=== PATIENT | male | born 1930 | race Caucasian/White ===

== ENCOUNTER 2017-03-26 00:02 | Inpatient (IN) | payer MEDICARE ==
[~2017-03-26] VITALS: Ht 167.6 cm; Wt 80.5 kg
[2017-03-26] MEDS ORDERED: CITA10TA8 PO (01:00)
[2017-03-26] MEDS ORDERED: HYDR12.58 PO (01:00)
[2017-03-26] MEDS ORDERED: LISI-334 PO (01:00)
[2017-03-26] MEDS ORDERED: OMEG-33 PO (01:00)
[2017-03-26] MEDS ORDERED: MEMA10TA PO (01:00)
[2017-03-26] MEDS ORDERED: DONE10TA61 PO (01:00)
[2017-03-26] MEDS ORDERED: CARB1TAB5 PO (01:00)
[2017-03-26] MEDS ORDERED: OMEP20TA63 PO (01:00)
[2017-03-26] MEDS ORDERED: LEVE500T56 PO (01:00)
[2017-03-26 02:57] VITALS: BP 144/75
[2017-03-26] MEDS ORDERED: METHYL SALICYLATE/MENTHOL TOPICAL OINTMENT 29GM TUBE. TP PRN (03:00)
[2017-03-26] MEDS ORDERED: ACETAMINOPHEN 325 MG TABLET PO PRN (03:00)
[2017-03-26] MEDS ORDERED: MAGNESIUM HYDROXIDE 2,400 MG/30 ML ORAL.SUSP. PO PRN (03:00)
[2017-03-26] MEDS ORDERED: MAG HYDROX/AL HYDROX/SIMETH 30 ML ORAL.SUSP PO PRN (03:00)
[2017-03-26 06:10] VITALS: BP 158/78
[2017-03-26] MEDS ORDERED: traZODone 50 MG TABLET. PO PRN ×2 (06:45→19:30)
[2017-03-26] MEDS: PANTOPRAZOLE 40 MG TABLET. PO SCH (07:27)
[2017-03-26] MEDS ORDERED: CITALOPRAM 10 MG TABLET. PO SCH (09:00)
[2017-03-26] MEDS ORDERED: FLU VACC QS2017-18 (36MOS+)/PF 0.5 ML SYRINGE. VAX IM ONE (09:00)
[2017-03-26] MEDS: levETIRAcetam 500 MG TABLET PO SCH ×2 (10:37→19:49)
[2017-03-26] MEDS: OMEGA-3 FATTY ACIDS/FISH OIL 1,000 MG CAPSULE. PO SCH (10:37)
[2017-03-26] MEDS: CARBIDOPA/LEVODOPA CR 50/200MG TABLET.SA PO SCH ×2 (10:37→19:49)
[2017-03-26] MEDS: MEMANTINE 10 MG TABLET. PO SCH ×2 (10:37→19:50)
[2017-03-26] MEDS: LISINOPRIL 20 MG TABLET PO SCH (10:38)
[2017-03-26] MEDS: hydroCHLOROthiazide 12.5 MG CAPSULE PO SCH (10:38)
[2017-03-26 15:57] VITALS: BP 147/75
--- NOTE | 2017-03-26 16:22 | EKG ---
[address] [address] Test Date: 2017-03-26 Test Time: 16:19:34 Pat Name: FATOU HIGGINS Department: Room: [address] [place] [address] Gender: M Burrer Machine: : [id number] Requested By: KOSTAS FONTANEZ Order Number: [id number] Reading MD: Rodrigo Apodaca Measurements Intervals [place] Rate: 73 P: 49 CO: 160 QRS: 12 QRSD: 72 T: 28 QT: 394 QTc: 438 Interpretive Statements SINUS RHYTHM Electronically Signed On 03-28-2017 8:33:21 CDT by Rodrigo Apodaca
[2017-03-26] MEDS: traZODone 100 MG TABLET. PO SCH (19:49)
[2017-03-26] MEDS: DONEPEZIL HCL 10 MG TABLET PO SCH (19:50)
[2017-03-26] MEDS: MIRTAZAPINE 7.5 MG TABLET. PO SCH (19:50)
--- NOTE | 2017-03-26 20:33 | PDOC ---
Exam Je Demential Exam: Je Note: Please also refer to the separate dictated note~for this date of service dictated separately.~Patient seen individually. Discussed the patient with Nursing staff reviewed the chart.~Reviewed interim history and current functioning. Reviewed vital signs,~Labs/ Radiology~and current medications noted below. Continue current treatment with the changes noted in the dictated addendum note Assessment: Vital Signs: Vital Signs Date Time Temp Pulse Resp B/P (MAP) Pulse Ox O2 Delivery O2 Flow Rate FiO2 03/26/17 15:57 97.2 60 18 147/75 (99) 93 03/26/17 06:10 Room Air I&O Intake and Output 03/27/17 07:00 Intake Total 720 ml Balance 720 ml Intake Oral 720 ml Current Medications: Meds: Current Medications Influenza Virus Vaccine Quadrival (Fluarix Quad [id number] Syringe) 0.5 ml ONCE ONCE VAX IM ; Start 03/26/17 at 09:00; Stop 03/26/17 at 19:21; Status DC Acetaminophen (Tylenol) 650 mg PRN Q6HRS PRN PO PAIN / TEMP; Start 03/26/17 at 03:00 Multi-Ingredient Ointment (Analgesic [place]) 1 mary PRN QID PRN TP MUSCLE PAIN; Start 03/26/17 at 03:00 Al Hydroxide/Mg Hydroxide (Mylanta Plus Xs) 15 ml PRN AFTMEALHC PRN PO DYSPEPSIA; Start 03/26/17 at 03:00 Magnesium Hydroxide (Milk Of Magnesia) 2,400 mg PRN QHS PRN PO CONSTIPATION; Start 03/26/17 at 03:00 Citalopram Hydrobromide (CeleXA) 10 mg DAILY PO Last administered on 10:37; Start 03/26/17 at 09:00; Stop 03/26/17 at 19:27; Status DC Donepezil HCl (Aricept) 10 mg QHS PO Last administered on 03/26/17 19:50; Start 03/26/17 at 21:00 Memantine (Namenda) 10 mg BID PO Last administered on 03/26/17 19:50; Start 03/26/17 at 09:00 Carbidopa/Levodopa (Sinemet Cr) 1 tab.sa BID PO Last administered on 19:49; Start 03/26/17 at 09:00 Levetiracetam (Keppra) 500 mg BID PO Last administered on 03/26/17 19:49; Start 03/26/17 at 09:00 Lisinopril (Prinivil) 20 mg DAILY PO Last administered on 03/26/17 10:38; Start 03/26/17 at 09:00 Hydrochlorothiazide (Microzide) 12.5 mg DAILY PO Last administered on 10:38; Start 03/26/17 at 09:00 Fish Oil (Fish Oil) 1,000 mg DAILY PO Last administered on 03/26/17 10:37; Start 03/26/17 at 09:00 Pantoprazole Sodium (Protonix) 40 mg DAILYAC PO Last administered on 07:27; Start 03/26/17 at 07:30 Olanzapine (ZyPREXA ZYDIS) 2.5 mg PRN Q2HR PRN PO PSYCHOSIS Last administered on 03/26/17 07:27; Start 03/26/17 at 06:45 Trazodone HCl (Desyrel) 50 mg QHS PO ; Start 03/26/17 at 21:00; Stop 03/26/17 at 21:00; Status DC Trazodone HCl (Desyrel) 50 mg PRN QHS PRN PO INSOMNIA; Start 03/26/17 at 06:45 ; Stop 03/26/17 at 19:27; Status DC Influenza Virus Vaccine Quadrival (Fluarix Quad [id number] Syringe) 0.5 ml ONCE ONCE VAX IM ; Start 03/28/17 at 09:00; Stop 03/28/17 at 09:01 Trazodone HCl (Desyrel) 100 mg PRN QHS PRN PO INSOMNIA; Start 03/26/17 at 19: 30; Stop 03/26/17 at 19:32; Status DC Trazodone HCl (Desyrel) 100 mg QHS PO ; Start 03/26/17 at 21:00; Stop at 21:00; Status DC Sertraline HCl (Zoloft) 50 mg DAILY PO ; Start 03/27/17 at 09:00 Mirtazapine (Remeron) 7.5 mg QHS PO Last administered on 03/26/17 19:50; Start 03/26/17 at 21:00 Trazodone HCl (Desyrel) 100 mg QHS PO Last administered on 03/26/17 19:49; Start 03/26/17 at 21:00 Trazodone HCl (Desyrel) 100 mg PRN QHS PRN PO Insomnia; Start 03/26/17 at 19: 30 Active Scripts Active Reported Prilosec Otc (Omeprazole Magnesium) 20 Mg Tablet.dr 20 Mg PO DAILY [place] 3 1,000 Mg Softgel ([place]-3 Fatty Acids/Fish Oil) 1 Each Capsule 1,000 Mg PO DAILY Namenda (Memantine Hcl) 10 Mg Tablet 10 Mg PO BID Lisinopril 20 Mg Tablet 20 Mg PO DAILY Keppra (Levetiracetam) 500 Mg Tablet 500 Mg PO BID Hydrochlorothiazide Tablet (Hydrochlorothiazide) 12.5 Mg Tablet 12.5 Mg PO DAILY Aricept (Donepezil Hcl) 10 Mg Tablet 10 Mg PO QHS Celexa (Citalopram Hydrobromide) 10 Mg Tablet 10 Mg PO DAILY Sinemet Cr 50-200 Tablet (Carbidopa/Levodopa) 1 Each Tablet.er 1 Tab PO BID OSMANY KEYES MD Mar 26, 2017 20:33
[2017-03-26 20:59] LABS: BASO # 0.1 x10^3/uL (0.0-0.2); BASO % 1 % (0-3); EOS # 0.3 x10^3/uL (0.0-0.7); EOS % 3 % (0-3); HEMATOCRIT 45.5 % (39.0-53.0); HEMOGLOBIN 15.5 g/dL (13.0-17.5); LYMPH # 2.7 x10^3/uL (1.0-4.8); LYMPH % 29 % (24-48); MEAN CORPUSCULAR HEMOGLOBIN 32 pg (25-35); MEAN CORPUSCULAR HGB CONC 34 g/dL (31-37); MEAN CORPUSCULAR VOLUME 93 fL (79-100); MONO # 1.1 x10^3/uL (0.0-1.1); MONO % 12 % (0-9); NEUT % 55 % (31-73); PLATELET COUNT 252 x10^3/uL (140-400); RED BLOOD COUNT 4.87 x10^6/uL (4.30-5.70); RED CELL DISTRIBUTION WIDTH 13.6 % (11.5-14.5); WHITE BLOOD COUNT 9.3 x10^3/uL (4.0-11.0)
[2017-03-26] MEDS ORDERED: traZODone 50 MG TABLET. PO SCH ×2 (21:00)
[2017-03-26 21:12] LABS: ALBUMIN 3.7 g/dL (3.4-5.0); ALBUMIN/GLOBULIN RATIO 1.1 (1.0-1.7); CALCIUM 9.3 mg/dL (8.5-10.1); GFR 71.2; MAGNESIUM 1.9 mg/dL (1.8-2.4); POTASSIUM 3.7 mmol/L (3.5-5.1); TOTAL BILIRUBIN 1.3 mg/dL (0.2-1.0); TOTAL PROTEIN 7.2 g/dL (6.4-8.2)
[2017-03-27 05:44] VITALS: BP 127/57
[2017-03-27] MEDS: MEMANTINE 10 MG TABLET. PO SCH ×2 (07:39→20:00)
[2017-03-27] MEDS: CARBIDOPA/LEVODOPA CR 50/200MG TABLET.SA PO SCH ×2 (07:39→20:00)
[2017-03-27] MEDS: PANTOPRAZOLE 40 MG TABLET. PO SCH (07:41)
[2017-03-27] MEDS: levETIRAcetam 500 MG TABLET PO SCH ×2 (07:41→20:01)
[2017-03-27] MEDS: hydroCHLOROthiazide 12.5 MG CAPSULE PO SCH (07:41)
[2017-03-27] MEDS: OMEGA-3 FATTY ACIDS/FISH OIL 1,000 MG CAPSULE. PO SCH (07:41)
[2017-03-27] MEDS: LISINOPRIL 20 MG TABLET PO SCH (07:41)
[2017-03-27] MEDS: SERTRALINE 50 MG TABLET. PO SCH (07:42)
--- NOTE | 2017-03-27 14:35 | HP ---
ADMIT DATE: 03/26/2017 PSYCHIATRIC ADMISSION HISTORY/EVALUATION DATE OF ADMISSION: 03/26/2017 ADMITTING PHYSICIAN: Dre Oliva MD IDENTIFYING DATA: The patient is an 86-year-old male, referred to us from [facility] where he presented to the Emergency Room from his home on account of increased agitation, being angry, aggressive, wandering out of the house next to the highway trying to drive. He has been combative, delusional, losing weight and family have been taking him to the Emergency Room several times and attempts have been made at placement, all of which have failed. Behaviors were deemed dangerous, out of control, unmanageable consequent to his dementia, delusions, agitation. He is referred for inpatient psychiatric stabilization. CHIEF COMPLAINT: "He has a need to get to [place]." His informant, current and past records reliable. Patient's reliability poor due to his dementia, nursing information reliable. HISTORY OF PRESENT ILLNESS: The patient has a history of dementia, Alzheimer's, vascular with questionably secondary to Parkinson's and Lewy body. He has been residing at home with family, but as noted above, behaviors have been getting out of control, unmanageable, dangerous. He has been attempting to ask strangers for a ride to [place]. He is at risk for injury to self due to elopement next to a highway, trying to drive ____ seeking. He has had sleep and appetite changes with weight loss. Delusions have been worsening. No active suicidal or homicidal ideation other than dangerous behaviors noted above. No clear history of bipolar disorder. PAST PSYCHIATRIC HISTORY: As above. MEDICAL HISTORY: Parkinson's disease, hyperlipidemia, hypertension, CA prostate, GERD, history of seizure disorder. ALLERGIES: PENICILLIN. He is a full code. ACCU-CHEKS: None. Diet is regular. Takes his medications whole. Ambulates independently. UA was negative at [facility] Emergency Room. CURRENT PSYCHOTROPICS: Namenda 10 mg b.i.d., Celexa 10 mg a day, Aricept 10 mg at bedtime, Keppra 500 mg b.i.d., trazodone 50 mg at bedtime, may repeat x 1 and Zyprexa was added p.r.n. following his hospitalization here with us for psychosis, agitation. FAMILY HISTORY: Noncontributory. SOCIAL HISTORY: No alcohol, drug abuse, physical, sexual or elder abuse. He is not known to be a perpetrator. 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 He is wearing a red hat ambulating up and down the hallway, initially on the telephone with his family, oriented to himself. Insight, judgment, recent and remote memory, attention, concentration, fund of knowledge poor, consistent with his diagnosis. He is somewhat delusional, suspicious. Attention span short. Language function intact. No active suicidal or homicidal ideation. Insight poor. Judgment poor, consequent to above. While on the unit, he has been checking doors repeatedly, rattles the door, resistive to medications. Slept very poorly the previous evening, though he was admitted very early in the morning at 5:00 a.m., does a little better with certain staff members. REVIEW OF SYSTEMS: No CV, , eye, ENT or pulmonary system symptoms on review. Reliability poor. Reaction to hospitalization, the patient oblivious of this. ASSETS: The patient is reasonably healthy, supportive family. IMPRESSION: Major neurocognitive disorder, multifactorial; Alzheimer's, vascular, possibly secondary to Parkinson's with delusion; depression, behavioral disturbance; anxiety disorder, unspecified; impulse control disorder, unspecified; psychotic disorder, unspecified. Rest diagnosis as noted above. TREATMENT PLAN: Admit to the geropsychiatry unit at [facility]. I will see the patient daily individually from a psychiatric standpoint. Medical followup per Dr. Castellanos/Dr. Chamberlain. We will change the Celexa to Zoloft 50 mg a day, which should be more efficacious from his anxiety, mood symptoms and agitation. We will increase trazodone to 100 mg at bedtime, may repeat x 1 p.r.n. insomnia. Continue the rest of his psychotropics, observe baseline, then adjust as clinically indicated. May add Depakote as a mood stabilizer, consider whether Keppra could be worsening his agitation as well. We will have a Neurology consult with Dr. Friedman for seizure disorder management. MAN Diana OLIVA MD DR: MARAL/quinton JOB#: [id number] / [id number]
[2017-03-27 16:07] VITALS: BP 103/63
[2017-03-27 17:45] LABS: THYROID STIM HORMONE (TSH) 1.87 uIU/mL (0.358-3.740)
[2017-03-27 19:12] LABS: T3 TOTAL 120 ng/dL (71-180); THYROXINE 6.3 ug/dL (4.5-12.0)
[2017-03-27] MEDS: DONEPEZIL HCL 10 MG TABLET PO SCH (20:00)
[2017-03-27] MEDS: MIRTAZAPINE 7.5 MG TABLET. PO SCH (20:00)
[2017-03-27] MEDS: traZODone 100 MG TABLET. PO SCH ×2 (20:01→22:26)
--- NOTE | 2017-03-27 21:59 | PDOC ---
Exam Je Demential Exam: Je Note: Please also refer to the separate dictated note~for this date of service dictated separately.~Patient seen individually. Discussed the patient with Nursing staff reviewed the chart.~Reviewed interim history and current functioning. Reviewed vital signs,~Labs/ Radiology~and current medications noted below. Continue current treatment with the changes noted in the dictated addendum note Assessment: Vital Signs: Vital Signs Date Time Temp Pulse Resp B/P (MAP) Pulse Ox O2 Delivery O2 Flow Rate FiO2 03/27/17 16:07 98.2 78 16 103/63 (76) 95 03/26/17 06:10 Room Air I&O Intake and Output 03/28/17 07:00 Intake Total 240 ml Balance 240 ml Intake Oral 240 ml Current Medications: Meds: Current Medications Influenza Virus Vaccine Quadrival (Fluarix Quad [id number] Syringe) 0.5 ml ONCE ONCE VAX IM ; Start 03/26/17 at 09:00; Stop 03/26/17 at 19:21; Status DC Acetaminophen (Tylenol) 650 mg PRN Q6HRS PRN PO PAIN / TEMP; Start 03/26/17 at 03:00 Multi-Ingredient Ointment (Analgesic [place]) 1 mary PRN QID PRN TP MUSCLE PAIN; Start 03/26/17 at 03:00 Al Hydroxide/Mg Hydroxide (Mylanta Plus Xs) 15 ml PRN AFTMEALHC PRN PO DYSPEPSIA; Start 03/26/17 at 03:00 Magnesium Hydroxide (Milk Of Magnesia) 2,400 mg PRN QHS PRN PO CONSTIPATION; Start 03/26/17 at 03:00 Citalopram Hydrobromide (CeleXA) 10 mg DAILY PO Last administered on 10:37; Start 03/26/17 at 09:00; Stop 03/26/17 at 19:27; Status DC Donepezil HCl (Aricept) 10 mg QHS PO Last administered on 03/27/17 20:00; Start 03/26/17 at 21:00 Memantine (Namenda) 10 mg BID PO Last administered on 03/27/17 20:00; Start 03/26/17 at 09:00 Carbidopa/Levodopa (Sinemet Cr) 1 tab.sa BID PO Last administered on 20:00; Start 03/26/17 at 09:00 Levetiracetam (Keppra) 500 mg BID PO Last administered on 03/27/17 20:01; Start 03/26/17 at 09:00 Lisinopril (Prinivil) 20 mg DAILY PO Last administered on 03/27/17 07:41; Start 03/26/17 at 09:00 Hydrochlorothiazide (Microzide) 12.5 mg DAILY PO Last administered on 07:41; Start 03/26/17 at 09:00 Fish Oil (Fish Oil) 1,000 mg DAILY PO Last administered on 03/27/17 07:41; Start 03/26/17 at 09:00 Pantoprazole Sodium (Protonix) 40 mg DAILYAC PO Last administered on 07:41; Start 03/26/17 at 07:30 Olanzapine (ZyPREXA ZYDIS) 2.5 mg PRN Q2HR PRN PO PSYCHOSIS Last administered on 03/27/17 14:57; Start 03/26/17 at 06:45 Trazodone HCl (Desyrel) 50 mg QHS PO ; Start 03/26/17 at 21:00; Stop 03/26/17 at 21:00; Status DC Trazodone HCl (Desyrel) 50 mg PRN QHS PRN PO INSOMNIA; Start 03/26/17 at 06:45 ; Stop 03/26/17 at 19:27; Status DC Influenza Virus Vaccine Quadrival (Fluarix Quad [id number] Syringe) 0.5 ml ONCE ONCE VAX IM ; Start 03/28/17 at 09:00; Stop 03/28/17 at 09:01 Trazodone HCl (Desyrel) 100 mg PRN QHS PRN PO INSOMNIA; Start 03/26/17 at 19: 30; Stop 03/26/17 at 19:32; Status DC Trazodone HCl (Desyrel) 100 mg QHS PO ; Start 03/26/17 at 21:00; Stop at 21:00; Status DC Sertraline HCl (Zoloft) 50 mg DAILY PO Last administered on 03/27/17 07:42; Start 03/27/17 at 09:00 Mirtazapine (Remeron) 7.5 mg QHS PO Last administered on 03/27/17 20:00; Start 03/26/17 at 21:00 Trazodone HCl (Desyrel) 100 mg QHS PO Last administered on 03/27/17 20:01; Start 03/26/17 at 21:00 Trazodone HCl (Desyrel) 100 mg PRN QHS PRN PO Insomnia; Start 03/26/17 at 19: 30 Quetiapine Fumarate (SEROquel) 12.5 mg BID92 PO ; Start 03/28/17 at 09:00 Active Scripts Active Reported Prilosec Otc (Omeprazole Magnesium) 20 Mg Tablet.dr 20 Mg PO DAILY [place] 3 1,000 Mg Softgel ([place]-3 Fatty Acids/Fish Oil) 1 Each Capsule 1,000 Mg PO DAILY Namenda (Memantine Hcl) 10 Mg Tablet 10 Mg PO BID Lisinopril 20 Mg Tablet 20 Mg PO DAILY Keppra (Levetiracetam) 500 Mg Tablet 500 Mg PO BID Hydrochlorothiazide Tablet (Hydrochlorothiazide) 12.5 Mg Tablet 12.5 Mg PO DAILY Aricept (Donepezil Hcl) 10 Mg Tablet 10 Mg PO QHS Celexa (Citalopram Hydrobromide) 10 Mg Tablet 10 Mg PO DAILY Sinemet Cr 50-200 Tablet (Carbidopa/Levodopa) 1 Each Tablet.er 1 Tab PO BID Diagnosis: Problems: (1) Alzheimer's dementia (2) Anxiety disorder (3) Impulse control disorder (4) Major depressive disorder, recurrent episode (5) Major neurocognitive disorder, due to vascular disease, with behavioral disturbance, mild (6) Parkinson's disease (7) Vascular dementia with behavioral disturbance OSMANY KEYES MD Mar 27, 2017 21:59
[2017-03-28 05:13] LABS: HEMOGLOBIN A1C 5.2 % (4.8-5.6)
[2017-03-28 05:34] VITALS: BP 155/78
[2017-03-28] MEDS: levETIRAcetam 500 MG TABLET PO SCH ×2 (07:59→19:57)
[2017-03-28] MEDS: PANTOPRAZOLE 40 MG TABLET. PO SCH (07:59)
[2017-03-28] MEDS: CARBIDOPA/LEVODOPA CR 50/200MG TABLET.SA PO SCH ×2 (07:59→19:58)
[2017-03-28] MEDS: SERTRALINE 50 MG TABLET. PO SCH (07:59)
[2017-03-28] MEDS: OMEGA-3 FATTY ACIDS/FISH OIL 1,000 MG CAPSULE. PO SCH ×2 (08:00→09:00)
[2017-03-28] MEDS: LISINOPRIL 20 MG TABLET PO SCH (08:00)
[2017-03-28] MEDS: hydroCHLOROthiazide 12.5 MG CAPSULE PO SCH (08:00)
[2017-03-28] MEDS: MEMANTINE 10 MG TABLET. PO SCH ×2 (08:00→19:58)
[2017-03-28] MEDS ORDERED: QUEtiapine 25 MG TABLET. ONE (08:02)
[2017-03-28] MEDS: QUEtiapine 25 MG TABLET. PO SCH ×3 (08:03→15:51)
[2017-03-28] MEDS ORDERED: FLU VACC QS2017-18 (36MOS+)/PF 0.5 ML SYRINGE. VAX IM ONE (09:00)
--- NOTE | 2017-03-28 10:54 | HP ---
ADMIT DATE: 03/26/2017 REASON FOR ADMISSION TO SENIOR BEHAVIORAL UNIT: This is an 86-year-old gentleman, who actually came from his own home where he has had increased agitation, angry, aggressive, wandering out of the house next to the highway trying to drive, losing weight and combative. He has had several visits to the ER at [facility], but has not had any inpatient visits. He himself says he is angry and that he knows when he goes out for a walk he always comes back. He is confused. His daughter is his guardian. ALLERGIES: PENICILLIN. PAST MEDICAL HISTORY: Parkinson's, dementia, hyperlipidemia, hypertension, prostate cancer, and GERD. MEDICATIONS: Reviewed and are available on the MAR. SOCIAL HISTORY: He is a . He has 2 daughters. He states he lived with them, but he states he had his own house. 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 REVIEW OF SYSTEMS: The patient denies any complaints and became annoyed when I asked him, do you have a sore throat, fever, etc., he became annoyed. OBJECTIVE: VITAL SIGNS: Blood pressure 127/57, pulse 67, temperature 98.2, pulse ox 95% on room air. Height 66 inches, weight 178 pounds. GENERAL: Well kept elderly gentleman in no acute distress. HEENT: His TMs were intact. His eyes were clear. Nose was patent. Throat was clear. NECK: Supple, without adenopathy. There were no carotid bruits. LUNGS: Clear to auscultation. CARDIOVASCULAR: Regular rhythm and rate. ABDOMEN: Soft, nontender. EXTREMITIES: Without edema. Cranial nerves were intact. He has a severe resting tremor, particularly the left arm. MENTAL STATUS: Alert and oriented x 2. He is having trouble with word finding and with coming up with the person or place that he wants to talk about or date. He stated he was 70 years old. Did state he was a . LABORATORY DATA: Normal CBC DICTATION ENDS HERE. JATINDER PENN DO DR: JEREMIAH/quinton JOB#: [id number] / [id number]
[2017-03-28] MEDS ORDERED: CYANOCOBALAMIN (VITAMIN B-12) 1,000 MCG/ML VIAL IM SCH (14:00)
[2017-03-28] MEDS: CHOLECALCIFEROL (VITAMIN D3) 50,000 UNIT CAPSULE PO SCH ×2 (15:51→19:58)
[2017-03-28 16:28] VITALS: BP 102/66
[2017-03-28] MEDS: MIRTAZAPINE 7.5 MG TABLET. PO SCH (19:58)
[2017-03-28] MEDS: DONEPEZIL HCL 10 MG TABLET PO SCH (19:58)
[2017-03-28] MEDS: traZODone 100 MG TABLET. PO PRN (19:59)
--- NOTE | 2017-03-28 20:42 | PDOC ---
Exam Je Demential Exam: Je Note: Please also refer to the separate dictated note~for this date of service dictated separately.~Patient seen individually. Discussed the patient with Nursing staff reviewed the chart.~Reviewed interim history and current functioning. Reviewed vital signs,~Labs/ Radiology~and current medications noted below. Continue current treatment with the changes noted in the dictated addendum note Assessment: Vital Signs: Vital Signs Date Time Temp Pulse Resp B/P (MAP) Pulse Ox O2 Delivery O2 Flow Rate FiO2 03/28/17 16:28 97.4 73 18 102/66 (78) 93 Room Air I&O Intake and Output 03/29/17 07:00 Intake Total 900 ml Balance 900 ml Intake Oral 900 ml Current Medications: Meds: Current Medications Influenza Virus Vaccine Quadrival (Fluarix Quad [id number] Syringe) 0.5 ml ONCE ONCE VAX IM ; Start 03/26/17 at 09:00; Stop 03/26/17 at 19:21; Status DC Acetaminophen (Tylenol) 650 mg PRN Q6HRS PRN PO PAIN / TEMP; Start 03/26/17 at 03:00 Multi-Ingredient Ointment (Analgesic [place]) 1 mary PRN QID PRN TP MUSCLE PAIN; Start 03/26/17 at 03:00 Al Hydroxide/Mg Hydroxide (Mylanta Plus Xs) 15 ml PRN AFTMEALHC PRN PO DYSPEPSIA; Start 03/26/17 at 03:00 Magnesium Hydroxide (Milk Of Magnesia) 2,400 mg PRN QHS PRN PO CONSTIPATION; Start 03/26/17 at 03:00 Citalopram Hydrobromide (CeleXA) 10 mg DAILY PO Last administered on 10:37; Start 03/26/17 at 09:00; Stop 03/26/17 at 19:27; Status DC Donepezil HCl (Aricept) 10 mg QHS PO Last administered on 03/28/17 19:58; Start 03/26/17 at 21:00 Memantine (Namenda) 10 mg BID PO Last administered on 03/28/17 19:58; Start 03/26/17 at 09:00 Carbidopa/Levodopa (Sinemet Cr) 1 tab.sa BID PO Last administered on 03/28/17 19:58; Start 03/26/17 at 09:00 Levetiracetam (Keppra) 500 mg BID PO Last administered on 03/28/17 19:57; Start 03/26/17 at 09:00 Lisinopril (Prinivil) 20 mg DAILY PO Last administered on 03/28/17 08:00; Start 03/26/17 at 09:00 Hydrochlorothiazide (Microzide) 12.5 mg DAILY PO Last administered on 08:00; Start 03/26/17 at 09:00 Fish Oil (Fish Oil) 1,000 mg DAILY PO Last administered on 03/27/17 07:41; Start 03/26/17 at 09:00 Pantoprazole Sodium (Protonix) 40 mg DAILYAC PO Last administered on 03/28/17 07:59; Start 03/26/17 at 07:30 Olanzapine (ZyPREXA ZYDIS) 2.5 mg PRN Q2HR PRN PO PSYCHOSIS Last administered on 03/28/17 19:59; Start 03/26/17 at 06:45 Trazodone HCl (Desyrel) 50 mg QHS PO ; Start 03/26/17 at 21:00; Stop 03/26/17 at 21:00; Status DC Trazodone HCl (Desyrel) 50 mg PRN QHS PRN PO INSOMNIA; Start 03/26/17 at 06:45 ; Stop 03/26/17 at 19:27; Status DC Influenza Virus Vaccine Quadrival (Fluarix Quad [id number] Syringe) 0.5 ml ONCE ONCE VAX IM Last administered on 03/28/17 15:51; Start 03/28/17 at 09:00; Stop 03/28/17 at 09:01; Status DC Trazodone HCl (Desyrel) 100 mg PRN QHS PRN PO INSOMNIA; Start 03/26/17 at 19: 30; Stop 03/26/17 at 19:32; Status DC Trazodone HCl (Desyrel) 100 mg QHS PO ; Start 03/26/17 at 21:00; Stop at 21:00; Status DC Sertraline HCl (Zoloft) 50 mg DAILY PO Last administered on 03/28/17 07:59; Start 03/27/17 at 09:00 Mirtazapine (Remeron) 7.5 mg QHS PO Last administered on 03/28/17 19:58; Start 03/26/17 at 21:00 Trazodone HCl (Desyrel) 100 mg QHS PO Last administered on 03/27/17 22:26; Start 03/26/17 at 21:00 Trazodone HCl (Desyrel) 100 mg PRN QHS PRN PO Insomnia Last administered on 19:59; Start 03/26/17 at 19:30 Quetiapine Fumarate (SEROquel) 12.5 mg BID92 PO Last administered on 03/28/17 08:03; Start 03/28/17 at 09:00 Quetiapine Fumarate (SEROquel) 25 mg STK-MED ONCE .ROUTE ; Start 03/28/17 at 08: 02; Stop 03/28/17 at 08:03; Status DC Cyanocobalamin (Vitamin B-12) 1,000 mcg [id number] IM Last administered on 15:51; Start 03/28/17 at 14:00 Vitamin D (Vitamin D3) 50,000 unit WEEKLY PO Last administered on 03/28/17 19: 58; Start 03/28/17 at 14:00 Active Scripts Active Reported Prilosec Otc (Omeprazole Magnesium) 20 Mg Tablet.dr 20 Mg PO DAILY [place] 3 1,000 Mg Softgel ([place]-3 Fatty Acids/Fish Oil) 1 Each Capsule 1,000 Mg PO DAILY Namenda (Memantine Hcl) 10 Mg Tablet 10 Mg PO BID Lisinopril 20 Mg Tablet 20 Mg PO DAILY Keppra (Levetiracetam) 500 Mg Tablet 500 Mg PO BID Hydrochlorothiazide Tablet (Hydrochlorothiazide) 12.5 Mg Tablet 12.5 Mg PO DAILY Aricept (Donepezil Hcl) 10 Mg Tablet 10 Mg PO QHS Celexa (Citalopram Hydrobromide) 10 Mg Tablet 10 Mg PO DAILY Sinemet Cr 50-200 Tablet (Carbidopa/Levodopa) 1 Each Tablet.er 1 Tab PO BID Diagnosis: Problems: (1) Alzheimer's dementia (2) Anxiety disorder (3) Impulse control disorder (4) Major depressive disorder, recurrent episode (5) Major neurocognitive disorder, due to vascular disease, with behavioral disturbance, mild (6) Parkinson's disease (7) Vascular dementia with behavioral disturbance OSMANY KEYES MD Mar 28, 2017 20:42
--- NOTE | 2017-03-28 22:22 | PN ---
DATE: 03/27/2017 PSYCHIATRIC PROGRESS NOTE This is a late entry for date of service 03/27/2017, covers elements not covered in my initial note of 03/27/2017. SUBJECTIVE: The patient remains confused, is quite paranoid, suspicious, increasingly agitated, per nursing report, labile. Slept 7-1/2 hours previous evening. REVIEW OF SYSTEMS: No CV, , pulmonary, eye, ENT system symptoms on review as I met with him. Reliability poor. He is extremely irritable, paranoid, questioning me about different things confused as I met with him. MENTAL STATUS EXAM: Oriented to himself. Insight, judgment, recent and remote memory, attention, concentration, fund of knowledge poor, consistent with his diagnosis mentioned in my initial note. PLAN: Increase Seroquel to 12.5 mg twice a day at 9 a.m. and 2 p.m. Maintain Namenda 10 mg b.i.d., Zoloft 50 mg a day, Aricept 10 mg a day. He is on Keppra 500 mg b.i.d. for seizure, Zyprexa p.r.n., trazodone 100 mg at bedtime and may repeat x 1 for insomnia, and Remeron 7.5 mg p.o. at bedtime. Reviewed drug interactions. Risk/benefit ratio favors no further change for now. MAN Diana KEYES MD DR: MARAL/quinton JOB#: [id number] / [id number]
[2017-03-29 06:07] VITALS: BP 104/61
[2017-03-29] MEDS: OMEGA-3 FATTY ACIDS/FISH OIL 1,000 MG CAPSULE. PO SCH (07:12)
[2017-03-29] MEDS: levETIRAcetam 500 MG TABLET PO SCH (07:12)
[2017-03-29] MEDS: SERTRALINE 50 MG TABLET. PO SCH (07:12)
[2017-03-29] MEDS: CARBIDOPA/LEVODOPA CR 50/200MG TABLET.SA PO SCH ×2 (07:12→19:17)
[2017-03-29] MEDS: QUEtiapine 25 MG TABLET. PO SCH ×2 (07:13→13:24)
[2017-03-29] MEDS: hydroCHLOROthiazide 12.5 MG CAPSULE PO SCH (07:13)
[2017-03-29] MEDS: PANTOPRAZOLE 40 MG TABLET. PO SCH (07:14)
[2017-03-29] MEDS: MEMANTINE 10 MG TABLET. PO SCH ×2 (07:14→19:17)
[2017-03-29] MEDS: LISINOPRIL 20 MG TABLET PO SCH (07:14)
--- NOTE | 2017-03-29 11:16 | PN ---
DATE: 03/28/2017 PSYCHIATRIC PROGRESS NOTE This is a late entry, date of service 03/28/2017, covers elements not covered in my initial note of 03/28/2017. SUBJECTIVE: The patient was staffed at a treatment team meeting with the entire team and the patient's daughter, Larisa, who is his guardian, attended the conference. Larisa is a home health nurse and we discussed the patient's diagnoses, progress, treatment, placement options. The patient has been quite labile, paranoid, angry, yelling at times combative in the day room, having conversation when no one is around him, actively hallucinating, intermittently resistive to medications. Appetite is poor, slept 5 hours previous evening. Discussed the patient's diagnoses, progress, medications, discharge aftercare plans at length. REVIEW OF SYSTEMS: No CV, , pulmonary, eye, ENT system symptoms on review. Reliability poor. MENTAL STATUS EXAM: Oriented to himself. Insight, judgment, recent and remote memory, attention, concentration, fund of knowledge poor, consistent with his diagnoses mentioned in my initial note. PLAN: Seroquel was added 12.5 mg twice a day. We will continue with this change. Continue rest of the psychotropics. We will check with Dr. Friedman. Since Keppra, but sometimes worse the mood lability, agitation, whether it would be appropriate to change this to Depakote, which might additionally mood stabilizer from a psychiatric standpoint as well as covering for his seizure disorder. Review drug interaction. Risk/benefit ratio favors no further change. MAN Diana KEYES MD DR: MARAL/quinton JOB#: [id number] / [id number]
[2017-03-29 16:15] VITALS: BP 133/61
[2017-03-29] MEDS: MIRTAZAPINE 7.5 MG TABLET. PO SCH (19:17)
[2017-03-29] MEDS: traZODone 100 MG TABLET. PO SCH (19:18)
[2017-03-29] MEDS: DONEPEZIL HCL 10 MG TABLET PO SCH (19:18)
[2017-03-29] MEDS: DIVALPROEX ER 500 MG TAB.ER.24H PO SCH (19:33)
[2017-03-29 20:00] LABS: ALBUMIN 3.7 g/dL (3.4-5.0); CALCIUM 8.9 mg/dL (8.5-10.1); CREATININE 1.1 mg/dL (0.7-1.3); GFR 63.8; POTASSIUM 3.5 mmol/L (3.5-5.1); TOTAL BILIRUBIN 1.7 mg/dL (0.2-1.0); TOTAL PROTEIN 7.3 g/dL (6.4-8.2)
--- NOTE | 2017-03-29 20:32 | PDOC ---
Exam Je Demential Exam: Je Note: Please also refer to the separate dictated note~for this date of service dictated separately.~Patient seen individually. Discussed the patient with Nursing staff reviewed the chart.~Reviewed interim history and current functioning. Reviewed vital signs,~Labs/ Radiology~and current medications noted below. Continue current treatment with the changes noted in the dictated addendum note Assessment: Vital Signs: Vital Signs Date Time Temp Pulse Resp B/P (MAP) Pulse Ox O2 Delivery O2 Flow Rate FiO2 03/29/17 16:15 97.2 64 18 133/61 (85) 99 Room Air I&O Intake and Output 03/30/17 07:00 Intake Total 720 ml Balance 720 ml Intake Oral 720 ml Labs: Laboratory Tests Test 03/29/17 19:35 Sodium Level 135 mmol/L (136-145) L Potassium Level 3.5 mmol/L (3.5-5.1) Chloride Level 97 mmol/L (98-107) L Carbon Dioxide Level 32 mmol/L (21-32) Anion Gap 6 (6-14) Blood Urea Nitrogen 16 mg/dL (8-26) Creatinine 1.1 mg/dL (0.7-1.3) Estimated GFR (Cockcroft-Gault) 63.8 BUN/Creatinine Ratio 15 (6-20) Glucose Level 108 mg/dL (70-99) H Calcium Level 8.9 mg/dL (8.5-10.1) Total Bilirubin 1.7 mg/dL (0.2-1.0) H Aspartate Amino Transferase (AST) 28 U/L (15-37) Alanine Aminotransferase (ALT) 18 U/L (16-63) Alkaline Phosphatase 65 U/L (46-116) Total Protein 7.3 g/dL (6.4-8.2) Albumin 3.7 g/dL (3.4-5.0) Albumin/Globulin Ratio 1.0 (1.0-1.7) Current Medications: Meds: Current Medications Influenza Virus Vaccine Quadrival (Fluarix Quad 6175-1014 Syringe) 0.5 ml ONCE ONCE VAX IM ; Start 03/26/17 at 09:00; Stop 03/26/17 at 19:21; Status DC Acetaminophen (Tylenol) 650 mg PRN Q6HRS PRN PO PAIN / TEMP; Start 03/26/17 at 03:00 Multi-Ingredient Ointment (Analgesic [place]) 1 mary PRN QID PRN TP MUSCLE PAIN; Start 03/26/17 at 03:00 Al Hydroxide/Mg Hydroxide (Mylanta Plus Xs) 15 ml PRN AFTMEALHC PRN PO DYSPEPSIA; Start 03/26/17 at 03:00 Magnesium Hydroxide (Milk Of Magnesia) 2,400 mg PRN QHS PRN PO CONSTIPATION; Start 03/26/17 at 03:00 Citalopram Hydrobromide (CeleXA) 10 mg DAILY PO Last administered on 10:37; Start 03/26/17 at 09:00; Stop 03/26/17 at 19:27; Status DC Donepezil HCl (Aricept) 10 mg QHS PO Last administered on 03/29/17 19:18; Start 03/26/17 at 21:00 Memantine (Namenda) 10 mg BID PO Last administered on 03/29/17 19:17; Start 03/26/17 at 09:00 Carbidopa/Levodopa (Sinemet Cr) 1 tab.sa BID PO Last administered on 03/29/17 19:17; Start 03/26/17 at 09:00 Levetiracetam (Keppra) 500 mg BID PO Last administered on 03/29/17 07:12; Start 03/26/17 at 09:00; Stop 03/29/17 at 17:44; Status DC Lisinopril (Prinivil) 20 mg DAILY PO Last administered on 03/29/17 07:14; Start 03/26/17 at 09:00 Hydrochlorothiazide (Microzide) 12.5 mg DAILY PO Last administered on 07:13; Start 03/26/17 at 09:00 Fish Oil (Fish Oil) 1,000 mg DAILY PO Last administered on 03/29/17 07:12; Start 03/26/17 at 09:00 Pantoprazole Sodium (Protonix) 40 mg DAILYAC PO Last administered on 03/29/17 07:14; Start 03/26/17 at 07:30 Olanzapine (ZyPREXA ZYDIS) 2.5 mg PRN Q2HR PRN PO PSYCHOSIS Last administered on 03/28/17 19:59; Start 03/26/17 at 06:45 Trazodone HCl (Desyrel) 50 mg QHS PO ; Start 03/26/17 at 21:00; Stop 03/26/17 at 21:00; Status DC Trazodone HCl (Desyrel) 50 mg PRN QHS PRN PO INSOMNIA; Start 03/26/17 at 06:45 ; Stop 03/26/17 at 19:27; Status DC Influenza Virus Vaccine Quadrival (Fluarix Quad [id number] Syringe) 0.5 ml ONCE ONCE VAX IM Last administered on 03/28/17 15:51; Start 03/28/17 at 09:00; Stop 03/28/17 at 09:01; Status DC Trazodone HCl (Desyrel) 100 mg PRN QHS PRN PO INSOMNIA; Start 03/26/17 at 19: 30; Stop 03/26/17 at 19:32; Status DC Trazodone HCl (Desyrel) 100 mg QHS PO ; Start 03/26/17 at 21:00; Stop at 21:00; Status DC Sertraline HCl (Zoloft) 50 mg DAILY PO Last administered on 03/29/17 07:12; Start 03/27/17 at 09:00 Mirtazapine (Remeron) 7.5 mg QHS PO Last administered on 03/29/17 19:17; Start 03/26/17 at 21:00 Trazodone HCl (Desyrel) 100 mg QHS PO Last administered on 03/29/17 19:18; Start 03/26/17 at 21:00 Trazodone HCl (Desyrel) 100 mg PRN QHS PRN PO Insomnia Last administered on 19:59; Start 03/26/17 at 19:30 Quetiapine Fumarate (SEROquel) 12.5 mg [id number] PO Last administered on 03/29/17 13:24; Start 03/28/17 at 09:00 Quetiapine Fumarate (SEROquel) 25 mg STK-MED ONCE .ROUTE ; Start 03/28/17 at 08: 02; Stop 03/28/17 at 08:03; Status DC Cyanocobalamin (Vitamin B-12) 1,000 mcg [id number] IM Last administered on 15:51; Start 03/28/17 at 14:00 Vitamin D (Vitamin D3) 50,000 unit WEEKLY PO Last administered on 03/28/17 19: 58; Start 03/28/17 at 14:00 Divalproex Sodium (Depakote Er) 500 mg QHS PO Last administered on 03/29/17 19 :33; Start 03/29/17 at 21:00 Active Scripts Active Reported Prilosec Otc (Omeprazole Magnesium) 20 Mg Tablet.dr 20 Mg PO DAILY [place] 3 1,000 Mg Softgel ([place]-3 Fatty Acids/Fish Oil) 1 Each Capsule 1,000 Mg PO DAILY Namenda (Memantine Hcl) 10 Mg Tablet 10 Mg PO BID Lisinopril 20 Mg Tablet 20 Mg PO DAILY Keppra (Levetiracetam) 500 Mg Tablet 500 Mg PO BID Hydrochlorothiazide Tablet (Hydrochlorothiazide) 12.5 Mg Tablet 12.5 Mg PO DAILY Aricept (Donepezil Hcl) 10 Mg Tablet 10 Mg PO QHS Celexa (Citalopram Hydrobromide) 10 Mg Tablet 10 Mg PO DAILY Sinemet Cr 50-200 Tablet (Carbidopa/Levodopa) 1 Each Tablet.er 1 Tab PO BID Diagnosis: Problems: (1) Alzheimer's dementia (2) Anxiety disorder (3) Impulse control disorder (4) Major depressive disorder, recurrent episode (5) Major neurocognitive disorder, due to vascular disease, with behavioral disturbance, mild (6) Parkinson's disease (7) Vascular dementia with behavioral disturbance OSMANY KEYES MD Mar 29, 2017 20:32
[2017-03-30] MEDS: OMEGA-3 FATTY ACIDS/FISH OIL 1,000 MG CAPSULE. PO SCH (08:07)
[2017-03-30] MEDS: LISINOPRIL 20 MG TABLET PO SCH (08:07)
[2017-03-30] MEDS: QUEtiapine 25 MG TABLET. PO SCH ×2 (08:07→13:48)
[2017-03-30] MEDS: PANTOPRAZOLE 40 MG TABLET. PO SCH (08:07)
[2017-03-30] MEDS: hydroCHLOROthiazide 12.5 MG CAPSULE PO SCH (08:07)
[2017-03-30] MEDS: SERTRALINE 50 MG TABLET. PO SCH (08:07)
[2017-03-30] MEDS: CARBIDOPA/LEVODOPA CR 50/200MG TABLET.SA PO SCH ×2 (08:07→19:37)
[2017-03-30] MEDS: MEMANTINE 10 MG TABLET. PO SCH ×2 (08:07→19:37)
--- NOTE | 2017-03-30 14:56 | HP ---
ADMIT DATE: 03/26/2017 REASON FOR ADMISSION TO SENIOR BEHAVIORAL UNIT: This is an 86-year-old gentleman, who actually came from his own home where he has had increased agitation, angry, aggressive, wandering out of the [place] drive, losing weight and combative. He has had several visits to the ER at [facility], but has not had any inpatient visits. He himself says he is angry and that he knows when he goes out for a walk he always comes back. He is confused. His daughter is his guardian. ALLERGIES: PENICILLIN. PAST MEDICAL HISTORY: Parkinson's, dementia, hyperlipidemia, hypertension, prostate cancer, and GERD. MEDICATIONS: Reviewed and are available on the MAR. SOCIAL HISTORY: He is a . He has 2 daughters. He states he lived with them, but he states he had his own house. 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 REVIEW OF SYSTEMS: The patient denies any complaints and became annoyed when I asked him, do you have a sore throat, fever, etc., he became annoyed. OBJECTIVE: VITAL SIGNS: Blood pressure 127/57, pulse 67, temperature 98.2, pulse ox 95% on room air. Height 66 inches, weight 178 pounds. GENERAL: Well kept elderly gentleman in no acute distress. HEENT: His TMs were intact. His eyes were clear. Nose was patent. Throat was clear. NECK: Supple, without adenopathy. There were no carotid bruits. LUNGS: Clear to auscultation. CARDIOVASCULAR: Regular rhythm and rate. ABDOMEN: Soft, nontender. EXTREMITIES: Without edema. Cranial nerves were intact. He has a severe resting tremor, particularly the left arm. MENTAL STATUS: Alert and oriented x 2. He is having trouble with word finding and with coming up with the person or place that he wants to talk about or date. He stated he was 70 years old. Did state he was a . LABORATORY DATA: Normal CBC. Chemistry: Bilirubin of 1.7. Low vitamin D, B12 277. ASSESSMENT: 1. Dementia with behavior disturbance. 2. Parkinson's disease. 3. Hyperlipidemia. 4. Hypomagnesemia. 5. Hypertension. 6. Vitamin D deficiency. 7. Prostate cancer. 8. GERD. 9. Elevated bilirubin, question unknown etiology. PLAN: Replace his vitamin D, replace his B12, repeat the bilirubin, PT and OT and follow along with Dr. Oliva. JATINDER PENN DO DR: JEREMIAH/quinton JOB#: [id number] / [id number]
[2017-03-30 16:02] VITALS: BP 115/72
[2017-03-30] MEDS: DIVALPROEX ER 500 MG TAB.ER.24H PO SCH (19:37)
[2017-03-30] MEDS: traZODone 100 MG TABLET. PO SCH (19:38)
[2017-03-30] MEDS: DONEPEZIL HCL 10 MG TABLET PO SCH (19:38)
[2017-03-30] MEDS: MIRTAZAPINE 7.5 MG TABLET. PO SCH (19:38)
--- NOTE | 2017-03-30 20:46 | PDOC ---
Exam Je Demential Exam: Je Note: Please also refer to the separate dictated note~for this date of service dictated separately.~Patient seen individually. Discussed the patient with Nursing staff reviewed the chart.~Reviewed interim history and current functioning. Reviewed vital signs,~Labs/ Radiology~and current medications noted below. Continue current treatment with the changes noted in the dictated addendum note Assessment: Vital Signs: Vital Signs Date Time Temp Pulse Resp B/P (MAP) Pulse Ox O2 Delivery O2 Flow Rate FiO2 03/30/17 16:02 97.9 76 18 115/72 (86) 97 03/29/17 16:15 Room Air I&O Intake and Output 03/31/17 07:00 Intake Total 900 ml Balance 900 ml Intake Oral 900 ml Current Medications: Meds: Current Medications Influenza Virus Vaccine Quadrival (Fluarix Quad 3137-2936 Syringe) 0.5 ml ONCE ONCE VAX IM ; Start 03/26/17 at 09:00; Stop 03/26/17 at 19:21; Status DC Acetaminophen (Tylenol) 650 mg PRN Q6HRS PRN PO PAIN / TEMP; Start 03/26/17 at 03:00 Multi-Ingredient Ointment (Analgesic [place]) 1 mray PRN QID PRN TP MUSCLE PAIN; Start 03/26/17 at 03:00 Al Hydroxide/Mg Hydroxide (Mylanta Plus Xs) 15 ml PRN AFTMEALHC PRN PO DYSPEPSIA; Start 03/26/17 at 03:00 Magnesium Hydroxide (Milk Of Magnesia) 2,400 mg PRN QHS PRN PO CONSTIPATION; Start 03/26/17 at 03:00 Citalopram Hydrobromide (CeleXA) 10 mg DAILY PO Last administered on 10:37; Start 03/26/17 at 09:00; Stop 03/26/17 at 19:27; Status DC Donepezil HCl (Aricept) 10 mg QHS PO Last administered on 03/30/17 19:38; Start 03/26/17 at 21:00 Memantine (Namenda) 10 mg BID PO Last administered on 03/30/17 19:37; Start 03/26/17 at 09:00 Carbidopa/Levodopa (Sinemet Cr) 1 tab.sa BID PO Last administered on 03/30/17 19:37; Start 03/26/17 at 09:00 Levetiracetam (Keppra) 500 mg BID PO Last administered on 03/29/17 07:12; Start 03/26/17 at 09:00; Stop 03/29/17 at 17:44; Status DC Lisinopril (Prinivil) 20 mg DAILY PO Last administered on 03/30/17 08:07; Start 03/26/17 at 09:00 Hydrochlorothiazide (Microzide) 12.5 mg DAILY PO Last administered on 08:07; Start 03/26/17 at 09:00 Fish Oil (Fish Oil) 1,000 mg DAILY PO Last administered on 03/30/17 08:07; Start 03/26/17 at 09:00 Pantoprazole Sodium (Protonix) 40 mg DAILYAC PO Last administered on 03/30/17 08:07; Start 03/26/17 at 07:30 Olanzapine (ZyPREXA ZYDIS) 2.5 mg PRN Q2HR PRN PO PSYCHOSIS Last administered on 03/29/17 21:02; Start 03/26/17 at 06:45 Trazodone HCl (Desyrel) 50 mg QHS PO ; Start 03/26/17 at 21:00; Stop 03/26/17 at 21:00; Status DC Trazodone HCl (Desyrel) 50 mg PRN QHS PRN PO INSOMNIA; Start 03/26/17 at 06:45 ; Stop 03/26/17 at 19:27; Status DC Influenza Virus Vaccine Quadrival (Fluarix Quad [id number] Syringe) 0.5 ml ONCE ONCE VAX IM Last administered on 03/28/17 15:51; Start 03/28/17 at 09:00; Stop 03/28/17 at 09:01; Status DC Trazodone HCl (Desyrel) 100 mg PRN QHS PRN PO INSOMNIA; Start 03/26/17 at 19: 30; Stop 03/26/17 at 19:32; Status DC Trazodone HCl (Desyrel) 100 mg QHS PO ; Start 03/26/17 at 21:00; Stop at 21:00; Status DC Sertraline HCl (Zoloft) 50 mg DAILY PO Last administered on 03/30/17 08:07; Start 03/27/17 at 09:00 Mirtazapine (Remeron) 7.5 mg QHS PO Last administered on 03/30/17 19:38; Start 03/26/17 at 21:00 Trazodone HCl (Desyrel) 100 mg QHS PO Last administered on 03/30/17 19:38; Start 03/26/17 at 21:00 Trazodone HCl (Desyrel) 100 mg PRN QHS PRN PO Insomnia Last administered on 19:59; Start 03/26/17 at 19:30 Quetiapine Fumarate (SEROquel) 12.5 mg [id number] PO Last administered on 03/30/17 13:48; Start 03/28/17 at 09:00 Quetiapine Fumarate (SEROquel) 25 mg STK-MED ONCE .ROUTE ; Start 03/28/17 at 08: 02; Stop 03/28/17 at 08:03; Status DC Cyanocobalamin (Vitamin B-12) 1,000 mcg [id number] IM Last administered on 15:51; Start 03/28/17 at 14:00 Vitamin D (Vitamin D3) 50,000 unit WEEKLY PO Last administered on 03/28/17 19: 58; Start 03/28/17 at 14:00 Divalproex Sodium (Depakote Er) 500 mg QHS PO Last administered on 03/30/17 19 :37; Start 03/29/17 at 21:00 Quetiapine Fumarate (SEROquel) 12.5 mg DAILYWSUP PO ; Start 03/31/17 at 17:00 Active Scripts Active Reported Prilosec Otc (Omeprazole Magnesium) 20 Mg Tablet.dr 20 Mg PO DAILY [place] 3 1,000 Mg Softgel ([place]-3 Fatty Acids/Fish Oil) 1 Each Capsule 1,000 Mg PO DAILY Namenda (Memantine Hcl) 10 Mg Tablet 10 Mg PO BID Lisinopril 20 Mg Tablet 20 Mg PO DAILY Keppra (Levetiracetam) 500 Mg Tablet 500 Mg PO BID Hydrochlorothiazide Tablet (Hydrochlorothiazide) 12.5 Mg Tablet 12.5 Mg PO DAILY Aricept (Donepezil Hcl) 10 Mg Tablet 10 Mg PO QHS Celexa (Citalopram Hydrobromide) 10 Mg Tablet 10 Mg PO DAILY Sinemet Cr 50-200 Tablet (Carbidopa/Levodopa) 1 Each Tablet.er 1 Tab PO BID Diagnosis: Problems: (1) Alzheimer's dementia (2) Anxiety disorder (3) Impulse control disorder (4) Major depressive disorder, recurrent episode (5) Major neurocognitive disorder, due to vascular disease, with behavioral disturbance, mild (6) Parkinson's disease (7) Vascular dementia with behavioral disturbance OSMANY KEYES MD Mar 30, 2017 20:46
[2017-03-30] MEDS: traZODone 100 MG TABLET. PO PRN (23:36)
--- NOTE | 2017-03-31 03:57 | PN ---
DATE: 03/29/2017 SUBJECTIVE: Covers the elements not covered in my initial note of 03/29/2017. Met with the patient evening of 03/29/2017. Overall, the patient has been little less agitated, wandering around the hallway, appetite is poor, compliant with his medications. Dr. Friedman is recommended that Keppra can be discontinued and changed to Depakote since the Keppra could be worsening his agitation. REVIEW OF SYSTEMS: No CV, , pulmonary, eye, ENT system symptoms on review. Reliability poor. MENTAL STATUS EXAM: Oriented to himself. Insight, judgment, recent and remote memory, attention, concentration, fund of knowledge poor, consistent with his diagnosis mentioned in my initial note. He was wearing a red hat with the logo "make [place] great again" and was very proud of this as address this with him. IMPRESSION: Unchanged from my initial note. PLAN: Change the Keppra to Depakote ER 500 mg p.o. at bedtime. Check CBC, CMP, valproic acid level in 3 days. Adjust to reach a therapeutic level. Continue the rest of the psychotropics reviewed and drug interactions. Risk/benefit ratio favors no further change. OSMANY KEYES MD DR: MARAL/quinton JOB#: [id number] / [id number]
[2017-03-31 05:53] VITALS: BP 125/65
[2017-03-31] MEDS: MEMANTINE 10 MG TABLET. PO SCH ×2 (08:13→19:28)
[2017-03-31] MEDS: SERTRALINE 50 MG TABLET. PO SCH (08:13)
[2017-03-31] MEDS: PANTOPRAZOLE 40 MG TABLET. PO SCH (08:13)
[2017-03-31] MEDS: CARBIDOPA/LEVODOPA CR 50/200MG TABLET.SA PO SCH ×2 (08:13→19:27)
[2017-03-31] MEDS: LISINOPRIL 20 MG TABLET PO SCH (08:13)
[2017-03-31] MEDS: hydroCHLOROthiazide 12.5 MG CAPSULE PO SCH (08:13)
[2017-03-31] MEDS: QUEtiapine 25 MG TABLET. PO SCH ×3 (08:14→19:02)
[2017-03-31] MEDS: OMEGA-3 FATTY ACIDS/FISH OIL 1,000 MG CAPSULE. PO SCH (08:14)
[2017-03-31 16:05] VITALS: BP 104/65
[2017-03-31] MEDS ORDERED: QUEtiapine 25 MG TABLET. PO SCH (17:00)
[2017-03-31] MEDS: MIRTAZAPINE 7.5 MG TABLET. PO SCH (19:27)
[2017-03-31] MEDS: DONEPEZIL HCL 10 MG TABLET PO SCH (19:27)
[2017-03-31] MEDS: traZODone 100 MG TABLET. PO SCH (19:27)
[2017-03-31] MEDS: DIVALPROEX ER 500 MG TAB.ER.24H PO SCH (19:28)
[2017-03-31] MEDS: MIRTAZAPINE 15 MG TABLET PO SCH (19:42)
--- NOTE | 2017-03-31 21:02 | PN ---
DATE: 03/30/2017 PSYCHIATRIC PROGRESS NOTE This late entry 03/30/2017 covers elements not covered in my initial note of 03/30/2017. SUBJECTIVE: Met with the patient in the evening of 03/30/2017. The patient's mood has been "up and down." Per nursing report, he has been labile at times, anxious, exit seeking, better after he received Seroquel. This improvement lasted about 2 hours. REVIEW OF SYSTEMS: No CV, , pulmonary, eye, ENT system symptoms on review. Reliability is poor. After met with me, he followed me round the unit as I met my rounds. MENTAL STATUS EXAM: Oriented to himself. Insight, judgment, recent and remote memory, attention, concentration, fund of knowledge poor, consistent with his diagnoses mentioned in my initial note. PLAN: Increase the Seroquel from 12.5 mg b.i.d. to 12.5 mg at 9:00 a.m. and 2 p.m. and 5 p.m. Maintain the rest of the psychotropics mentioned in my initial goal. Reviewed drug interactions. Risk/benefit ratio favors no further change. MAN Diana KEYSE MD DR: MARAL/quinton JOB#: [id number] / [id number]
--- NOTE | 2017-03-31 23:40 | PDOC ---
Exam Je Demential Exam: Je Note: Please also refer to the separate dictated note~for this date of service dictated separately.~Patient seen individually. Discussed the patient with Nursing staff reviewed the chart.~Reviewed interim history and current functioning. Reviewed vital signs,~Labs/ Radiology~and current medications noted below. Continue current treatment with the changes noted in the dictated addendum note Assessment: Vital Signs: Vital Signs Date Time Temp Pulse Resp B/P (MAP) Pulse Ox O2 Delivery O2 Flow Rate FiO2 03/31/17 16:05 98.5 69 16 104/65 (78) 94 03/29/17 16:15 Room Air I&O Intake and Output 04/01/17 07:00 Intake Total 180 ml Balance 180 ml Intake Oral 180 ml Current Medications: Meds: Current Medications Influenza Virus Vaccine Quadrival (Fluarix Quad [id number] Syringe) 0.5 ml ONCE ONCE VAX IM ; Start 03/26/17 at 09:00; Stop 03/26/17 at 19:21; Status DC Acetaminophen (Tylenol) 650 mg PRN Q6HRS PRN PO PAIN / TEMP; Start 03/26/17 at 03:00 Multi-Ingredient Ointment (Analgesic [place]) 1 mary PRN QID PRN TP MUSCLE PAIN; Start 03/26/17 at 03:00 Al Hydroxide/Mg Hydroxide (Mylanta Plus Xs) 15 ml PRN AFTMEALHC PRN PO DYSPEPSIA; Start 03/26/17 at 03:00 Magnesium Hydroxide (Milk Of Magnesia) 2,400 mg PRN QHS PRN PO CONSTIPATION; Start 03/26/17 at 03:00 Citalopram Hydrobromide (CeleXA) 10 mg DAILY PO Last administered on 10:37; Start 03/26/17 at 09:00; Stop 03/26/17 at 19:27; Status DC Donepezil HCl (Aricept) 10 mg QHS PO Last administered on 03/31/17 19:27; Start 03/26/17 at 21:00 Memantine (Namenda) 10 mg BID PO Last administered on 03/31/17 19:28; Start 03/26/17 at 09:00 Carbidopa/Levodopa (Sinemet Cr) 1 tab.sa BID PO Last administered on 03/31/17 19:27; Start 03/26/17 at 09:00 Levetiracetam (Keppra) 500 mg BID PO Last administered on 03/29/17 07:12; Start 03/26/17 at 09:00; Stop 03/29/17 at 17:44; Status DC Lisinopril (Prinivil) 20 mg DAILY PO Last administered on 03/31/17 08:13; Start 03/26/17 at 09:00 Hydrochlorothiazide (Microzide) 12.5 mg DAILY PO Last administered on 08:13; Start 03/26/17 at 09:00 Fish Oil (Fish Oil) 1,000 mg DAILY PO Last administered on 03/31/17 08:14; Start 03/26/17 at 09:00 Pantoprazole Sodium (Protonix) 40 mg DAILYAC PO Last administered on 03/31/17 08:13; Start 03/26/17 at 07:30 Olanzapine (ZyPREXA ZYDIS) 2.5 mg PRN Q2HR PRN PO PSYCHOSIS Last administered on 03/31/17 19:28; Start 03/26/17 at 06:45 Trazodone HCl (Desyrel) 50 mg QHS PO ; Start 03/26/17 at 21:00; Stop 03/26/17 at 21:00; Status DC Trazodone HCl (Desyrel) 50 mg PRN QHS PRN PO INSOMNIA; Start 03/26/17 at 06:45 ; Stop 03/26/17 at 19:27; Status DC Influenza Virus Vaccine Quadrival (Fluarix Quad [id number] Syringe) 0.5 ml ONCE ONCE VAX IM Last administered on 03/28/17 15:51; Start 03/28/17 at 09:00; Stop 03/28/17 at 09:01; Status DC Trazodone HCl (Desyrel) 100 mg PRN QHS PRN PO INSOMNIA; Start 03/26/17 at 19: 30; Stop 03/26/17 at 19:32; Status DC Trazodone HCl (Desyrel) 100 mg QHS PO ; Start 03/26/17 at 21:00; Stop at 21:00; Status DC Sertraline HCl (Zoloft) 50 mg DAILY PO Last administered on 03/31/17 08:13; Start 03/27/17 at 09:00 Mirtazapine (Remeron) 7.5 mg QHS PO Last administered on 03/30/17 19:38; Start 03/26/17 at 21:00; Stop 03/31/17 at 19:34; Status DC Trazodone HCl (Desyrel) 100 mg QHS PO Last administered on 03/31/17 19:27; Start 03/26/17 at 21:00 Trazodone HCl (Desyrel) 100 mg PRN QHS PRN PO Insomnia Last administered on 23:36; Start 03/26/17 at 19:30 Quetiapine Fumarate (SEROquel) 12.5 mg BID92 PO Last administered on 03/30/17 13:48; Start 03/28/17 at 09:00; Stop 03/31/17 at 02:54; Status DC Quetiapine Fumarate (SEROquel) 25 mg STK-MED ONCE .ROUTE ; Start 03/28/17 at 08: 02; Stop 03/28/17 at 08:03; Status DC Cyanocobalamin (Vitamin B-12) 1,000 mcg [id number] IM Last administered on 15:51; Start 03/28/17 at 14:00 Vitamin D (Vitamin D3) 50,000 unit WEEKLY PO Last administered on 03/28/17 19: 58; Start 03/28/17 at 14:00 Divalproex Sodium (Depakote Er) 500 mg QHS PO Last administered on 03/31/17 19 :28; Start 03/29/17 at 21:00 Quetiapine Fumarate (SEROquel) 12.5 mg DAILYWSUP PO ; Start 03/31/17 at 17:00; Stop 03/31/17 at 17:00; Status DC Quetiapine Fumarate (SEROquel) 12.5 mg TID@0900,1400,1700 PO Last administered on 03/31/17 19:02; Start 03/31/17 at 09:00 Mirtazapine (Remeron) 15 mg QHS PO Last administered on 03/31/17 19:42; Start 03/31/17 at 21:00 Active Scripts Active Reported Prilosec Otc (Omeprazole Magnesium) 20 Mg Tablet.dr 20 Mg PO DAILY [place] 3 1,000 Mg Softgel ([place]-3 Fatty Acids/Fish Oil) 1 Each Capsule 1,000 Mg PO DAILY Namenda (Memantine Hcl) 10 Mg Tablet 10 Mg PO BID Lisinopril 20 Mg Tablet 20 Mg PO DAILY Keppra (Levetiracetam) 500 Mg Tablet 500 Mg PO BID Hydrochlorothiazide Tablet (Hydrochlorothiazide) 12.5 Mg Tablet 12.5 Mg PO DAILY Aricept (Donepezil Hcl) 10 Mg Tablet 10 Mg PO QHS Celexa (Citalopram Hydrobromide) 10 Mg Tablet 10 Mg PO DAILY Sinemet Cr 50-200 Tablet (Carbidopa/Levodopa) 1 Each Tablet.er 1 Tab PO BID Diagnosis: Problems: (1) Alzheimer's dementia (2) Anxiety disorder (3) Impulse control disorder (4) Major depressive disorder, recurrent episode (5) Major neurocognitive disorder, due to vascular disease, with behavioral disturbance, mild (6) Parkinson's disease (7) Vascular dementia with behavioral disturbance OSMANY KEYES MD Mar 31, 2017 23:40
[2017-04-01 06:06] VITALS: BP 132/67
[2017-04-01] MEDS: PANTOPRAZOLE 40 MG TABLET. PO SCH (06:24)
[2017-04-01] MEDS: SERTRALINE 50 MG TABLET. PO SCH (06:24)
[2017-04-01] MEDS: QUEtiapine 25 MG TABLET. PO SCH ×3 (06:24→18:37)
[2017-04-01] MEDS: OMEGA-3 FATTY ACIDS/FISH OIL 1,000 MG CAPSULE. PO SCH (06:24)
[2017-04-01] MEDS: CARBIDOPA/LEVODOPA CR 50/200MG TABLET.SA PO SCH ×2 (06:24→18:37)
[2017-04-01] MEDS: LISINOPRIL 20 MG TABLET PO SCH (06:24)
[2017-04-01] MEDS: MEMANTINE 10 MG TABLET. PO SCH ×2 (06:24→18:38)
[2017-04-01] MEDS: hydroCHLOROthiazide 12.5 MG CAPSULE PO SCH (06:24)
[2017-04-01 07:29] LABS: BASO # 0.1 x10^3/uL (0.0-0.2); BASO % 1 % (0-3); EOS # 0.2 x10^3/uL (0.0-0.7); EOS % 3 % (0-3); HEMATOCRIT 47.1 % (39.0-53.0); LYMPH # 1.6 x10^3/uL (1.0-4.8); LYMPH % 23 % (24-48); MEAN CORPUSCULAR HEMOGLOBIN 32 pg (25-35); MEAN CORPUSCULAR HGB CONC 34 g/dL (31-37); MEAN CORPUSCULAR VOLUME 94 fL (79-100); MONO # 0.7 x10^3/uL (0.0-1.1); MONO % 9 % (0-9); NEUT # 4.6 x10^3uL (1.8-7.7); NEUT % 64 % (31-73); PLATELET COUNT 266 x10^3/uL (140-400); RED CELL DISTRIBUTION WIDTH 13.6 % (11.5-14.5); WHITE BLOOD COUNT 7.2 x10^3/uL (4.0-11.0)
[2017-04-01 07:44] LABS: MAGNESIUM 1.7 mg/dL (1.8-2.4)
[2017-04-01 07:47] LABS: VAL ACID 40 mcg/mL (50-100)
[2017-04-01 16:28] VITALS: BP 122/79
--- NOTE | 2017-04-01 17:54 | PDOC ---
Exam Je Demential Exam: Je Note: Please also refer to the separate dictated note~for this date of service dictated separately.~Patient seen individually. Discussed the patient with Nursing staff reviewed the chart.~Reviewed interim history and current functioning. Reviewed vital signs,~Labs/ Radiology~and current medications noted below. Continue current treatment with the changes noted in the dictated addendum note Assessment: Vital Signs: Vital Signs Date Time Temp Pulse Resp B/P (MAP) Pulse Ox O2 Delivery O2 Flow Rate FiO2 04/01/17 16:28 98.6 79 18 122/79 (93) 98 03/29/17 16:15 Room Air I&O Intake and Output 04/02/17 07:00 Intake Total 360 ml Balance 360 ml Intake Oral 360 ml Labs: Laboratory Tests Test 04/01/17 07:20 White Blood Count 7.2 x10^3/uL (4.0-11.0) Red Blood Count 5.00 x10^6/uL (4.30-5.70) Hemoglobin 16.0 g/dL (13.0-17.5) Hematocrit 47.1 % (39.0-53.0) Mean Corpuscular Volume 94 fL (79-100) Mean Corpuscular Hemoglobin 32 pg (25-35) Mean Corpuscular Hemoglobin Concent 34 g/dL (31-37) Red Cell Distribution Width 13.6 % (11.5-14.5) Platelet Count 266 x10^3/uL (140-400) Neutrophils (%) (Auto) 64 % (31-73) Lymphocytes (%) (Auto) 23 % (24-48) L Monocytes (%) (Auto) 9 % (0-9) Eosinophils (%) (Auto) 3 % (0-3) Basophils (%) (Auto) 1 % (0-3) Neutrophils # (Auto) 4.6 x10^3uL (1.8-7.7) Lymphocytes # (Auto) 1.6 x10^3/uL (1.0-4.8) Monocytes # (Auto) 0.7 x10^3/uL (0.0-1.1) Eosinophils # (Auto) 0.2 x10^3/uL (0.0-0.7) Basophils # (Auto) 0.1 x10^3/uL (0.0-0.2) Magnesium Level 1.7 mg/dL (1.8-2.4) L Valproic Acid Level 40 mcg/mL (50-100) L Valproic Acid Last Dose Date 03/31/17 Valproic Acid Last Dose Time 2100 Current Medications: Meds: Current Medications Influenza Virus Vaccine Quadrival (Fluarix Quad 3438-6353 Syringe) 0.5 ml ONCE ONCE VAX IM ; Start 03/26/17 at 09:00; Stop 03/26/17 at 19:21; Status DC Acetaminophen (Tylenol) 650 mg PRN Q6HRS PRN PO PAIN / TEMP; Start 03/26/17 at 03:00 Multi-Ingredient Ointment (Analgesic [place]) 1 mary PRN QID PRN TP MUSCLE PAIN; Start 03/26/17 at 03:00 Al Hydroxide/Mg Hydroxide (Mylanta Plus Xs) 15 ml PRN AFTMEALHC PRN PO DYSPEPSIA; Start 03/26/17 at 03:00 Magnesium Hydroxide (Milk Of Magnesia) 2,400 mg PRN QHS PRN PO CONSTIPATION; Start 03/26/17 at 03:00 Citalopram Hydrobromide (CeleXA) 10 mg DAILY PO Last administered on 10:37; Start 03/26/17 at 09:00; Stop 03/26/17 at 19:27; Status DC Donepezil HCl (Aricept) 10 mg QHS PO Last administered on 03/31/17 19:27; Start 03/26/17 at 21:00 Memantine (Namenda) 10 mg BID PO Last administered on 04/01/17 06:24; Start 03/26/17 at 09:00 Carbidopa/Levodopa (Sinemet Cr) 1 tab.sa BID PO Last administered on 04/01/17 06:24; Start 03/26/17 at 09:00 Levetiracetam (Keppra) 500 mg BID PO Last administered on 03/29/17 07:12; Start 03/26/17 at 09:00; Stop 03/29/17 at 17:44; Status DC Lisinopril (Prinivil) 20 mg DAILY PO Last administered on 04/01/17 06:24; Start 03/26/17 at 09:00 Hydrochlorothiazide (Microzide) 12.5 mg DAILY PO Last administered on 06:24; Start 03/26/17 at 09:00 Fish Oil (Fish Oil) 1,000 mg DAILY PO Last administered on 04/01/17 06:24; Start 03/26/17 at 09:00 Pantoprazole Sodium (Protonix) 40 mg DAILYAC PO Last administered on 04/01/17 06:24; Start 03/26/17 at 07:30 Olanzapine (ZyPREXA ZYDIS) 2.5 mg PRN Q2HR PRN PO PSYCHOSIS Last administered on 03/31/17 19:28; Start 03/26/17 at 06:45 Trazodone HCl (Desyrel) 50 mg QHS PO ; Start 03/26/17 at 21:00; Stop 03/26/17 at 21:00; Status DC Trazodone HCl (Desyrel) 50 mg PRN QHS PRN PO INSOMNIA; Start 03/26/17 at 06:45 ; Stop 03/26/17 at 19:27; Status DC Influenza Virus Vaccine Quadrival (Fluarix Quad [id number] Syringe) 0.5 ml ONCE ONCE VAX IM Last administered on 03/28/17 15:51; Start 03/28/17 at 09:00; Stop 03/28/17 at 09:01; Status DC Trazodone HCl (Desyrel) 100 mg PRN QHS PRN PO INSOMNIA; Start 03/26/17 at 19: 30; Stop 03/26/17 at 19:32; Status DC Trazodone HCl (Desyrel) 100 mg QHS PO ; Start 03/26/17 at 21:00; Stop at 21:00; Status DC Sertraline HCl (Zoloft) 50 mg DAILY PO Last administered on 04/01/17 06:24; Start 03/27/17 at 09:00 Mirtazapine (Remeron) 7.5 mg QHS PO Last administered on 03/30/17 19:38; Start 03/26/17 at 21:00; Stop 03/31/17 at 19:34; Status DC Trazodone HCl (Desyrel) 100 mg QHS PO Last administered on 03/31/17 19:27; Start 03/26/17 at 21:00 Trazodone HCl (Desyrel) 100 mg PRN QHS PRN PO Insomnia Last administered on 23:36; Start 03/26/17 at 19:30 Quetiapine Fumarate (SEROquel) 12.5 mg [id number] PO Last administered on 03/30/17 13:48; Start 03/28/17 at 09:00; Stop 03/31/17 at 02:54; Status DC Quetiapine Fumarate (SEROquel) 25 mg STK-MED ONCE .ROUTE ; Start 03/28/17 at 08: 02; Stop 03/28/17 at 08:03; Status DC Cyanocobalamin (Vitamin B-12) 1,000 mcg [id number] IM Last administered on 15:51; Start 03/28/17 at 14:00 Vitamin D (Vitamin D3) 50,000 unit WEEKLY PO Last administered on 03/28/17 19: 58; Start 03/28/17 at 14:00 Divalproex Sodium (Depakote Er) 500 mg QHS PO Last administered on 03/31/17 19 :28; Start 03/29/17 at 21:00 Quetiapine Fumarate (SEROquel) 12.5 mg DAILYWSUP PO ; Start 03/31/17 at 17:00; Stop 03/31/17 at 17:00; Status DC Quetiapine Fumarate (SEROquel) 12.5 mg TID@0900,1400,1700 PO Last administered on 04/01/17 14:11; Start 03/31/17 at 09:00 Mirtazapine (Remeron) 15 mg QHS PO Last administered on 03/31/17 19:42; Start 03/31/17 at 21:00 Active Scripts Active Reported Prilosec Otc (Omeprazole Magnesium) 20 Mg Tablet.dr 20 Mg PO DAILY [place] 3 1,000 Mg Softgel ([place]-3 Fatty Acids/Fish Oil) 1 Each Capsule 1,000 Mg PO DAILY Namenda (Memantine Hcl) 10 Mg Tablet 10 Mg PO BID Lisinopril 20 Mg Tablet 20 Mg PO DAILY Keppra (Levetiracetam) 500 Mg Tablet 500 Mg PO BID Hydrochlorothiazide Tablet (Hydrochlorothiazide) 12.5 Mg Tablet 12.5 Mg PO DAILY Aricept (Donepezil Hcl) 10 Mg Tablet 10 Mg PO QHS Celexa (Citalopram Hydrobromide) 10 Mg Tablet 10 Mg PO DAILY Sinemet Cr 50-200 Tablet (Carbidopa/Levodopa) 1 Each Tablet.er 1 Tab PO BID Diagnosis: Problems: (1) Vascular dementia with behavioral disturbance (2) Parkinson's disease (3) Major neurocognitive disorder, due to vascular disease, with behavioral disturbance, mild (4) Major depressive disorder, recurrent episode (5) Impulse control disorder (6) Anxiety disorder (7) Alzheimer's dementia OSMANY KEYES MD Apr 01, 2017 17:54
[2017-04-01] MEDS: DONEPEZIL HCL 10 MG TABLET PO SCH (18:37)
[2017-04-01] MEDS: DIVALPROEX ER 500 MG TAB.ER.24H PO SCH (18:38)
[2017-04-01] MEDS: traZODone 100 MG TABLET. PO SCH (18:39)
[2017-04-01] MEDS: MIRTAZAPINE 15 MG TABLET PO SCH (18:39)
--- NOTE | 2017-04-01 19:54 | PDOC ---
Exam Je Demential Exam: Je Note: Please also refer to the separate dictated note~for this date of service dictated separately.~Patient seen individually. Discussed the patient with Nursing staff reviewed the chart.~Reviewed interim history and current functioning. Reviewed vital signs,~Labs/ Radiology~and current medications noted below. Continue current treatment with the changes noted in the dictated addendum note Assessment: Vital Signs: Vital Signs Date Time Temp Pulse Resp B/P (MAP) Pulse Ox O2 Delivery O2 Flow Rate FiO2 04/01/17 16:28 98.6 79 18 122/79 (93) 98 03/29/17 16:15 Room Air I&O Intake and Output 04/02/17 07:00 Intake Total 600 ml Balance 600 ml Intake Oral 600 ml Labs: Laboratory Tests Test 04/01/17 07:20 White Blood Count 7.2 x10^3/uL (4.0-11.0) Red Blood Count 5.00 x10^6/uL (4.30-5.70) Hemoglobin 16.0 g/dL (13.0-17.5) Hematocrit 47.1 % (39.0-53.0) Mean Corpuscular Volume 94 fL (79-100) Mean Corpuscular Hemoglobin 32 pg (25-35) Mean Corpuscular Hemoglobin Concent 34 g/dL (31-37) Red Cell Distribution Width 13.6 % (11.5-14.5) Platelet Count 266 x10^3/uL (140-400) Neutrophils (%) (Auto) 64 % (31-73) Lymphocytes (%) (Auto) 23 % (24-48) L Monocytes (%) (Auto) 9 % (0-9) Eosinophils (%) (Auto) 3 % (0-3) Basophils (%) (Auto) 1 % (0-3) Neutrophils # (Auto) 4.6 x10^3uL (1.8-7.7) Lymphocytes # (Auto) 1.6 x10^3/uL (1.0-4.8) Monocytes # (Auto) 0.7 x10^3/uL (0.0-1.1) Eosinophils # (Auto) 0.2 x10^3/uL (0.0-0.7) Basophils # (Auto) 0.1 x10^3/uL (0.0-0.2) Magnesium Level 1.7 mg/dL (1.8-2.4) L Valproic Acid Level 40 mcg/mL (50-100) L Valproic Acid Last Dose Date 03/31/17 Valproic Acid Last Dose Time 2100 Current Medications: Meds: Current Medications Influenza Virus Vaccine Quadrival (Fluarix Quad [id number] Syringe) 0.5 ml ONCE ONCE VAX IM ; Start 03/26/17 at 09:00; Stop 03/26/17 at 19:21; Status DC Acetaminophen (Tylenol) 650 mg PRN Q6HRS PRN PO PAIN / TEMP; Start 03/26/17 at 03:00 Multi-Ingredient Ointment (Analgesic [place]) 1 mary PRN QID PRN TP MUSCLE PAIN; Start 03/26/17 at 03:00 Al Hydroxide/Mg Hydroxide (Mylanta Plus Xs) 15 ml PRN AFTMEALHC PRN PO DYSPEPSIA; Start 03/26/17 at 03:00 Magnesium Hydroxide (Milk Of Magnesia) 2,400 mg PRN QHS PRN PO CONSTIPATION; Start 03/26/17 at 03:00 Citalopram Hydrobromide (CeleXA) 10 mg DAILY PO Last administered on 10:37; Start 03/26/17 at 09:00; Stop 03/26/17 at 19:27; Status DC Donepezil HCl (Aricept) 10 mg QHS PO Last administered on 04/01/17 18:37; Start 03/26/17 at 21:00 Memantine (Namenda) 10 mg BID PO Last administered on 04/01/17 18:38; Start 03/26/17 at 09:00 Carbidopa/Levodopa (Sinemet Cr) 1 tab.sa BID PO Last administered on 04/01/17 18:37; Start 03/26/17 at 09:00 Levetiracetam (Keppra) 500 mg BID PO Last administered on 03/29/17 07:12; Start 03/26/17 at 09:00; Stop 03/29/17 at 17:44; Status DC Lisinopril (Prinivil) 20 mg DAILY PO Last administered on 04/01/17 06:24; Start 03/26/17 at 09:00 Hydrochlorothiazide (Microzide) 12.5 mg DAILY PO Last administered on 06:24; Start 03/26/17 at 09:00 Fish Oil (Fish Oil) 1,000 mg DAILY PO Last administered on 04/01/17 06:24; Start 03/26/17 at 09:00 Pantoprazole Sodium (Protonix) 40 mg DAILYAC PO Last administered on 04/01/17 06:24; Start 03/26/17 at 07:30 Olanzapine (ZyPREXA ZYDIS) 2.5 mg PRN Q2HR PRN PO PSYCHOSIS Last administered on 04/01/17 18:38; Start 03/26/17 at 06:45 Trazodone HCl (Desyrel) 50 mg QHS PO ; Start 03/26/17 at 21:00; Stop 03/26/17 at 21:00; Status DC Trazodone HCl (Desyrel) 50 mg PRN QHS PRN PO INSOMNIA; Start 03/26/17 at 06:45 ; Stop 03/26/17 at 19:27; Status DC Influenza Virus Vaccine Quadrival (Fluarix Quad [id number] Syringe) 0.5 ml ONCE ONCE VAX IM Last administered on 03/28/17 15:51; Start 03/28/17 at 09:00; Stop 03/28/17 at 09:01; Status DC Trazodone HCl (Desyrel) 100 mg PRN QHS PRN PO INSOMNIA; Start 03/26/17 at 19: 30; Stop 03/26/17 at 19:32; Status DC Trazodone HCl (Desyrel) 100 mg QHS PO ; Start 03/26/17 at 21:00; Stop at 21:00; Status DC Sertraline HCl (Zoloft) 50 mg DAILY PO Last administered on 04/01/17 06:24; Start 03/27/17 at 09:00 Mirtazapine (Remeron) 7.5 mg QHS PO Last administered on 03/30/17 19:38; Start 03/26/17 at 21:00; Stop 03/31/17 at 19:34; Status DC Trazodone HCl (Desyrel) 100 mg QHS PO Last administered on 04/01/17 18:39; Start 03/26/17 at 21:00 Trazodone HCl (Desyrel) 100 mg PRN QHS PRN PO Insomnia Last administered on 23:36; Start 03/26/17 at 19:30 Quetiapine Fumarate (SEROquel) 12.5 mg BID92 PO Last administered on 03/30/17 13:48; Start 03/28/17 at 09:00; Stop 03/31/17 at 02:54; Status DC Quetiapine Fumarate (SEROquel) 25 mg STK-MED ONCE .ROUTE ; Start 03/28/17 at 08: 02; Stop 03/28/17 at 08:03; Status DC Cyanocobalamin (Vitamin B-12) 1,000 mcg [id number] IM Last administered on 15:51; Start 03/28/17 at 14:00 Vitamin D (Vitamin D3) 50,000 unit WEEKLY PO Last administered on 03/28/17 19: 58; Start 03/28/17 at 14:00 Divalproex Sodium (Depakote Er) 500 mg QHS PO Last administered on 04/01/17 18 :38; Start 03/29/17 at 21:00 Quetiapine Fumarate (SEROquel) 12.5 mg DAILYWSUP PO ; Start 03/31/17 at 17:00; Stop 03/31/17 at 17:00; Status DC Quetiapine Fumarate (SEROquel) 12.5 mg TID@0900,1400,1700 PO Last administered on 04/01/17 18:37; Start 03/31/17 at 09:00 Mirtazapine (Remeron) 15 mg QHS PO Last administered on 04/01/17 18:39; Start 03/31/17 at 21:00 Active Scripts Active Reported Prilosec Otc (Omeprazole Magnesium) 20 Mg Tablet.dr 20 Mg PO DAILY [place] 3 1,000 Mg Softgel ([place]-3 Fatty Acids/Fish Oil) 1 Each Capsule 1,000 Mg PO DAILY Namenda (Memantine Hcl) 10 Mg Tablet 10 Mg PO BID Lisinopril 20 Mg Tablet 20 Mg PO DAILY Keppra (Levetiracetam) 500 Mg Tablet 500 Mg PO BID Hydrochlorothiazide Tablet (Hydrochlorothiazide) 12.5 Mg Tablet 12.5 Mg PO DAILY Aricept (Donepezil Hcl) 10 Mg Tablet 10 Mg PO QHS Celexa (Citalopram Hydrobromide) 10 Mg Tablet 10 Mg PO DAILY Sinemet Cr 50-200 Tablet (Carbidopa/Levodopa) 1 Each Tablet.er 1 Tab PO BID Diagnosis: Problems: (1) Alzheimer's dementia (2) Anxiety disorder (3) Impulse control disorder (4) Major depressive disorder, recurrent episode (5) Major neurocognitive disorder, due to vascular disease, with behavioral disturbance, mild (6) Parkinson's disease (7) Vascular dementia with behavioral disturbance OSMANY KEYES MD Apr 01, 2017 19:54
[2017-04-02] MEDS: traZODone 100 MG TABLET. PO PRN ×2 (01:36→21:41)
[2017-04-02 06:17] VITALS: BP 148/80
[2017-04-02] MEDS: hydroCHLOROthiazide 12.5 MG CAPSULE PO SCH (09:06)
[2017-04-02] MEDS: MEMANTINE 10 MG TABLET. PO SCH ×2 (09:07→19:36)
[2017-04-02] MEDS: OMEGA-3 FATTY ACIDS/FISH OIL 1,000 MG CAPSULE. PO SCH (09:07)
[2017-04-02] MEDS: SERTRALINE 50 MG TABLET. PO SCH (09:07)
[2017-04-02] MEDS: CARBIDOPA/LEVODOPA CR 50/200MG TABLET.SA PO SCH ×2 (09:08→19:36)
[2017-04-02] MEDS: LISINOPRIL 20 MG TABLET PO SCH (09:08)
[2017-04-02] MEDS: QUEtiapine 25 MG TABLET. PO SCH ×3 (09:08→17:49)
[2017-04-02] MEDS: PANTOPRAZOLE 40 MG TABLET. PO SCH (09:08)
--- NOTE | 2017-04-02 09:10 | PN ---
DATE: 03/31/2017 PSYCHIATRIC PROGRESS NOTE This is a late entry 03/31/2017, covers elements not covered in my initial note of 03/31/2017. SUBJECTIVE: I met with the patient the evening of 03/31/2017. The patient was up till 2:00 a.m., slept somewhat poorly. REVIEW OF SYSTEMS: No CV, , pulmonary, eye, ENT system symptoms on review. He remains confused, intermittently agitated. MENTAL STATUS EXAM: Oriented to himself. Insights, judgment, recent and remote memory, attention, concentration, fund of knowledge poor, consistent with his diagnoses mentioned in my initial note. PLAN: Increase Remeron from 7.5 mg at bedtime to 15 mg at bedtime. Maintain the rest unchanged. Review drug interactions. Risks/benefit ratio favors no further change. MAN Diana KEYES MD DR: MARAL/quinton JOB#: [id number] / [id number]
[2017-04-02 15:58] VITALS: BP 140/71
[2017-04-02] MEDS: traZODone 100 MG TABLET. PO SCH (19:35)
[2017-04-02] MEDS: MELATONIN 3 MG TABLET PO SCH (19:35)
[2017-04-02] MEDS: DIVALPROEX ER 500 MG TAB.ER.24H PO SCH (19:35)
[2017-04-02] MEDS: DONEPEZIL HCL 10 MG TABLET PO SCH (19:35)
[2017-04-02] MEDS: MIRTAZAPINE 15 MG TABLET PO SCH (19:35)
--- NOTE | 2017-04-02 19:41 | PDOC ---
Exam Je Demential Exam: Je Note: Please also refer to the separate dictated note~for this date of service dictated separately.~Patient seen individually. Discussed the patient with Nursing staff reviewed the chart.~Reviewed interim history and current functioning. Reviewed vital signs,~Labs/ Radiology~and current medications noted below. Continue current treatment with the changes noted in the dictated addendum note Assessment: Vital Signs: Vital Signs Date Time Temp Pulse Resp B/P (MAP) Pulse Ox O2 Delivery O2 Flow Rate FiO2 04/02/17 15:58 98.3 75 16 140/71 (94) 96 03/29/17 16:15 Room Air I&O Intake and Output 04/03/17 07:00 Intake Total 240 ml Balance 240 ml Intake Oral 240 ml Current Medications: Meds: Current Medications Influenza Virus Vaccine Quadrival (Fluarix Quad [id number] Syringe) 0.5 ml ONCE ONCE VAX IM ; Start 03/26/17 at 09:00; Stop 03/26/17 at 19:21; Status DC Acetaminophen (Tylenol) 650 mg PRN Q6HRS PRN PO PAIN / TEMP; Start 03/26/17 at 03:00 Multi-Ingredient Ointment (Analgesic [place]) 1 mary PRN QID PRN TP MUSCLE PAIN; Start 03/26/17 at 03:00 Al Hydroxide/Mg Hydroxide (Mylanta Plus Xs) 15 ml PRN AFTMEALHC PRN PO DYSPEPSIA; Start 03/26/17 at 03:00 Magnesium Hydroxide (Milk Of Magnesia) 2,400 mg PRN QHS PRN PO CONSTIPATION; Start 03/26/17 at 03:00 Citalopram Hydrobromide (CeleXA) 10 mg DAILY PO Last administered on 10:37; Start 03/26/17 at 09:00; Stop 03/26/17 at 19:27; Status DC Donepezil HCl (Aricept) 10 mg QHS PO Last administered on 04/02/17 19:35; Start 03/26/17 at 21:00 Memantine (Namenda) 10 mg BID PO Last administered on 04/02/17 19:36; Start 03/26/17 at 09:00 Carbidopa/Levodopa (Sinemet Cr) 1 tab.sa BID PO Last administered on 04/02/17 19:36; Start 03/26/17 at 09:00 Levetiracetam (Keppra) 500 mg BID PO Last administered on 03/29/17 07:12; Start 03/26/17 at 09:00; Stop 03/29/17 at 17:44; Status DC Lisinopril (Prinivil) 20 mg DAILY PO Last administered on 04/02/17 09:08; Start 03/26/17 at 09:00 Hydrochlorothiazide (Microzide) 12.5 mg DAILY PO Last administered on 09:06; Start 03/26/17 at 09:00 Fish Oil (Fish Oil) 1,000 mg DAILY PO Last administered on 04/02/17 09:07; Start 03/26/17 at 09:00 Pantoprazole Sodium (Protonix) 40 mg DAILYAC PO Last administered on 04/02/17 09:08; Start 03/26/17 at 07:30 Olanzapine (ZyPREXA ZYDIS) 2.5 mg PRN Q2HR PRN PO PSYCHOSIS Last administered on 04/01/17 18:38; Start 03/26/17 at 06:45 Trazodone HCl (Desyrel) 50 mg QHS PO ; Start 03/26/17 at 21:00; Stop 03/26/17 at 21:00; Status DC Trazodone HCl (Desyrel) 50 mg PRN QHS PRN PO INSOMNIA; Start 03/26/17 at 06:45 ; Stop 03/26/17 at 19:27; Status DC Influenza Virus Vaccine Quadrival (Fluarix Quad [id number] Syringe) 0.5 ml ONCE ONCE VAX IM Last administered on 03/28/17 15:51; Start 03/28/17 at 09:00; Stop 03/28/17 at 09:01; Status DC Trazodone HCl (Desyrel) 100 mg PRN QHS PRN PO INSOMNIA; Start 03/26/17 at 19: 30; Stop 03/26/17 at 19:32; Status DC Trazodone HCl (Desyrel) 100 mg QHS PO ; Start 03/26/17 at 21:00; Stop at 21:00; Status DC Sertraline HCl (Zoloft) 50 mg DAILY PO Last administered on 04/02/17 09:07; Start 03/27/17 at 09:00 Mirtazapine (Remeron) 7.5 mg QHS PO Last administered on 03/30/17 19:38; Start 03/26/17 at 21:00; Stop 03/31/17 at 19:34; Status DC Trazodone HCl (Desyrel) 100 mg QHS PO Last administered on 04/02/17 19:35; Start 03/26/17 at 21:00 Trazodone HCl (Desyrel) 100 mg PRN QHS PRN PO Insomnia Last administered on 01:36; Start 03/26/17 at 19:30 Quetiapine Fumarate (SEROquel) 12.5 mg [id number] PO Last administered on 03/30/17 13:48; Start 03/28/17 at 09:00; Stop 03/31/17 at 02:54; Status DC Quetiapine Fumarate (SEROquel) 25 mg STK-MED ONCE .ROUTE ; Start 03/28/17 at 08: 02; Stop 03/28/17 at 08:03; Status DC Cyanocobalamin (Vitamin B-12) 1,000 mcg [id number] IM Last administered on 15:51; Start 03/28/17 at 14:00 Vitamin D (Vitamin D3) 50,000 unit WEEKLY PO Last administered on 03/28/17 19: 58; Start 03/28/17 at 14:00 Divalproex Sodium (Depakote Er) 500 mg QHS PO Last administered on 04/02/17 19 :35; Start 03/29/17 at 21:00 Quetiapine Fumarate (SEROquel) 12.5 mg DAILYWSUP PO ; Start 03/31/17 at 17:00; Stop 03/31/17 at 17:00; Status DC Quetiapine Fumarate (SEROquel) 12.5 mg TID@0900,1400,1700 PO Last administered on 04/02/17 17:49; Start 03/31/17 at 09:00 Mirtazapine (Remeron) 15 mg QHS PO Last administered on 04/02/17 19:35; Start 03/31/17 at 21:00 Melatonin 3 mg QHS PO Last administered on 04/02/17t 19:35; Start 04/02/17 at 21:00 Active Scripts Active Reported Prilosec Otc (Omeprazole Magnesium) 20 Mg Tablet.dr 20 Mg PO DAILY [place] 3 1,000 Mg Softgel ([place]-3 Fatty Acids/Fish Oil) 1 Each Capsule 1,000 Mg PO DAILY Namenda (Memantine Hcl) 10 Mg Tablet 10 Mg PO BID Lisinopril 20 Mg Tablet 20 Mg PO DAILY Keppra (Levetiracetam) 500 Mg Tablet 500 Mg PO BID Hydrochlorothiazide Tablet (Hydrochlorothiazide) 12.5 Mg Tablet 12.5 Mg PO DAILY Aricept (Donepezil Hcl) 10 Mg Tablet 10 Mg PO QHS Celexa (Citalopram Hydrobromide) 10 Mg Tablet 10 Mg PO DAILY Sinemet Cr 50-200 Tablet (Carbidopa/Levodopa) 1 Each Tablet.er 1 Tab PO BID Diagnosis: Problems: (1) Alzheimer's dementia (2) Anxiety disorder (3) Impulse control disorder (4) Major depressive disorder, recurrent episode (5) Major neurocognitive disorder, due to vascular disease, with behavioral disturbance, mild (6) Parkinson's disease (7) Vascular dementia with behavioral disturbance OSMANY KEYES MD Apr 02, 2017 19:41
[2017-04-02] MEDS: CARBIDOPA/LEVODOPA 25/100MG TABLET PO SCH (19:54)
[2017-04-02] MEDS: DIVALPROEX 125 MG CAP.SPRINK PO SCH (19:54)
--- NOTE | 2017-04-03 00:45 | PN ---
DATE: 04/01/2017 PSYCHIATRIC PROGRESS NOTE This is a late entry for 04/01/2017, covers elements not covered in my initial note of 04/01/2017. SUBJECTIVE: I met with the patient the evening of 04/01/2017. The patient slept 6-1/2 hours previous evening, more anxious, having some auditory hallucinations, grabbing at things that are not there with questionable visual hallucinations. REVIEW OF SYSTEMS: No CV, , pulmonary, eye, ENT system symptoms on review. Reliability poor. MENTAL STATUS EXAM: Oriented to himself. Insight, judgment, recent and remote memory, attention, concentration, fund of knowledge poor, consistent with his diagnosis mentioned in my initial note. Valproic acid level is subtherapeutic at 40. Seroquel has been increased to 3 times a day. PLAN: Continue current psychotropics. Reviewed drug interactions. Risk/benefit ratio favors no further change depending on his progress. We may increase the Depakote. OSMANY KEYES MD DR: MARAL/quinton JOB#: [id number] / [id number]
[2017-04-03 06:34] VITALS: BP 149/83
[2017-04-03] MEDS: CARBIDOPA/LEVODOPA 25/100MG TABLET PO SCH ×2 (07:48→19:58)
[2017-04-03] MEDS: MEMANTINE 10 MG TABLET. PO SCH ×2 (07:48→19:58)
[2017-04-03] MEDS: QUEtiapine 25 MG TABLET. PO SCH ×3 (07:48→16:40)
[2017-04-03] MEDS: SERTRALINE 50 MG TABLET. PO SCH (07:49)
[2017-04-03] MEDS: LISINOPRIL 20 MG TABLET PO SCH (07:49)
[2017-04-03] MEDS: hydroCHLOROthiazide 12.5 MG CAPSULE PO SCH (07:49)
[2017-04-03] MEDS: OMEGA-3 FATTY ACIDS/FISH OIL 1,000 MG CAPSULE. PO SCH (07:49)
[2017-04-03] MEDS: PANTOPRAZOLE 40 MG TABLET. PO SCH (07:49)
[2017-04-03 16:28] VITALS: BP 119/65
[2017-04-03] MEDS: traZODone 100 MG TABLET. PO SCH (19:58)
[2017-04-03] MEDS: MELATONIN 3 MG TABLET PO SCH (19:58)
[2017-04-03] MEDS: DONEPEZIL HCL 10 MG TABLET PO SCH (19:58)
[2017-04-03] MEDS: DIVALPROEX 125 MG CAP.SPRINK PO SCH (19:58)
[2017-04-03] MEDS: MIRTAZAPINE 15 MG TABLET PO SCH (19:58)
[2017-04-03] MEDS: MAGNESIUM OXIDE 400 MG TABLET PO SCH (20:00)
--- NOTE | 2017-04-03 21:39 | PDOC ---
Exam Je Demential Exam: Je Note: Please also refer to the separate dictated note~for this date of service dictated separately.~Patient seen individually. Discussed the patient with Nursing staff reviewed the chart.~Reviewed interim history and current functioning. Reviewed vital signs,~Labs/ Radiology~and current medications noted below. Continue current treatment with the changes noted in the dictated addendum note Assessment: Vital Signs: Vital Signs Date Time Temp Pulse Resp B/P (MAP) Pulse Ox O2 Delivery O2 Flow Rate FiO2 04/03/17 16:28 97.7 73 18 119/65 (83) 96 03/29/17 16:15 Room Air I&O Intake and Output 04/04/17 07:00 Intake Total 600 ml Balance 600 ml Intake Oral 600 ml Current Medications: Meds: Current Medications Influenza Virus Vaccine Quadrival (Fluarix Quad 9143-8171 Syringe) 0.5 ml ONCE ONCE VAX IM ; Start 03/26/17 at 09:00; Stop 03/26/17 at 19:21; Status DC Acetaminophen (Tylenol) 650 mg PRN Q6HRS PRN PO PAIN / TEMP; Start 03/26/17 at 03:00 Multi-Ingredient Ointment (Analgesic [place]) 1 mary PRN QID PRN TP MUSCLE PAIN; Start 03/26/17 at 03:00 Al Hydroxide/Mg Hydroxide (Mylanta Plus Xs) 15 ml PRN AFTMEALHC PRN PO DYSPEPSIA; Start 03/26/17 at 03:00 Magnesium Hydroxide (Milk Of Magnesia) 2,400 mg PRN QHS PRN PO CONSTIPATION; Start 03/26/17 at 03:00 Citalopram Hydrobromide (CeleXA) 10 mg DAILY PO Last administered on 10:37; Start 03/26/17 at 09:00; Stop 03/26/17 at 19:27; Status DC Donepezil HCl (Aricept) 10 mg QHS PO Last administered on 04/03/17 19:58; Start 03/26/17 at 21:00 Memantine (Namenda) 10 mg BID PO Last administered on 04/03/17 19:58; Start 03/26/17 at 09:00 Carbidopa/Levodopa (Sinemet Cr) 1 tab.sa BID PO Last administered on 11/6/17at 09:08; Start 03/26/17 at 09:00; Stop 04/02/17 at 19:48; Status DC Levetiracetam (Keppra) 500 mg BID PO Last administered on 03/29/17 07:12; Start 03/26/17 at 09:00; Stop 03/29/17 at 17:44; Status DC Lisinopril (Prinivil) 20 mg DAILY PO Last administered on 04/03/17 07:49; Start 03/26/17 at 09:00 Hydrochlorothiazide (Microzide) 12.5 mg DAILY PO Last administered on 07:49; Start 03/26/17 at 09:00 Fish Oil (Fish Oil) 1,000 mg DAILY PO Last administered on 04/03/17 07:49; Start 03/26/17 at 09:00 Pantoprazole Sodium (Protonix) 40 mg DAILYAC PO Last administered on 04/03/17 07:49; Start 03/26/17 at 07:30 Olanzapine (ZyPREXA ZYDIS) 2.5 mg PRN Q2HR PRN PO PSYCHOSIS Last administered on 04/01/17 18:38; Start 03/26/17 at 06:45 Trazodone HCl (Desyrel) 50 mg QHS PO ; Start 03/26/17 at 21:00; Stop 03/26/17 at 21:00; Status DC Trazodone HCl (Desyrel) 50 mg PRN QHS PRN PO INSOMNIA; Start 03/26/17 at 06:45 ; Stop 03/26/17 at 19:27; Status DC Influenza Virus Vaccine Quadrival (Fluarix Quad [id number] Syringe) 0.5 ml ONCE ONCE VAX IM Last administered on 03/28/17 15:51; Start 03/28/17 at 09:00; Stop 03/28/17 at 09:01; Status DC Trazodone HCl (Desyrel) 100 mg PRN QHS PRN PO INSOMNIA; Start 03/26/17 at 19: 30; Stop 03/26/17 at 19:32; Status DC Trazodone HCl (Desyrel) 100 mg QHS PO ; Start 03/26/17 at 21:00; Stop at 21:00; Status DC Sertraline HCl (Zoloft) 50 mg DAILY PO Last administered on 04/03/17 07:49; Start 03/27/17 at 09:00 Mirtazapine (Remeron) 7.5 mg QHS PO Last administered on 03/30/17 19:38; Start 03/26/17 at 21:00; Stop 03/31/17 at 19:34; Status DC Trazodone HCl (Desyrel) 100 mg QHS PO Last administered on 04/03/17 19:58; Start 03/26/17 at 21:00 Trazodone HCl (Desyrel) 100 mg PRN QHS PRN PO Insomnia Last administered on 21:41; Start 03/26/17 at 19:30 Quetiapine Fumarate (SEROquel) 12.5 mg BID92 PO Last administered on 03/30/17 13:48; Start 03/28/17 at 09:00; Stop 03/31/17 at 02:54; Status DC Quetiapine Fumarate (SEROquel) 25 mg STK-MED ONCE .ROUTE ; Start 03/28/17 at 08: 02; Stop 03/28/17 at 08:03; Status DC Cyanocobalamin (Vitamin B-12) 1,000 mcg [id number] IM Last administered on 15:51; Start 03/28/17 at 14:00 Vitamin D (Vitamin D3) 50,000 unit WEEKLY PO Last administered on 03/28/17 19: 58; Start 03/28/17 at 14:00 Divalproex Sodium (Depakote Er) 500 mg QHS PO Last administered on 04/01/17 18 :38; Start 03/29/17 at 21:00; Stop 04/02/17 at 19:42; Status DC Quetiapine Fumarate (SEROquel) 12.5 mg DAILYWSUP PO ; Start 03/31/17 at 17:00; Stop 03/31/17 at 17:00; Status DC Quetiapine Fumarate (SEROquel) 12.5 mg TID@0900,1400,1700 PO Last administered on 04/03/17 16:40; Start 03/31/17 at 09:00 Mirtazapine (Remeron) 15 mg QHS PO Last administered on 04/03/17 19:58; Start 03/31/17 at 21:00 Melatonin 3 mg QHS PO Last administered on 04/03/17 19:58; Start 04/02/17 at 21:00 Divalproex Sodium (Depakote Sprinkles) 500 mg HS PO Last administered on 19:58; Start 04/02/17 at 21:00 Carbidopa/Levodopa (Sinemet 25/100) 2 tab BID PO Last administered on 19:58; Start 04/02/17 at 21:00 Magnesium Oxide (Magnesium Oxide) 400 mg BID PO Last administered on 04/03/17 20:00; Start 04/03/17 at 21:00 Active Scripts Active Reported Prilosec Otc (Omeprazole Magnesium) 20 Mg Tablet.dr 20 Mg PO DAILY [place] 3 1,000 Mg Softgel ([place]-3 Fatty Acids/Fish Oil) 1 Each Capsule 1,000 Mg PO DAILY Namenda (Memantine Hcl) 10 Mg Tablet 10 Mg PO BID Lisinopril 20 Mg Tablet 20 Mg PO DAILY Keppra (Levetiracetam) 500 Mg Tablet 500 Mg PO BID Hydrochlorothiazide Tablet (Hydrochlorothiazide) 12.5 Mg Tablet 12.5 Mg PO DAILY Aricept (Donepezil Hcl) 10 Mg Tablet 10 Mg PO QHS Celexa (Citalopram Hydrobromide) 10 Mg Tablet 10 Mg PO DAILY Sinemet Cr 50-200 Tablet (Carbidopa/Levodopa) 1 Each Tablet.er 1 Tab PO BID Diagnosis: Problems: (1) Alzheimer's dementia (2) Anxiety disorder (3) Impulse control disorder (4) Major depressive disorder, recurrent episode (5) Major neurocognitive disorder, due to vascular disease, with behavioral disturbance, mild (6) Parkinson's disease (7) Vascular dementia with behavioral disturbance OSMANY KEYES MD Apr 03, 2017 21:39
[2017-04-04 06:07] VITALS: BP 161/90
--- NOTE | 2017-04-04 07:31 | PN ---
DATE: 04/02/2017 PSYCHIATRIC PROGRESS NOTE This late entry 04/02/2017 covers elements, not covered in my initial note of 04/02/2017. I met with the patient in the evening of 04/02/2017. The patient has appeared more confused, somewhat delirious, grabbing at things in the air, as I attempted to feed him supper, having trouble chewing his medications, slept just 2-1/4 hours previous night and we will start him on melatonin 3 mg at bedtime and check a UA to make sure he does not have a UTI. REVIEW OF SYSTEMS: No CV, , pulmonary, eye, ENT system symptoms on review. Reliability poor. MENTAL STATUS EXAM: Oriented to himself. Insight, judgment, recent and remote memory, attention, concentration, fund of knowledge poor, consistent with his diagnosis mentioned in my initial note. PLAN: Continue current psychotropics. Reviewed drug interactions. Risk/benefit ratio favors no further change. OSMANY KEYES MD DR: MARAL/quinton JOB#: [id number] / [id number]
[2017-04-04] MEDS: LISINOPRIL 20 MG TABLET PO SCH (08:27)
[2017-04-04] MEDS: PANTOPRAZOLE 40 MG TABLET. PO SCH (08:29)
[2017-04-04] MEDS: QUEtiapine 25 MG TABLET. PO SCH ×3 (08:29→16:16)
[2017-04-04] MEDS: hydroCHLOROthiazide 12.5 MG CAPSULE PO SCH (08:29)
[2017-04-04] MEDS: MEMANTINE 10 MG TABLET. PO SCH ×2 (08:29→19:58)
[2017-04-04] MEDS: SERTRALINE 50 MG TABLET. PO SCH (08:30)
[2017-04-04] MEDS: OMEGA-3 FATTY ACIDS/FISH OIL 1,000 MG CAPSULE. PO SCH (08:30)
[2017-04-04] MEDS: CARBIDOPA/LEVODOPA 25/100MG TABLET PO SCH ×2 (08:30→19:58)
[2017-04-04] MEDS: MAGNESIUM OXIDE 400 MG TABLET PO SCH ×2 (08:31→19:58)
[2017-04-04] MEDS: CHOLECALCIFEROL (VITAMIN D3) 50,000 UNIT CAPSULE PO SCH (08:33)
[2017-04-04 09:51] LABS: BACTERIA,URINE 0 /HPF (0-FEW); BILIRUBIN,URINE NEG (NEG); CLARITY,URINE HAZY; COLOR,URINE AMBER; GLUCOSE,URINE NEG (NEG); NITRITE,URINE NEG (NEG); RBC,URINE RARE /HPF (0-2); SPERM,URINE PRESENT /HPF; SQUAMOUS EPITHELIAL CELL,UR OCC /LPF; UROBILINOGEN,URINE 0.2 mg/dL (0.2 mg/dL); WBC,URINE OCC /HPF (0-4)
[2017-04-04 16:29] VITALS: BP 136/80
[2017-04-04] MEDS: DIVALPROEX 125 MG CAP.SPRINK PO SCH (19:58)
[2017-04-04] MEDS: MELATONIN 3 MG TABLET PO SCH (19:58)
[2017-04-04] MEDS: DONEPEZIL HCL 10 MG TABLET PO SCH (19:58)
[2017-04-04] MEDS: MIRTAZAPINE 15 MG TABLET PO SCH (19:58)
[2017-04-04] MEDS: traZODone 100 MG TABLET. PO SCH (19:58)
--- NOTE | 2017-04-04 21:35 | PN ---
DATE: 03/28/2017 SUBJECTIVE: The patient was seen today in a followup visit. He denied any new medical neurological complaints. The nursing staff stated the patient has been more cooperative and quite today and he follows commands, and he eats and sleeps well. The patient denies any new medical complaints. OBJECTIVE: GENERAL: Well-developed, well-nourished white male, not in acute distress. VITAL SIGNS: Blood pressure 102/66, respiratory rate 18, pulse is 73, temperature 97.4, oxygen saturation 93%. HEENT: Normocephalic, atraumatic, otherwise unremarkable. NECK: Supple. Negative for carotid bruit, lymphadenopathy or thyromegaly. LUNGS: Clear to A and P. CARDIOVASCULAR: Regular rate and rhythm, normal S1, S2. ABDOMEN: Soft. Bowel sounds positive. EXTREMITIES: Negative for cyanosis, clubbing or pitting edema. NEUROLOGIC: The patient is alert and oriented to himself. His speech is fluent. There is no language dysfunction. Memory, judgment and abstract thinking are poor. The patient denies hallucination or delusion. Cranial nerves are intact. No focal motor or sensory deficit. The patient continues to have mild tremor of the hands at rest. The tone is slightly increased in the lower extremity. Sensory examination revealed normal pinprick and light touch senses throughout. Deep tendon reflexes were symmetric and active with absent Achilles responses. Gait: The patient walked this afternoon without using a cane or a walker. IMPRESSION: 1. Parkinson disease -- stable. 2. Seizure disorder of unknown etiology. 3. Multiple psychiatric problems include intermittent behavior disturbances, delusion and confusion. 4. Dementia of Alzheimer type. RECOMMENDATIONS: 1. Will continue with current management and home medications. 2. Will try to obtain more information about seizure disorder from his family. M Gomez STUBBS MD DR: TANISHA/quinton JOB#: [id number] / [id number]
--- NOTE | 2017-04-04 21:39 | PDOC ---
Exam Je Demential Exam: Je Note: Please also refer to the separate dictated note~for this date of service dictated separately.~Patient seen individually. Discussed the patient with Nursing staff reviewed the chart.~Reviewed interim history and current functioning. Reviewed vital signs,~Labs/ Radiology~and current medications noted below. Continue current treatment with the changes noted in the dictated addendum note Assessment: Vital Signs: Vital Signs Date Time Temp Pulse Resp B/P (MAP) Pulse Ox O2 Delivery O2 Flow Rate FiO2 04/04/17 16:29 97.9 70 18 136/80 (98) 98 Room Air I&O Intake and Output 04/05/17 07:00 Intake Total 960 ml Balance 960 ml Intake Oral 960 ml # Bowel Movements 1 Labs: Laboratory Tests Test 04/04/17 09:20 Urine Collection Type Unknown Urine Color Beti Urine Clarity Hazy Urine pH 6.0 Urine Specific [place] 1.020 Urine Protein Neg (NEG-TRACE) Urine Glucose (UA) Neg mg/dL (NEG) Urine Ketones (Stick) 40 mg/dL (NEG) Urine Blood Neg (NEG) Urine Nitrite Neg (NEG) Urine Bilirubin Neg (NEG) Urine Urobilinogen Dipstick 0.2 mg/dL (0.2 mg/dL) Urine Leukocyte Esterase Neg (NEG) Urine RBC Rare /HPF (0-2) Urine WBC Occ /HPF (0-4) Urine Squamous Epithelial Cells Occ /LPF Urine Bacteria 0 /HPF (0-FEW) Urine Mucus Mod /LPF Urine Sperm Present /HPF Current Medications: Meds: Current Medications Influenza Virus Vaccine Quadrival (Fluarix Quad [id number] Syringe) 0.5 ml ONCE ONCE VAX IM ; Start 03/26/17 at 09:00; Stop 03/26/17 at 19:21; Status DC Acetaminophen (Tylenol) 650 mg PRN Q6HRS PRN PO PAIN / TEMP; Start 03/26/17 at 03:00 Multi-Ingredient Ointment (Analgesic [place]) 1 mary PRN QID PRN TP MUSCLE PAIN; Start 03/26/17 at 03:00 Al Hydroxide/Mg Hydroxide (Mylanta Plus Xs) 15 ml PRN AFTMEALHC PRN PO DYSPEPSIA; Start 03/26/17 at 03:00 Magnesium Hydroxide (Milk Of Magnesia) 2,400 mg PRN QHS PRN PO CONSTIPATION; Start 03/26/17 at 03:00 Citalopram Hydrobromide (CeleXA) 10 mg DAILY PO Last administered on 10:37; Start 03/26/17 at 09:00; Stop 03/26/17 at 19:27; Status DC Donepezil HCl (Aricept) 10 mg QHS PO Last administered on 04/04/17 19:58; Start 03/26/17 at 21:00 Memantine (Namenda) 10 mg BID PO Last administered on 04/04/17 19:58; Start 03/26/17 at 09:00 Carbidopa/Levodopa (Sinemet Cr) 1 tab.sa BID PO Last administered on 04/02/17 09:08; Start 03/26/17 at 09:00; Stop 04/02/17 at 19:48; Status DC Levetiracetam (Keppra) 500 mg BID PO Last administered on 03/29/17 07:12; Start 03/26/17 at 09:00; Stop 03/29/17 at 17:44; Status DC Lisinopril (Prinivil) 20 mg DAILY PO Last administered on 04/04/17 08:27; Start 03/26/17 at 09:00 Hydrochlorothiazide (Microzide) 12.5 mg DAILY PO Last administered on 08:29; Start 03/26/17 at 09:00 Fish Oil (Fish Oil) 1,000 mg DAILY PO Last administered on 04/04/17 08:30; Start 03/26/17 at 09:00 Pantoprazole Sodium (Protonix) 40 mg DAILYAC PO Last administered on 04/04/17 08:29; Start 03/26/17 at 07:30 Olanzapine (ZyPREXA ZYDIS) 2.5 mg PRN Q2HR PRN PO PSYCHOSIS Last administered on 04/01/17 18:38; Start 03/26/17 at 06:45 Trazodone HCl (Desyrel) 50 mg QHS PO ; Start 03/26/17 at 21:00; Stop 03/26/17 at 21:00; Status DC Trazodone HCl (Desyrel) 50 mg PRN QHS PRN PO INSOMNIA; Start 03/26/17 at 06:45 ; Stop 03/26/17 at 19:27; Status DC Influenza Virus Vaccine Quadrival (Fluarix Quad [id number] Syringe) 0.5 ml ONCE ONCE VAX IM Last administered on 03/28/17 15:51; Start 03/28/17 at 09:00; Stop 03/28/17 at 09:01; Status DC Trazodone HCl (Desyrel) 100 mg PRN QHS PRN PO INSOMNIA; Start 03/26/17 at 19: 30; Stop 03/26/17 at 19:32; Status DC Trazodone HCl (Desyrel) 100 mg QHS PO ; Start 03/26/17 at 21:00; Stop at 21:00; Status DC Sertraline HCl (Zoloft) 50 mg DAILY PO Last administered on 04/04/17 08:30; Start 03/27/17 at 09:00 Mirtazapine (Remeron) 7.5 mg QHS PO Last administered on 03/30/17 19:38; Start 03/26/17 at 21:00; Stop 03/31/17 at 19:34; Status DC Trazodone HCl (Desyrel) 100 mg QHS PO Last administered on 04/04/17 19:58; Start 03/26/17 at 21:00 Trazodone HCl (Desyrel) 100 mg PRN QHS PRN PO Insomnia Last administered on 21:41; Start 03/26/17 at 19:30 Quetiapine Fumarate (SEROquel) 12.5 mg [id number] PO Last administered on 03/30/17 13:48; Start 03/28/17 at 09:00; Stop 03/31/17 at 02:54; Status DC Quetiapine Fumarate (SEROquel) 25 mg STK-MED ONCE .ROUTE ; Start 03/28/17 at 08: 02; Stop 03/28/17 at 08:03; Status DC Cyanocobalamin (Vitamin B-12) 1,000 mcg [id number] IM Last administered on 15:51; Start 03/28/17 at 14:00 Vitamin D (Vitamin D3) 50,000 unit WEEKLY PO Last administered on 04/04/17 08: 33; Start 03/28/17 at 14:00 Divalproex Sodium (Depakote Er) 500 mg QHS PO Last administered on 04/01/17 18 :38; Start 03/29/17 at 21:00; Stop 04/02/17 at 19:42; Status DC Quetiapine Fumarate (SEROquel) 12.5 mg DAILYWSUP PO ; Start 03/31/17 at 17:00; Stop 03/31/17 at 17:00; Status DC Quetiapine Fumarate (SEROquel) 12.5 mg TID@0900,1400,1700 PO Last administered on 04/04/17 16:16; Start 03/31/17 at 09:00 Mirtazapine (Remeron) 15 mg QHS PO Last administered on 04/04/17 19:58; Start 03/31/17 at 21:00 Melatonin 3 mg QHS PO Last administered on 04/04/17 19:58; Start 04/02/17 at 21:00 Divalproex Sodium (Depakote Sprinkles) 500 mg HS PO Last administered on 19:58; Start 04/02/17 at 21:00 Carbidopa/Levodopa (Sinemet 25/100) 2 tab BID PO Last administered on 19:58; Start 04/02/17 at 21:00 Magnesium Oxide (Magnesium Oxide) 400 mg BID PO Last administered on 04/04/17 19:58; Start 04/03/17 at 21:00 Active Scripts Active Reported Prilosec Otc (Omeprazole Magnesium) 20 Mg Tablet.dr 20 Mg PO DAILY [place] 3 1,000 Mg Softgel ([place]-3 Fatty Acids/Fish Oil) 1 Each Capsule 1,000 Mg PO DAILY Namenda (Memantine Hcl) 10 Mg Tablet 10 Mg PO BID Lisinopril 20 Mg Tablet 20 Mg PO DAILY Keppra (Levetiracetam) 500 Mg Tablet 500 Mg PO BID Hydrochlorothiazide Tablet (Hydrochlorothiazide) 12.5 Mg Tablet 12.5 Mg PO DAILY Aricept (Donepezil Hcl) 10 Mg Tablet 10 Mg PO QHS Celexa (Citalopram Hydrobromide) 10 Mg Tablet 10 Mg PO DAILY Sinemet Cr 50-200 Tablet (Carbidopa/Levodopa) 1 Each Tablet.er 1 Tab PO BID Diagnosis: Problems: (1) Alzheimer's dementia (2) Anxiety disorder (3) Impulse control disorder (4) Major depressive disorder, recurrent episode (5) Major neurocognitive disorder, due to vascular disease, with behavioral disturbance, mild (6) Parkinson's disease (7) Vascular dementia with behavioral disturbance OSMANY KEYES MD Apr 04, 2017 21:39
--- NOTE | 2017-04-04 21:44 | PN ---
DATE: 04/02/2017 SUBJECTIVE: The patient denies any new medical or neurological complaints. He has not had any seizures since being off Keppra. Instead the patient has been on Depakote 500 mg at bedtime. OBJECTIVE: GENERAL: Well-developed, well-nourished white male, not in acute distress. VITAL SIGNS: Blood pressure 140/71, respiratory rate is 16, pulse 75, temperature 98.3, and oxygen saturation 96% on room air. HEENT: Normocephalic, atraumatic, otherwise unremarkable. NECK: Supple. Negative for carotid bruit, lymphadenopathy or thyromegaly. LUNGS: Clear to A and P. CARDIOVASCULAR: Regular rate and rhythm, normal S1, S2. ABDOMEN: Soft. Bowel sounds positive. EXTREMITIES: Negative for cyanosis, clubbing or edema. NEUROLOGICAL: Mental Status: The patient is alert and oriented to himself. Speech is fluent. There is no language dysfunction. His memory, judgment, and abstract thinking are full. The patient denies hallucination or delusion. Cranial nerves are grossly intact. No focal motor or sensory deficit. The patient had mild resting tremor of both hands. The tone is slightly increased in the lower extremities. Sensory examination revealed normal pinprick and light touch senses throughout. Deep tendon reflexes are symmetric with absent Achilles responses. Gait: The patient walks by himself. However, he sometimes walks fast and had tendency to fall. IMPRESSION: 1. Multiple neurological problems include dementia of Alzheimer type versus Lewy body dementia. 2. Parkinson's disease. 3. Multiple psychiatric problems including depressions and behavior disturbances. 4. Multiple medical problems include hypertension, hyperlipidemia and acute gastroesophageal reflux disease. RECOMMENDATIONS: Continue with current medical and psychiatric care. The patient is neurologically stable. M Gomez STUBBS MD DR: TANISHA/quinton JOB#: [id number] / [id number]
--- NOTE | 2017-04-04 21:52 | CONS ---
DATE OF CONSULTATION: 03/27/2017 REASON FOR CONSULTATION: Seizure disorder. REFERRING PHYSICIAN: Dre Oliva MD HISTORY OF PRESENT ILLNESS: This is an 86-year-old right-handed male who was admitted on the account of behavior disturbances, history of seizure disorder, and Parkinson's disease. Neuro consult was requested because the patient has had a longstanding history of Parkinson disease and seizure disorder of unknown etiology. The patient has had history of dementia and unable to provide reliable information. He who was initially seen at [facility] and was recommended to have inpatient care. Because of dangerous behaviors as he has been more combative, delusional, confused, and tried to drive or leave the house and ask somebody to get him . The patient has been recently agitated and dangerous and he is not reliable. No further details about his seizure frequency or the type at this point. However, he has been on Keppra. His appetite is erratic with sleep disturbances. He denies any new medical or neurological complaints. PAST MEDICAL HISTORY: Significant for hypertension, dementia, behavioral disturbances as described above, hypertension, hyperlipidemia, Parkinson's disease with tremor and possible Lewy body dementia, prostate cancer, GERD, and history of seizure of unknown etiology as described above. SOCIAL HISTORY: The patient lives with his family at home. He denies smoking, alcohol drinking, or illicit drug use. FAMILY HISTORY: Noncontributory. CURRENT HOME MEDICATIONS: Include Namenda 10 mg b.i.d., Aricept 10 mg at bedtime, Celexa 10 mg p.o. daily, Keppra 500 mg twice daily, trazodone 50 mg nightly. ALLERGIES: PENICILLIN. PHYSICAL EXAMINATION: GENERAL: Well-developed, well-nourished white male, not in acute distress. He weighs 171 pounds. VITAL SIGNS: Blood pressure 127/57, respiratory rate 18, pulse is 67, temperature 98.4, oxygen saturation 95% on room air. HEENT: Normocephalic, atraumatic, otherwise unremarkable. NECK: Supple. Negative for carotid bruit, lymphadenopathy or thyromegaly. LUNGS: Clear to A and P. CARDIOVASCULAR: Regular rate and rhythm, normal S1, S2. There is no S3, S4 or murmur. ABDOMEN: Soft. Bowel sounds positive. EXTREMITIES: Negative for cyanosis, clubbing or pitting edema. NEUROLOGIC: MENTAL STATUS: The patient is alert and oriented x 3. The patient is alert and disoriented to time and place. His speech is slow, but he is somewhat agitated and aggressive, delusional and suspicious. Memory, judgment, and abstract thinking, not done as the patient was not cooperative. CRANIAL NERVES: The pupils are reactive to light and accommodation. The extraocular movements are intact. There is no nystagmus. There is no facial motor or sensory deficit. Hearing appears to be intact. The palate is elevated symmetrically. Further evaluation is limited. MOTOR: No focal muscle bulk was seen. The tone is normal. The strength is 5/5 throughout. Sensory examination revealed normal pinprick and light touch senses throughout. Deep tendon reflexes are symmetric and hypoactive without pathology responses. Gait: The patient walks occasionally by himself and sometimes uses a walker. The patient has intermittent resting tremor of the hands. LABORATORY DATA: CBC revealed white blood cells of 9.3, hemoglobin 15.5, hematocrit 45.5, platelet count 252,000. Chemistry revealed sodium of 135, potassium 3.5, chloride 97, CO2 32, BUN 16, creatinine 1.1, glucose is 108, calcium 8.9. Vitamin D is low at 21.5 and vitamin B12 is low at 277. Liver enzymes are normal and thyroid profile is normal. IMPRESSION: 1. Seizure disorder of unknown etiology. The patient has not had any recurrent seizures since admission. 2. Multiple medical problems include hypertension, hyperlipidemia, and GERD. 3. Multiple neurological problems include dementia of Alzheimer type and Parkinson disease. 4. Multiple psychiatric problems include behavioral disturbances and delusion. 5. Vitamin D and vitamin B12 deficiencies. RECOMMENDATIONS: 1. We obtain previous medical record from previous admission. 2. We will obtain further information about his seizure from his family. 3. Continue with current management initiated by Dr. Oliva, and continue with current home medications. 4. Vitamin D supplement and vitamin B12 daily supplements. M Gomez STUBBS MD DR: TANISHA/quinton JOB#: [id number] / [id number]
--- NOTE | 2017-04-04 22:00 | PN ---
DATE: 03/29/2017 SUBJECTIVE: The patient denies any new medical or neurological complaints; however, he continued to be somewhat agitated and aggressive. His appetite has been erratic and his sleep has been disturbed. I had a chance to talk to his daughter who stated that the patient had only one seizure a few months back and he was placed on Keppra without any recurrence of his seizure. The etiology of his seizure was unknown. Dr. Oliva wanted to keep the patient on Depakote, for mood stabilizing. The patient denies any new medical or neurological complaints. OBJECTIVE: GENERAL: Well-developed, well-nourished white male, not in acute distress. VITAL SIGNS: Blood pressure 136/61, respiratory rate 18, pulse is 64, temperature 97.1, oxygen saturation 99% on room air. HEENT: Normocephalic, atraumatic, otherwise unremarkable. NECK: Supple. Negative for carotid bruit, lymphadenopathy or thyromegaly. LUNGS: Clear to A and P. CARDIOVASCULAR: Regular rate and rhythm, normal S1, S2. ABDOMEN: Soft. Bowel sounds positive. EXTREMITIES: Negative for cyanosis, clubbing or pitting edema. NEUROLOGIC: The patient is alert to himself. He is disoriented to time, place, and person. Speech is fluent. There is no language dysfunction. Memory, judgment, and abstract thinking are poor. The patient denies hallucination or delusion. Cranial nerves are intact and no focal motor or sensory deficit. The patient continues to have intermittent mild resting tremor of the hands at rest. The tone is slightly increased in the lower extremities. The patient has been amputated, today was using a walker. IMPRESSION: 1. Dementia of Alzheimer type and possible Lewy body dementia. 2. History of seizure disorder. The patient has been on Keppra for a single seizure in the past without recurrence. 3. Multiple medical problems include hypertension and hyperlipidemia. 4. Behavior disturbances. RECOMMENDATIONS: 1. We will discontinue on Keppra as it is possible causing some behavior disturbances. 2. Agree with Depakote as recommended by Dr. Oliva. 3. We will continue with current medical and psychiatric care. M Gomez STUBBS MD DR: TANISHA/quinton JOB#: [id number] / [id number]
--- NOTE | 2017-04-04 22:15 | PN ---
DATE: 03/31/2017 SUBJECTIVE: The patient denies any new medical or neurological complaints. His Keppra was discontinued 2 days ago and the patient has not had any recurrent seizure. However, he has been on the Depakote since. OBJECTIVE: GENERAL: Well-developed, well-nourished white male, not in acute distress. VITAL SIGNS: Blood pressure 104/65, respiratory rate 16, pulse is 69, temperature 98.4, oxygen saturation 94% on room air. HEENT: Normocephalic, atraumatic, otherwise unremarkable. NECK: Supple. Negative for carotid bruit, lymphadenopathy or thyromegaly. LUNGS: Clear to A and P. CARDIOVASCULAR: Regular rate and rhythm, normal S1, S2. There is no S3 or S4, murmur. ABDOMEN: Soft. Bowel sounds positive. EXTREMITIES: Negative for cyanosis, clubbing, or pitting edema. NEUROLOGICAL EXAM: Mental Status: The patient is alert to himself and disoriented to time and place and person. Speech is somewhat fluent. There is no language dysfunction. Memory, judgment, and abstract thinkings are fair to poor. The patient denies hallucination or delusion. Cranial nerves are grossly intact. Motor Examination: No focal muscle bulk was seen. The tone was increased in the lower extremities. The patient has mild resting tremor of both hands. Otherwise, unremarkable. Sensory examination revealed normal pinprick and light touch senses throughout. Deep tendon reflexes were symmetric and hypoactive without pathology responses. Gait: The patient has been confined to the wheelchair today. He does not want to walk. IMPRESSION: 1. Dementia of Alzheimer type. 2. History of single seizure, no recurrence. 3. Multiple medical problems including hypertension, hyperlipidemia, and gastroesophageal reflux disease. 4. Behavior disturbances. 5. Vitamin B12 and vitamin D deficiencies. RECOMMENDATIONS: 1. Continue with current management for Parkinson disease with carbidopa/levodopa. 2. Continue with current medication and medical and psychiatric care. M Gomez STUBBS MD DR: TANISHA/quinton JOB#: [id number] / [id number]
--- NOTE | 2017-04-04 23:46 | PN ---
DATE: 04/03/2017 This late entry for 04/03/2017 covers elements not covered in my initial note of 04/03/2017. SUBJECTIVE: I met with the patient the evening of 04/03/2017. The patient slept 7-1/4 hours previous evening. Appetite is fair. Cooperative with shower. UA has still to be obtained. As I met with him, he was picking on things on the floor and meticulously looking at the folds and creases on his bedsheet in his room. Quite confused. REVIEW OF SYSTEMS: No CV, , pulmonary, eye, ENT system symptoms on review. Gait unsteady in a wheelchair. MENTAL STATUS EXAMINATION: Oriented to himself. Insight, judgment, recent and remote memory, attention, concentration, fund of knowledge poor, consistent with his diagnosis mentioned in my initial note. PLAN: Continue current psychotropics, Depakote ER has been changed to Sprinkles, consequent to not being able to take full capsules orally as he spits them out. Reviewed drug interactions. Risk/benefit ratio favors no further change. Check UA. MAN Diana KEYES MD DR: MARAL/quinton JOB#: [id number] / [id number]
[2017-04-05 06:36] VITALS: BP 156/84
[2017-04-05] MEDS: CARBIDOPA/LEVODOPA 25/100MG TABLET PO SCH ×2 (08:27→19:37)
[2017-04-05] MEDS: OMEGA-3 FATTY ACIDS/FISH OIL 1,000 MG CAPSULE. PO SCH (08:27)
[2017-04-05] MEDS: MAGNESIUM OXIDE 400 MG TABLET PO SCH ×2 (08:28→19:35)
[2017-04-05] MEDS: QUEtiapine 25 MG TABLET. PO SCH ×3 (08:28→17:09)
[2017-04-05] MEDS: LISINOPRIL 20 MG TABLET PO SCH (08:28)
[2017-04-05] MEDS: hydroCHLOROthiazide 12.5 MG CAPSULE PO SCH (08:28)
[2017-04-05] MEDS: PANTOPRAZOLE 40 MG TABLET. PO SCH (08:28)
[2017-04-05] MEDS: SERTRALINE 50 MG TABLET. PO SCH (08:28)
[2017-04-05] MEDS: MEMANTINE 10 MG TABLET. PO SCH ×2 (08:29→19:35)
[2017-04-05 15:12] VITALS: BP 126/64
[2017-04-05] MEDS: DONEPEZIL HCL 10 MG TABLET PO SCH (19:35)
[2017-04-05] MEDS: MELATONIN 3 MG TABLET PO SCH (19:35)
[2017-04-05] MEDS: MIRTAZAPINE 15 MG TABLET PO SCH (19:35)
[2017-04-05] MEDS: traZODone 100 MG TABLET. PO SCH (19:37)
[2017-04-06 06:04] VITALS: BP 122/87
[2017-04-06] MEDS: MAGNESIUM OXIDE 400 MG TABLET PO SCH ×2 (07:46→19:18)
[2017-04-06] MEDS: QUEtiapine 25 MG TABLET. PO SCH ×3 (07:46→17:56)
[2017-04-06] MEDS: PANTOPRAZOLE 40 MG TABLET. PO SCH (07:46)
[2017-04-06] MEDS: MEMANTINE 10 MG TABLET. PO SCH ×2 (07:46→19:19)
[2017-04-06] MEDS: SERTRALINE 50 MG TABLET. PO SCH (07:47)
[2017-04-06] MEDS: CARBIDOPA/LEVODOPA 25/100MG TABLET PO SCH ×2 (07:47→19:19)
[2017-04-06] MEDS: OMEGA-3 FATTY ACIDS/FISH OIL 1,000 MG CAPSULE. PO SCH (07:47)
[2017-04-06] MEDS: LISINOPRIL 20 MG TABLET PO SCH (07:47)
[2017-04-06] MEDS: hydroCHLOROthiazide 12.5 MG CAPSULE PO SCH (07:47)
--- NOTE | 2017-04-06 13:25 | PDOC ---
Exam Je Demential Exam: Je Note: Please also refer to the separate dictated note~for this date of service dictated separately.~Patient seen individually. Discussed the patient with Nursing staff reviewed the chart.~Reviewed interim history and current functioning. Reviewed vital signs,~Labs/ Radiology~and current medications noted below. Continue current treatment with the changes noted in the dictated addendum note Assessment: Vital Signs: Vital Signs Date Time Temp Pulse Resp B/P (MAP) Pulse Ox O2 Delivery O2 Flow Rate FiO2 04/06/17 07:47 60 122/87 04/06/17 06:04 97.3 18 97 04/05/17 15:12 Room Air I&O Intake and Output 04/07/17 07:00 Intake Total 480 ml Balance 480 ml Intake Oral 480 ml Current Medications: Meds: Current Medications Influenza Virus Vaccine Quadrival (Fluarix Quad [id number] Syringe) 0.5 ml ONCE ONCE VAX IM ; Start 03/26/17 at 09:00; Stop 03/26/17 at 19:21; Status DC Acetaminophen (Tylenol) 650 mg PRN Q6HRS PRN PO PAIN / TEMP; Start 03/26/17 at 03:00 Multi-Ingredient Ointment (Analgesic [place]) 1 mary PRN QID PRN TP MUSCLE PAIN; Start 03/26/17 at 03:00 Al Hydroxide/Mg Hydroxide (Mylanta Plus Xs) 15 ml PRN AFTMEALHC PRN PO DYSPEPSIA; Start 03/26/17 at 03:00 Magnesium Hydroxide (Milk Of Magnesia) 2,400 mg PRN QHS PRN PO CONSTIPATION; Start 03/26/17 at 03:00 Citalopram Hydrobromide (CeleXA) 10 mg DAILY PO Last administered on 10:37; Start 03/26/17 at 09:00; Stop 03/26/17 at 19:27; Status DC Donepezil HCl (Aricept) 10 mg QHS PO Last administered on 04/05/17 19:35; Start 03/26/17 at 21:00 Memantine (Namenda) 10 mg BID PO Last administered on 04/06/17 07:46; Start 03/26/17 at 09:00 Carbidopa/Levodopa (Sinemet Cr) 1 tab.sa BID PO Last administered on 04/02/17 09:08; Start 03/26/17 at 09:00; Stop 04/02/17 at 19:48; Status DC Levetiracetam (Keppra) 500 mg BID PO Last administered on 03/29/17 07:12; Start 03/26/17 at 09:00; Stop 03/29/17 at 17:44; Status DC Lisinopril (Prinivil) 20 mg DAILY PO Last administered on 04/06/17 07:47; Start 03/26/17 at 09:00 Hydrochlorothiazide (Microzide) 12.5 mg DAILY PO Last administered on 07:47; Start 03/26/17 at 09:00 Fish Oil (Fish Oil) 1,000 mg DAILY PO Last administered on 04/06/17 07:47; Start 03/26/17 at 09:00 Pantoprazole Sodium (Protonix) 40 mg DAILYAC PO Last administered on 07:46; Start 03/26/17 at 07:30 Olanzapine (ZyPREXA ZYDIS) 2.5 mg PRN Q2HR PRN PO PSYCHOSIS Last administered on 04/01/17 18:38; Start 03/26/17 at 06:45 Trazodone HCl (Desyrel) 50 mg QHS PO ; Start 03/26/17 at 21:00; Stop 03/26/17 at 21:00; Status DC Trazodone HCl (Desyrel) 50 mg PRN QHS PRN PO INSOMNIA; Start 03/26/17 at 06:45 ; Stop 03/26/17 at 19:27; Status DC Influenza Virus Vaccine Quadrival (Fluarix Quad [id number] Syringe) 0.5 ml ONCE ONCE VAX IM Last administered on 03/28/17 15:51; Start 03/28/17 at 09:00; Stop 03/28/17 at 09:01; Status DC Trazodone HCl (Desyrel) 100 mg PRN QHS PRN PO INSOMNIA; Start 03/26/17 at 19: 30; Stop 03/26/17 at 19:32; Status DC Trazodone HCl (Desyrel) 100 mg QHS PO ; Start 03/26/17 at 21:00; Stop at 21:00; Status DC Sertraline HCl (Zoloft) 50 mg DAILY PO Last administered on 04/06/17 07:47; Start 03/27/17 at 09:00 Mirtazapine (Remeron) 7.5 mg QHS PO Last administered on 03/30/17 19:38; Start 03/26/17 at 21:00; Stop 03/31/17 at 19:34; Status DC Trazodone HCl (Desyrel) 100 mg QHS PO Last administered on 04/05/17 19:37; Start 03/26/17 at 21:00 Trazodone HCl (Desyrel) 100 mg PRN QHS PRN PO Insomnia Last administered on 21:41; Start 03/26/17 at 19:30 Quetiapine Fumarate (SEROquel) 12.5 mg BID92 PO Last administered on 03/30/17 13:48; Start 03/28/17 at 09:00; Stop 03/31/17 at 02:54; Status DC Quetiapine Fumarate (SEROquel) 25 mg STK-MED ONCE .ROUTE ; Start 03/28/17 at 08: 02; Stop 03/28/17 at 08:03; Status DC Cyanocobalamin (Vitamin B-12) 1,000 mcg [id number] IM Last administered on 15:51; Start 03/28/17 at 14:00 Vitamin D (Vitamin D3) 50,000 unit WEEKLY PO Last administered on 04/04/17 08: 33; Start 03/28/17 at 14:00 Divalproex Sodium (Depakote Er) 500 mg QHS PO Last administered on 04/01/17 18 :38; Start 03/29/17 at 21:00; Stop 04/02/17 at 19:42; Status DC Quetiapine Fumarate (SEROquel) 12.5 mg DAILYWSUP PO ; Start 03/31/17 at 17:00; Stop 03/31/17 at 17:00; Status DC Quetiapine Fumarate (SEROquel) 12.5 mg TID@0900,1400,1700 PO Last administered on 04/06/17 07:46; Start 03/31/17 at 09:00 Mirtazapine (Remeron) 15 mg QHS PO Last administered on 04/05/17 19:35; Start 03/31/17 at 21:00 Melatonin 3 mg QHS PO Last administered on 04/05/17 19:35; Start 04/02/17 at 21:00 Divalproex Sodium (Depakote Sprinkles) 500 mg HS PO Last administered on 19:58; Start 04/02/17 at 21:00; Stop 04/05/17 at 11:28; Status DC Carbidopa/Levodopa (Sinemet 25/100) 2 tab BID PO Last administered on 07:47; Start 04/02/17 at 21:00 Magnesium Oxide (Magnesium Oxide) 400 mg BID PO Last administered on 07:46; Start 04/03/17 at 21:00 Active Scripts Active Reported Prilosec Otc (Omeprazole Magnesium) 20 Mg Tablet.dr 20 Mg PO DAILY [place] 3 1,000 Mg Softgel ([place]-3 Fatty Acids/Fish Oil) 1 Each Capsule 1,000 Mg PO DAILY Namenda (Memantine Hcl) 10 Mg Tablet 10 Mg PO BID Lisinopril 20 Mg Tablet 20 Mg PO DAILY Keppra (Levetiracetam) 500 Mg Tablet 500 Mg PO BID Hydrochlorothiazide Tablet (Hydrochlorothiazide) 12.5 Mg Tablet 12.5 Mg PO DAILY Aricept (Donepezil Hcl) 10 Mg Tablet 10 Mg PO QHS Celexa (Citalopram Hydrobromide) 10 Mg Tablet 10 Mg PO DAILY Sinemet Cr 50-200 Tablet (Carbidopa/Levodopa) 1 Each Tablet.er 1 Tab PO BID I have reviewed the current psychotropics carefully including drug interactions. Risk benefit ratio favors no change other than as noted in my dictated progress note. Diagnosis: Problems: (1) Vascular dementia with behavioral disturbance (2) Parkinson's disease (3) Major depressive disorder, recurrent episode (4) Major neurocognitive disorder, due to vascular disease, with behavioral disturbance, mild (5) Impulse control disorder (6) Anxiety disorder (7) Alzheimer's dementia OSMANY KEYES MD Apr 06, 2017 13:25
[2017-04-06 16:31] VITALS: BP 125/78
[2017-04-06] MEDS: DONEPEZIL HCL 10 MG TABLET PO SCH (19:18)
[2017-04-06] MEDS: MIRTAZAPINE 15 MG TABLET PO SCH (19:18)
[2017-04-06] MEDS: traZODone 100 MG TABLET. PO SCH (19:18)
[2017-04-06] MEDS: MELATONIN 3 MG TABLET PO SCH (19:19)
--- NOTE | 2017-04-07 02:43 | PN ---
DATE: 04/05/2017 This late entry for 04/05/2017 covers elements not covered in my initial note of 04/05/2017. SUBJECTIVE: The patient was staffed at a treatment team meeting with the entire team morning of 04/05/2017, seen individually evening of 04/05/2017. The patient's daughter, Larisa, attended the treatment team meeting. Reviewed the patient's history, diagnosis, progress, discharge, aftercare plans, transfer to [facility]. He continues to have unsteady gait. REVIEW OF SYSTEMS: No CV, , pulmonary, eye, ENT system symptoms on review. Reliability poor. MENTAL STATUS EXAM: Oriented to himself. Insight, judgment, recent and remote memory, attention, concentration, fund of knowledge poor, consistent with his diagnosis mentioned in my initial note. TREATMENT PLAN: Stop the Depakote since this appears to be interfering with his ambulation. Maintain the rest of psychotropics. Reviewed drug interactions. Risk/benefit ratio favors no further change. OSMANY KEYES MD DR: MARAL/quinton JOB#: [id number] / [id number]
--- NOTE | 2017-04-07 03:03 | PN ---
DATE: 04/06/2017 This is a late entry 04/04/2017, covered elements not covered in my initial note of 04/04/2017. Met with the patient in the evening of 04/04/2017. The patient's gait has been unsteady. He is walking all day but stumbling, was in a wheelchair in the evening, slept 8-1/4 hours. No CV, , pulmonary, eye, ENT system symptoms on review. Grabbing at things in the air as I met with him, obsessively touching the creases of his bedsheet. MENTAL STATUS EXAM: Oriented to himself. Insight, judgment, recent and remote memory, attention, concentration, fund of knowledge poor, consistent with his diagnosis. PLAN: Check UA. Continue current psychotropics. Valproic acid level 40, reviewed drug interactions. Risk/benefit ratio favors no further change. MAN Diana KEYES MD DR: MARAL/quinton JOB#: [id number] / [id number]
[2017-04-07 06:00] VITALS: BP 141/72
[2017-04-07] MEDS: MEMANTINE 10 MG TABLET. PO SCH ×2 (08:03→19:30)
[2017-04-07] MEDS: CARBIDOPA/LEVODOPA 25/100MG TABLET PO SCH ×2 (08:03→19:29)
[2017-04-07] MEDS: SERTRALINE 50 MG TABLET. PO SCH (08:03)
[2017-04-07] MEDS: OMEGA-3 FATTY ACIDS/FISH OIL 1,000 MG CAPSULE. PO SCH (08:03)
[2017-04-07] MEDS: MAGNESIUM OXIDE 400 MG TABLET PO SCH ×2 (08:03→19:29)
[2017-04-07] MEDS: PANTOPRAZOLE 40 MG TABLET. PO SCH (08:04)
[2017-04-07] MEDS: QUEtiapine 25 MG TABLET. PO SCH ×3 (08:04→17:18)
[2017-04-07] MEDS: hydroCHLOROthiazide 12.5 MG CAPSULE PO SCH (08:04)
[2017-04-07] MEDS: LISINOPRIL 20 MG TABLET PO SCH (08:04)
[2017-04-07 15:58] VITALS: BP 160/82
[2017-04-07] MEDS: MELATONIN 3 MG TABLET PO SCH (19:29)
[2017-04-07] MEDS: DONEPEZIL HCL 10 MG TABLET PO SCH (19:30)
[2017-04-07] MEDS: traZODone 100 MG TABLET. PO SCH (19:30)
[2017-04-07] MEDS: MIRTAZAPINE 15 MG TABLET PO SCH (19:30)
--- NOTE | 2017-04-07 19:49 | PDOC ---
Exam Note: Je Note: Please also refer to the separate dictated note~for this date of service dictated separately.~Patient seen individually. Discussed the patient with Nursing staff reviewed the chart.~Reviewed interim history and current functioning. Reviewed vital signs,~Labs/ Radiology~and current medications noted below. Continue current treatment with the changes noted in the dictated addendum note Assessment: Vital Signs: Vital Signs Date Time Temp Pulse Resp B/P (MAP) Pulse Ox O2 Delivery O2 Flow Rate FiO2 04/07/17 15:58 97.4 63 16 160/82 (108) 98 Room Air I&O Intake and Output 04/08/17 07:00 Intake Total 480 ml Balance 480 ml Intake Oral 480 ml Current Medications: Meds: Current Medications Influenza Virus Vaccine Quadrival (Fluarix Quad [id number] Syringe) 0.5 ml ONCE ONCE VAX IM ; Start 03/26/17 at 09:00; Stop 03/26/17 at 19:21; Status DC Acetaminophen (Tylenol) 650 mg PRN Q6HRS PRN PO PAIN / TEMP; Start 03/26/17 at 03:00 Multi-Ingredient Ointment (Analgesic [place]) 1 mary PRN QID PRN TP MUSCLE PAIN; Start 03/26/17 at 03:00 Al Hydroxide/Mg Hydroxide (Mylanta Plus Xs) 15 ml PRN AFTMEALHC PRN PO DYSPEPSIA; Start 03/26/17 at 03:00 Magnesium Hydroxide (Milk Of Magnesia) 2,400 mg PRN QHS PRN PO CONSTIPATION; Start 03/26/17 at 03:00 Citalopram Hydrobromide (CeleXA) 10 mg DAILY PO Last administered on 10:37; Start 03/26/17 at 09:00; Stop 03/26/17 at 19:27; Status DC Donepezil HCl (Aricept) 10 mg QHS PO Last administered on 04/07/17 19:30; Start 03/26/17 at 21:00 Memantine (Namenda) 10 mg BID PO Last administered on 04/07/17 19:30; Start 03/26/17 at 09:00 Carbidopa/Levodopa (Sinemet Cr) 1 tab.sa BID PO Last administered on 04/02/17 09:08; Start 03/26/17 at 09:00; Stop 04/02/17 at 19:48; Status DC Levetiracetam (Keppra) 500 mg BID PO Last administered on 03/29/17 07:12; Start 03/26/17 at 09:00; Stop 03/29/17 at 17:44; Status DC Lisinopril (Prinivil) 20 mg DAILY PO Last administered on 04/07/17 08:04; Start 03/26/17 at 09:00 Hydrochlorothiazide (Microzide) 12.5 mg DAILY PO Last administered on 08:04; Start 03/26/17 at 09:00 Fish Oil (Fish Oil) 1,000 mg DAILY PO Last administered on 04/07/17 08:03; Start 03/26/17 at 09:00 Pantoprazole Sodium (Protonix) 40 mg DAILYAC PO Last administered on 08:04; Start 03/26/17 at 07:30 Olanzapine (ZyPREXA ZYDIS) 2.5 mg PRN Q2HR PRN PO PSYCHOSIS Last administered on 04/01/17 18:38; Start 03/26/17 at 06:45 Trazodone HCl (Desyrel) 50 mg QHS PO ; Start 03/26/17 at 21:00; Stop 03/26/17 at 21:00; Status DC Trazodone HCl (Desyrel) 50 mg PRN QHS PRN PO INSOMNIA; Start 03/26/17 at 06:45 ; Stop 03/26/17 at 19:27; Status DC Influenza Virus Vaccine Quadrival (Fluarix Quad [id number] Syringe) 0.5 ml ONCE ONCE VAX IM Last administered on 03/28/17 15:51; Start 03/28/17 at 09:00; Stop 03/28/17 at 09:01; Status DC Trazodone HCl (Desyrel) 100 mg PRN QHS PRN PO INSOMNIA; Start 03/26/17 at 19: 30; Stop 03/26/17 at 19:32; Status DC Trazodone HCl (Desyrel) 100 mg QHS PO ; Start 03/26/17 at 21:00; Stop at 21:00; Status DC Sertraline HCl (Zoloft) 50 mg DAILY PO Last administered on 04/07/17 08:03; Start 03/27/17 at 09:00 Mirtazapine (Remeron) 7.5 mg QHS PO Last administered on 03/30/17 19:38; Start 03/26/17 at 21:00; Stop 03/31/17 at 19:34; Status DC Trazodone HCl (Desyrel) 100 mg QHS PO Last administered on 04/07/17 19:30; Start 03/26/17 at 21:00 Trazodone HCl (Desyrel) 100 mg PRN QHS PRN PO Insomnia Last administered on 21:41; Start 03/26/17 at 19:30 Quetiapine Fumarate (SEROquel) 12.5 mg [id number] PO Last administered on 03/30/17 13:48; Start 03/28/17 at 09:00; Stop 03/31/17 at 02:54; Status DC Quetiapine Fumarate (SEROquel) 25 mg STK-MED ONCE .ROUTE ; Start 03/28/17 at 08: 02; Stop 03/28/17 at 08:03; Status DC Cyanocobalamin (Vitamin B-12) 1,000 mcg [id number] IM Last administered on 15:51; Start 03/28/17 at 14:00 Vitamin D (Vitamin D3) 50,000 unit WEEKLY PO Last administered on 04/04/17 08: 33; Start 03/28/17 at 14:00 Divalproex Sodium (Depakote Er) 500 mg QHS PO Last administered on 04/01/17 18 :38; Start 03/29/17 at 21:00; Stop 04/02/17 at 19:42; Status DC Quetiapine Fumarate (SEROquel) 12.5 mg DAILYWSUP PO ; Start 03/31/17 at 17:00; Stop 03/31/17 at 17:00; Status DC Quetiapine Fumarate (SEROquel) 12.5 mg TID@0900,1400,1700 PO Last administered on 04/07/17 17:18; Start 03/31/17 at 09:00 Mirtazapine (Remeron) 15 mg QHS PO Last administered on 04/07/17 19:30; Start 03/31/17 at 21:00 Melatonin 3 mg QHS PO Last administered on 04/07/17 19:29; Start 04/02/17 at 21:00 Divalproex Sodium (Depakote Sprinkles) 500 mg HS PO Last administered on 19:58; Start 04/02/17 at 21:00; Stop 04/05/17 at 11:28; Status DC Carbidopa/Levodopa (Sinemet 25/100) 2 tab BID PO Last administered on 19:29; Start 04/02/17 at 21:00 Magnesium Oxide (Magnesium Oxide) 400 mg BID PO Last administered on 19:29; Start 04/03/17 at 21:00 Medroxyprogesterone Acetate (Provera) 2.5 mg DAILY PO Last administered on 08:07; Start 04/07/17 at 09:00 Active Scripts Active Reported Prilosec Otc (Omeprazole Magnesium) 20 Mg Tablet.dr 20 Mg PO DAILY [place] 3 1,000 Mg Softgel ([place]-3 Fatty Acids/Fish Oil) 1 Each Capsule 1,000 Mg PO DAILY Namenda (Memantine Hcl) 10 Mg Tablet 10 Mg PO BID Lisinopril 20 Mg Tablet 20 Mg PO DAILY Keppra (Levetiracetam) 500 Mg Tablet 500 Mg PO BID Hydrochlorothiazide Tablet (Hydrochlorothiazide) 12.5 Mg Tablet 12.5 Mg PO DAILY Aricept (Donepezil Hcl) 10 Mg Tablet 10 Mg PO QHS Celexa (Citalopram Hydrobromide) 10 Mg Tablet 10 Mg PO DAILY Sinemet Cr 50-200 Tablet (Carbidopa/Levodopa) 1 Each Tablet.er 1 Tab PO BID I have reviewed the current psychotropics carefully including drug interactions. Risk benefit ratio favors no change other than as noted in my dictated progress note. Diagnosis: Problems: (1) Alzheimer's dementia (2) Anxiety disorder (3) Impulse control disorder (4) Major depressive disorder, recurrent episode (5) Major neurocognitive disorder, due to vascular disease, with behavioral disturbance, mild (6) Parkinson's disease (7) Vascular dementia with behavioral disturbance OSMANY KEYES MD Apr 07, 2017 19:49
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
[2017-04-08 06:04] VITALS: BP 148/84
[2017-04-08] MEDS: SERTRALINE 50 MG TABLET. PO SCH (07:41)
[2017-04-08] MEDS: hydroCHLOROthiazide 12.5 MG CAPSULE PO SCH (07:41)
[2017-04-08] MEDS: LISINOPRIL 20 MG TABLET PO SCH (07:41)
[2017-04-08] MEDS: OMEGA-3 FATTY ACIDS/FISH OIL 1,000 MG CAPSULE. PO SCH (07:41)
[2017-04-08] MEDS: MAGNESIUM OXIDE 400 MG TABLET PO SCH ×2 (07:42→19:25)
[2017-04-08] MEDS: MEMANTINE 10 MG TABLET. PO SCH ×2 (07:42→19:28)
[2017-04-08] MEDS: PANTOPRAZOLE 40 MG TABLET. PO SCH (07:42)
[2017-04-08] MEDS: QUEtiapine 25 MG TABLET. PO SCH ×3 (07:42→17:26)
[2017-04-08] MEDS: CARBIDOPA/LEVODOPA 25/100MG TABLET PO SCH ×2 (07:44→19:25)
[2017-04-08 07:52] LABS: BASO # 0.1 x10^3/uL (0.0-0.2); BASO % 1 % (0-3); EOS # 0.3 x10^3/uL (0.0-0.7); EOS % 4 % (0-3); HEMATOCRIT 46.2 % (39.0-53.0); HEMOGLOBIN 15.8 g/dL (13.0-17.5); LYMPH # 2.1 x10^3/uL (1.0-4.8); LYMPH % 29 % (24-48); MEAN CORPUSCULAR HEMOGLOBIN 32 pg (25-35); MEAN CORPUSCULAR HGB CONC 34 g/dL (31-37); MEAN CORPUSCULAR VOLUME 94 fL (79-100); MONO # 0.8 x10^3/uL (0.0-1.1); MONO % 11 % (0-9); NEUT % 55 % (31-73); PLATELET COUNT 248 x10^3/uL (140-400); RED BLOOD COUNT 4.91 x10^6/uL (4.30-5.70); RED CELL DISTRIBUTION WIDTH 13.4 % (11.5-14.5); WHITE BLOOD COUNT 7.2 x10^3/uL (4.0-11.0)
[2017-04-08 08:00] LABS: ALBUMIN 3.4 g/dL (3.4-5.0); ALBUMIN/GLOBULIN RATIO 0.9 (1.0-1.7); CALCIUM 9.3 mg/dL (8.5-10.1); CREATININE 0.9 mg/dL (0.7-1.3); GFR 80.4; TOTAL BILIRUBIN 0.5 mg/dL (0.2-1.0)
[2017-04-08 15:58] VITALS: BP 136/81
[2017-04-08] MEDS: MELATONIN 3 MG TABLET PO SCH (19:25)
[2017-04-08] MEDS: MIRTAZAPINE 15 MG TABLET PO SCH (19:26)
[2017-04-08] MEDS: DONEPEZIL HCL 10 MG TABLET PO SCH (19:26)
[2017-04-08] MEDS: traZODone 100 MG TABLET. PO SCH (19:26)
--- NOTE | 2017-04-08 19:48 | PDOC ---
Exam Note: Je Note: Please also refer to the separate dictated note~for this date of service dictated separately.~Patient seen individually. Discussed the patient with Nursing staff reviewed the chart.~Reviewed interim history and current functioning. Reviewed vital signs,~Labs/ Radiology~and current medications noted below. Continue current treatment with the changes noted in the dictated addendum note Assessment: Vital Signs: Vital Signs Date Time Temp Pulse Resp B/P (MAP) Pulse Ox O2 Delivery O2 Flow Rate FiO2 04/08/17 15:58 98.2 71 20 136/81 (99) 99 Room Air I&O Intake and Output 04/09/17 07:00 Intake Total 1140 ml Balance 1140 ml Intake Oral 1140 ml Labs: Laboratory Tests Test 04/08/17 07:33 White Blood Count 7.2 x10^3/uL (4.0-11.0) Red Blood Count 4.91 x10^6/uL (4.30-5.70) Hemoglobin 15.8 g/dL (13.0-17.5) Hematocrit 46.2 % (39.0-53.0) Mean Corpuscular Volume 94 fL (79-100) Mean Corpuscular Hemoglobin 32 pg (25-35) Mean Corpuscular Hemoglobin Concent 34 g/dL (31-37) Red Cell Distribution Width 13.4 % (11.5-14.5) Platelet Count 248 x10^3/uL (140-400) Neutrophils (%) (Auto) 55 % (31-73) Lymphocytes (%) (Auto) 29 % (24-48) Monocytes (%) (Auto) 11 % (0-9) H Eosinophils (%) (Auto) 4 % (0-3) H Basophils (%) (Auto) 1 % (0-3) Neutrophils # (Auto) 4.0 x10^3uL (1.8-7.7) Lymphocytes # (Auto) 2.1 x10^3/uL (1.0-4.8) Monocytes # (Auto) 0.8 x10^3/uL (0.0-1.1) Eosinophils # (Auto) 0.3 x10^3/uL (0.0-0.7) Basophils # (Auto) 0.1 x10^3/uL (0.0-0.2) Sodium Level 139 mmol/L (136-145) Potassium Level 4.0 mmol/L (3.5-5.1) Chloride Level 100 mmol/L (98-107) Carbon Dioxide Level 36 mmol/L (21-32) H Anion Gap 3 (6-14) L Blood Urea Nitrogen 10 mg/dL (8-26) Creatinine 0.9 mg/dL (0.7-1.3) Estimated GFR (Cockcroft-Gault) 80.4 BUN/Creatinine Ratio 11 (6-20) Glucose Level 110 mg/dL (70-99) H Calcium Level 9.3 mg/dL (8.5-10.1) Total Bilirubin 0.5 mg/dL (0.2-1.0) Aspartate Amino Transferase (AST) 27 U/L (15-37) Alanine Aminotransferase (ALT) 29 U/L (16-63) Alkaline Phosphatase 59 U/L (46-116) Total Protein 7.0 g/dL (6.4-8.2) Albumin 3.4 g/dL (3.4-5.0) Albumin/Globulin Ratio 0.9 (1.0-1.7) L Current Medications: Meds: Current Medications Influenza Virus Vaccine Quadrival (Fluarix Quad 1196-4736 Syringe) 0.5 ml ONCE ONCE VAX IM ; Start 03/26/17 at 09:00; Stop 03/26/17 at 19:21; Status DC Acetaminophen (Tylenol) 650 mg PRN Q6HRS PRN PO PAIN / TEMP; Start 03/26/17 at 03:00 Multi-Ingredient Ointment (Analgesic [place]) 1 mary PRN QID PRN TP MUSCLE PAIN; Start 03/26/17 at 03:00 Al Hydroxide/Mg Hydroxide (Mylanta Plus Xs) 15 ml PRN AFTMEALHC PRN PO DYSPEPSIA; Start 03/26/17 at 03:00 Magnesium Hydroxide (Milk Of Magnesia) 2,400 mg PRN QHS PRN PO CONSTIPATION; Start 03/26/17 at 03:00 Citalopram Hydrobromide (CeleXA) 10 mg DAILY PO Last administered on t 10:37; Start 03/26/17 at 09:00; Stop 03/26/17 at 19:27; Status DC Donepezil HCl (Aricept) 10 mg QHS PO Last administered on 04/08/17 19:26; Start 03/26/17 at 21:00 Memantine (Namenda) 10 mg BID PO Last administered on 04/08/17 19:28; Start 03/26/17 at 09:00 Carbidopa/Levodopa (Sinemet Cr) 1 tab.sa BID PO Last administered on 04/02/17 09:08; Start 03/26/17 at 09:00; Stop 04/02/17 at 19:48; Status DC Levetiracetam (Keppra) 500 mg BID PO Last administered on 03/29/17 07:12; Start 03/26/17 at 09:00; Stop 03/29/17 at 17:44; Status DC Lisinopril (Prinivil) 20 mg DAILY PO Last administered on 04/08/17 07:41; Start 03/26/17 at 09:00 Hydrochlorothiazide (Microzide) 12.5 mg DAILY PO Last administered on 07:41; Start 03/26/17 at 09:00 Fish Oil (Fish Oil) 1,000 mg DAILY PO Last administered on 04/08/17 07:41; Start 03/26/17 at 09:00 Pantoprazole Sodium (Protonix) 40 mg DAILYAC PO Last administered on 07:42; Start 03/26/17 at 07:30 Olanzapine (ZyPREXA ZYDIS) 2.5 mg PRN Q2HR PRN PO PSYCHOSIS Last administered on 04/08/17 19:28; Start 03/26/17 at 06:45 Trazodone HCl (Desyrel) 50 mg QHS PO ; Start 03/26/17 at 21:00; Stop 03/26/17 at 21:00; Status DC Trazodone HCl (Desyrel) 50 mg PRN QHS PRN PO INSOMNIA; Start 03/26/17 at 06:45 ; Stop 03/26/17 at 19:27; Status DC Influenza Virus Vaccine Quadrival (Fluarix Quad [id number] Syringe) 0.5 ml ONCE ONCE VAX IM Last administered on 03/28/17 15:51; Start 03/28/17 at 09:00; Stop 03/28/17 at 09:01; Status DC Trazodone HCl (Desyrel) 100 mg PRN QHS PRN PO INSOMNIA; Start 03/26/17 at 19: 30; Stop 03/26/17 at 19:32; Status DC Trazodone HCl (Desyrel) 100 mg QHS PO ; Start 03/26/17 at 21:00; Stop at 21:00; Status DC Sertraline HCl (Zoloft) 50 mg DAILY PO Last administered on 04/08/17 07:41; Start 03/27/17 at 09:00 Mirtazapine (Remeron) 7.5 mg QHS PO Last administered on 03/30/17 19:38; Start 03/26/17 at 21:00; Stop 03/31/17 at 19:34; Status DC Trazodone HCl (Desyrel) 100 mg QHS PO Last administered on 04/08/17 19:26; Start 03/26/17 at 21:00 Trazodone HCl (Desyrel) 100 mg PRN QHS PRN PO Insomnia Last administered on 21:41; Start 03/26/17 at 19:30 Quetiapine Fumarate (SEROquel) 12.5 mg [id number] PO Last administered on 03/30/17 13:48; Start 03/28/17 at 09:00; Stop 03/31/17 at 02:54; Status DC Quetiapine Fumarate (SEROquel) 25 mg STK-MED ONCE .ROUTE ; Start 03/28/17 at 08: 02; Stop 03/28/17 at 08:03; Status DC Cyanocobalamin (Vitamin B-12) 1,000 mcg [id number] IM Last administered on 15:51; Start 03/28/17 at 14:00 Vitamin D (Vitamin D3) 50,000 unit WEEKLY PO Last administered on 04/04/17 08: 33; Start 03/28/17 at 14:00 Divalproex Sodium (Depakote Er) 500 mg QHS PO Last administered on 04/01/17 18 :38; Start 03/29/17 at 21:00; Stop 04/02/17 at 19:42; Status DC Quetiapine Fumarate (SEROquel) 12.5 mg DAILYWSUP PO ; Start 03/31/17 at 17:00; Stop 03/31/17 at 17:00; Status DC Quetiapine Fumarate (SEROquel) 12.5 mg TID@0900,1400,1700 PO Last administered on 04/08/17 17:26; Start 03/31/17 at 09:00 Mirtazapine (Remeron) 15 mg QHS PO Last administered on 04/08/17 19:26; Start 03/31/17 at 21:00 Melatonin 3 mg QHS PO Last administered on 04/08/17 19:25; Start 04/02/17 at 21:00 Divalproex Sodium (Depakote Sprinkles) 500 mg HS PO Last administered on 19:58; Start 04/02/17 at 21:00; Stop 04/05/17 at 11:28; Status DC Carbidopa/Levodopa (Sinemet 25/100) 2 tab BID PO Last administered on 19:25; Start 04/02/17 at 21:00 Magnesium Oxide (Magnesium Oxide) 400 mg BID PO Last administered on 19:25; Start 04/03/17 at 21:00 Medroxyprogesterone Acetate (Provera) 2.5 mg DAILY PO Last administered on 07:41; Start 04/07/17 at 09:00 Active Scripts Active Reported Prilosec Otc (Omeprazole Magnesium) 20 Mg Tablet.dr 20 Mg PO DAILY [place] 3 1,000 Mg Softgel ([employer] [place]-3 Fatty Acids/Fish Oil) 1 Each Capsule 1,000 Mg PO DAILY Namenda (Memantine Hcl) 10 Mg Tablet 10 Mg PO BID Lisinopril 20 Mg Tablet 20 Mg PO DAILY Keppra (Levetiracetam) 500 Mg Tablet 500 Mg PO BID Hydrochlorothiazide Tablet (Hydrochlorothiazide) 12.5 Mg Tablet 12.5 Mg PO DAILY Aricept (Donepezil Hcl) 10 Mg Tablet 10 Mg PO QHS Celexa (Citalopram Hydrobromide) 10 Mg Tablet 10 Mg PO DAILY Sinemet Cr 50-200 Tablet (Carbidopa/Levodopa) 1 Each Tablet.er 1 Tab PO BID I have reviewed the current psychotropics carefully including drug interactions. Risk benefit ratio favors no change other than as noted in my dictated progress note. Diagnosis: Problems: (1) Alzheimer's dementia (2) Anxiety disorder (3) Impulse control disorder (4) Major depressive disorder, recurrent episode (5) Major neurocognitive disorder, due to vascular disease, with behavioral disturbance, mild (6) Parkinson's disease (7) Vascular dementia with behavioral disturbance OSMANY KEYES MD Apr 08, 2017 19:48
--- NOTE | 2017-04-09 01:26 | PN ---
DATE: 04/07/2017 PSYCHIATRIC PROGRESS NOTE This late entry 04/07/2017, covers elements not covered in my initial note of 04/07/2017. I met with the patient evening of 04/07/2017. The patient was ambulating better on his own. He is extremely confused, somewhat sexually inappropriate, made sexual comments to the nursing staff, kissing the hand of a female staff and then the cheek. REVIEW OF SYSTEMS: No CV, , pulmonary, eye, ENT system symptoms on review. Reliability poor. MENTAL STATUS EXAM: Oriented to himself. Insight, judgment, recent and remote memory, attention, concentration, fund of knowledge poor, consistent with his diagnosis. This note covers elements not covered in my initial note of 04/07/2017, diagnosis mentioned in my initial note. PLAN: Continue current psychotropics mentioned in my initial note. MAN Diana KEYES MD DR: MARAL/quinton JOB#: [id number] / [id number]
[2017-04-09 05:56] VITALS: BP 145/87
[2017-04-09] MEDS: LISINOPRIL 20 MG TABLET PO SCH (08:31)
[2017-04-09] MEDS: CARBIDOPA/LEVODOPA 25/100MG TABLET PO SCH ×2 (08:31→19:21)
[2017-04-09] MEDS: OMEGA-3 FATTY ACIDS/FISH OIL 1,000 MG CAPSULE. PO SCH (08:31)
[2017-04-09] MEDS: SERTRALINE 50 MG TABLET. PO SCH (08:32)
[2017-04-09] MEDS: hydroCHLOROthiazide 12.5 MG CAPSULE PO SCH (08:32)
[2017-04-09] MEDS: PANTOPRAZOLE 40 MG TABLET. PO SCH (08:32)
[2017-04-09] MEDS: MAGNESIUM OXIDE 400 MG TABLET PO SCH ×2 (08:32→19:21)
[2017-04-09] MEDS: QUEtiapine 25 MG TABLET. PO SCH ×3 (08:32→17:03)
[2017-04-09] MEDS: MEMANTINE 10 MG TABLET. PO SCH ×2 (08:32→19:21)
[2017-04-09 16:11] VITALS: BP 146/91
[2017-04-09] MEDS: traZODone 100 MG TABLET. PO SCH (19:21)
[2017-04-09] MEDS: MIRTAZAPINE 15 MG TABLET PO SCH (19:21)
[2017-04-09] MEDS: DONEPEZIL HCL 10 MG TABLET PO SCH (19:21)
[2017-04-09] MEDS: MELATONIN 3 MG TABLET PO SCH (19:21)
--- NOTE | 2017-04-09 20:08 | PDOC ---
Exam Note: Je Note: Please also refer to the separate dictated note~for this date of service dictated separately.~Patient seen individually. Discussed the patient with Nursing staff reviewed the chart.~Reviewed interim history and current functioning. Reviewed vital signs,~Labs/ Radiology~and current medications noted below. Continue current treatment with the changes noted in the dictated addendum note Assessment: Vital Signs: Vital Signs Date Time Temp Pulse Resp B/P (MAP) Pulse Ox O2 Delivery O2 Flow Rate FiO2 04/09/17 16:11 97.6 100 20 146/91 (109) 97 04/08/17 15:58 Room Air I&O Intake and Output 04/09/17 07:00 Intake Total 1265 ml Balance 1265 ml Intake Oral 1265 ml Current Medications: Meds: Current Medications Influenza Virus Vaccine Quadrival (Fluarix Quad [id number] Syringe) 0.5 ml ONCE ONCE VAX IM ; Start 03/26/17 at 09:00; Stop 03/26/17 at 19:21; Status DC Acetaminophen (Tylenol) 650 mg PRN Q6HRS PRN PO PAIN / TEMP; Start 03/26/17 at 03:00 Multi-Ingredient Ointment (Analgesic [place]) 1 mary PRN QID PRN TP MUSCLE PAIN; Start 03/26/17 at 03:00 Al Hydroxide/Mg Hydroxide (Mylanta Plus Xs) 15 ml PRN AFTMEALHC PRN PO DYSPEPSIA; Start 03/26/17 at 03:00 Magnesium Hydroxide (Milk Of Magnesia) 2,400 mg PRN QHS PRN PO CONSTIPATION; Start 03/26/17 at 03:00 Citalopram Hydrobromide (CeleXA) 10 mg DAILY PO Last administered on 10:37; Start 03/26/17 at 09:00; Stop 03/26/17 at 19:27; Status DC Donepezil HCl (Aricept) 10 mg QHS PO Last administered on 04/09/17 19:21; Start 03/26/17 at 21:00 Memantine (Namenda) 10 mg BID PO Last administered on 04/09/17 19:21; Start 03/26/17 at 09:00 Carbidopa/Levodopa (Sinemet Cr) 1 tab.sa BID PO Last administered on 04/02/17 09:08; Start 03/26/17 at 09:00; Stop 04/02/17 at 19:48; Status DC Levetiracetam (Keppra) 500 mg BID PO Last administered on 03/29/17 07:12; Start 03/26/17 at 09:00; Stop 03/29/17 at 17:44; Status DC Lisinopril (Prinivil) 20 mg DAILY PO Last administered on 04/09/17 08:31; Start 03/26/17 at 09:00 Hydrochlorothiazide (Microzide) 12.5 mg DAILY PO Last administered on 08:32; Start 03/26/17 at 09:00 Fish Oil (Fish Oil) 1,000 mg DAILY PO Last administered on 04/09/17 08:31; Start 03/26/17 at 09:00 Pantoprazole Sodium (Protonix) 40 mg DAILYAC PO Last administered on 08:32; Start 03/26/17 at 07:30 Olanzapine (ZyPREXA ZYDIS) 2.5 mg PRN Q2HR PRN PO PSYCHOSIS Last administered on 04/09/17 15:13; Start 03/26/17 at 06:45 Trazodone HCl (Desyrel) 50 mg QHS PO ; Start 03/26/17 at 21:00; Stop 03/26/17 at 21:00; Status DC Trazodone HCl (Desyrel) 50 mg PRN QHS PRN PO INSOMNIA; Start 03/26/17 at 06:45 ; Stop 03/26/17 at 19:27; Status DC Influenza Virus Vaccine Quadrival (Fluarix Quad [id number] Syringe) 0.5 ml ONCE ONCE VAX IM Last administered on 03/28/17 15:51; Start 03/28/17 at 09:00; Stop 03/28/17 at 09:01; Status DC Trazodone HCl (Desyrel) 100 mg PRN QHS PRN PO INSOMNIA; Start 03/26/17 at 19: 30; Stop 03/26/17 at 19:32; Status DC Trazodone HCl (Desyrel) 100 mg QHS PO ; Start 03/26/17 at 21:00; Stop at 21:00; Status DC Sertraline HCl (Zoloft) 50 mg DAILY PO Last administered on 04/09/17 08:32; Start 03/27/17 at 09:00 Mirtazapine (Remeron) 7.5 mg QHS PO Last administered on 03/30/17 19:38; Start 03/26/17 at 21:00; Stop 03/31/17 at 19:34; Status DC Trazodone HCl (Desyrel) 100 mg QHS PO Last administered on 04/09/17 19:21; Start 03/26/17 at 21:00 Trazodone HCl (Desyrel) 100 mg PRN QHS PRN PO Insomnia Last administered on 21:41; Start 03/26/17 at 19:30 Quetiapine Fumarate (SEROquel) 12.5 mg [id number] PO Last administered on 03/30/17 13:48; Start 03/28/17 at 09:00; Stop 03/31/17 at 02:54; Status DC Quetiapine Fumarate (SEROquel) 25 mg STK-MED ONCE .ROUTE ; Start 03/28/17 at 08: 02; Stop 03/28/17 at 08:03; Status DC Cyanocobalamin (Vitamin B-12) 1,000 mcg [id number] IM Last administered on 15:51; Start 03/28/17 at 14:00 Vitamin D (Vitamin D3) 50,000 unit WEEKLY PO Last administered on 04/04/17 08: 33; Start 03/28/17 at 14:00 Divalproex Sodium (Depakote Er) 500 mg QHS PO Last administered on 04/01/17 18 :38; Start 03/29/17 at 21:00; Stop 04/02/17 at 19:42; Status DC Quetiapine Fumarate (SEROquel) 12.5 mg DAILYWSUP PO ; Start 03/31/17 at 17:00; Stop 03/31/17 at 17:00; Status DC Quetiapine Fumarate (SEROquel) 12.5 mg TID@0900,1400,1700 PO Last administered on 04/09/17 17:03; Start 03/31/17 at 09:00 Mirtazapine (Remeron) 15 mg QHS PO Last administered on 04/09/17 19:21; Start 03/31/17 at 21:00 Melatonin 3 mg QHS PO Last administered on 04/09/17 19:21; Start 04/02/17 at 21:00 Divalproex Sodium (Depakote Sprinkles) 500 mg HS PO Last administered on 19:58; Start 04/02/17 at 21:00; Stop 04/05/17 at 11:28; Status DC Carbidopa/Levodopa (Sinemet 25/100) 2 tab BID PO Last administered on 19:21; Start 04/02/17 at 21:00 Magnesium Oxide (Magnesium Oxide) 400 mg BID PO Last administered on 19:21; Start 04/03/17 at 21:00 Medroxyprogesterone Acetate (Provera) 2.5 mg DAILY PO Last administered on 08:32; Start 04/07/17 at 09:00 Active Scripts Active Reported Prilosec Otc (Omeprazole Magnesium) 20 Mg Tablet.dr 20 Mg PO DAILY [place] 3 1,000 Mg Softgel ([place]-3 Fatty Acids/Fish Oil) 1 Each Capsule 1,000 Mg PO DAILY Namenda (Memantine Hcl) 10 Mg Tablet 10 Mg PO BID Lisinopril 20 Mg Tablet 20 Mg PO DAILY Keppra (Levetiracetam) 500 Mg Tablet 500 Mg PO BID Hydrochlorothiazide Tablet (Hydrochlorothiazide) 12.5 Mg Tablet 12.5 Mg PO DAILY Aricept (Donepezil Hcl) 10 Mg Tablet 10 Mg PO QHS Celexa (Citalopram Hydrobromide) 10 Mg Tablet 10 Mg PO DAILY Sinemet Cr 50-200 Tablet (Carbidopa/Levodopa) 1 Each Tablet.er 1 Tab PO BID I have reviewed the current psychotropics carefully including drug interactions. Risk benefit ratio favors no change other than as noted in my dictated progress note. Diagnosis: Problems: (1) Alzheimer's dementia (2) Anxiety disorder (3) Impulse control disorder (4) Major depressive disorder, recurrent episode (5) Major neurocognitive disorder, due to vascular disease, with behavioral disturbance, mild (6) Parkinson's disease (7) Vascular dementia with behavioral disturbance OSMANY KEYES MD Apr 09, 2017 20:08
[2017-04-10 05:57] VITALS: BP 150/84
[2017-04-10] MEDS: hydroCHLOROthiazide 12.5 MG CAPSULE PO SCH (07:58)
[2017-04-10] MEDS: CARBIDOPA/LEVODOPA 25/100MG TABLET PO SCH ×2 (07:58→20:11)
[2017-04-10] MEDS: PANTOPRAZOLE 40 MG TABLET. PO SCH (07:58)
[2017-04-10] MEDS: MEMANTINE 10 MG TABLET. PO SCH ×2 (07:58→20:11)
[2017-04-10] MEDS: SERTRALINE 50 MG TABLET. PO SCH (07:59)
[2017-04-10] MEDS: OMEGA-3 FATTY ACIDS/FISH OIL 1,000 MG CAPSULE. PO SCH (07:59)
[2017-04-10] MEDS: MAGNESIUM OXIDE 400 MG TABLET PO SCH ×2 (07:59→20:13)
[2017-04-10] MEDS: LISINOPRIL 20 MG TABLET PO SCH (07:59)
[2017-04-10] MEDS: QUEtiapine 25 MG TABLET. PO SCH ×3 (07:59→17:53)
--- NOTE | 2017-04-10 13:59 | PN ---
DATE: 04/08/2017 PSYCHIATRIC PROGRESS NOTE This late entry of date of service 04/08/2017, covers elements not covered in my initial note of 04/08/2017. I met with the patient the evening of 04/08/2017, for this evaluation. Per nursing report, he has been sexually inappropriate, trying to flirt with nursing staff. His gait is better, does redirect. REVIEW OF SYSTEMS: No CV, , pulmonary, eye, ENT system symptoms on review. Reliability poor. He is again wearing his red hat ____ again, quite proud of this. Repeatedly, he is shaking my hand, quite animated. MENTAL STATUS EXAM: Oriented to himself. Insight, judgment, recent and remote memory, attention, concentration, fund of knowledge poor, consistent with his diagnosis mentioned in my initial note. PLAN: Continue psychotropics mentioned in my initial note for now. MAN Diana KEYES MD DR: MARAL/quinton JOB#: [id number] / [id number]
[2017-04-10 16:42] VITALS: BP 123/54
--- NOTE | 2017-04-10 19:52 | PDOC ---
Exam Note: Je Note: Please also refer to the separate dictated note~for this date of service dictated separately.~Patient seen individually. Discussed the patient with Nursing staff reviewed the chart.~Reviewed interim history and current functioning. Reviewed vital signs,~Labs/ Radiology~and current medications noted below. Continue current treatment with the changes noted in the dictated addendum note Assessment: Vital Signs: Vital Signs Date Time Temp Pulse Resp B/P (MAP) Pulse Ox O2 Delivery O2 Flow Rate FiO2 04/10/17 16:42 98.4 88 20 123/54 (77) 91 04/08/17 15:58 Room Air I&O Intake and Output 04/10/17 07:00 Intake Total 840 ml Balance 840 ml Intake Oral 840 ml Current Medications: Meds: Current Medications Influenza Virus Vaccine Quadrival (Fluarix Quad [id number] Syringe) 0.5 ml ONCE ONCE VAX IM ; Start 03/26/17 at 09:00; Stop 03/26/17 at 19:21; Status DC Acetaminophen (Tylenol) 650 mg PRN Q6HRS PRN PO PAIN / TEMP; Start 03/26/17 at 03:00 Multi-Ingredient Ointment (Analgesic [place]) 1 mary PRN QID PRN TP MUSCLE PAIN; Start 03/26/17 at 03:00 Al Hydroxide/Mg Hydroxide (Mylanta Plus Xs) 15 ml PRN AFTMEALHC PRN PO DYSPEPSIA; Start 03/26/17 at 03:00 Magnesium Hydroxide (Milk Of Magnesia) 2,400 mg PRN QHS PRN PO CONSTIPATION; Start 03/26/17 at 03:00 Citalopram Hydrobromide (CeleXA) 10 mg DAILY PO Last administered on 10:37; Start 03/26/17 at 09:00; Stop 03/26/17 at 19:27; Status DC Donepezil HCl (Aricept) 10 mg QHS PO Last administered on 04/09/17 19:21; Start 03/26/17 at 21:00 Memantine (Namenda) 10 mg BID PO Last administered on 04/10/17 07:58; Start 03/26/17 at 09:00 Carbidopa/Levodopa (Sinemet Cr) 1 tab.sa BID PO Last administered on 04/02/17 09:08; Start 03/26/17 at 09:00; Stop 04/02/17 at 19:48; Status DC Levetiracetam (Keppra) 500 mg BID PO Last administered on 03/29/17 07:12; Start 03/26/17 at 09:00; Stop 03/29/17 at 17:44; Status DC Lisinopril (Prinivil) 20 mg DAILY PO Last administered on 04/10/17 07:59; Start 03/26/17 at 09:00 Hydrochlorothiazide (Microzide) 12.5 mg DAILY PO Last administered on 07:58; Start 03/26/17 at 09:00 Fish Oil (Fish Oil) 1,000 mg DAILY PO Last administered on 04/10/17 07:59; Start 03/26/17 at 09:00 Pantoprazole Sodium (Protonix) 40 mg DAILYAC PO Last administered on 07:58; Start 03/26/17 at 07:30 Olanzapine (ZyPREXA ZYDIS) 2.5 mg PRN Q2HR PRN PO PSYCHOSIS Last administered on 04/09/17 15:13; Start 03/26/17 at 06:45 Trazodone HCl (Desyrel) 50 mg QHS PO ; Start 03/26/17 at 21:00; Stop 03/26/17 at 21:00; Status DC Trazodone HCl (Desyrel) 50 mg PRN QHS PRN PO INSOMNIA; Start 03/26/17 at 06:45 ; Stop 03/26/17 at 19:27; Status DC Influenza Virus Vaccine Quadrival (Fluarix Quad [id number] Syringe) 0.5 ml ONCE ONCE VAX IM Last administered on 03/28/17 15:51; Start 03/28/17 at 09:00; Stop 03/28/17 at 09:01; Status DC Trazodone HCl (Desyrel) 100 mg PRN QHS PRN PO INSOMNIA; Start 03/26/17 at 19: 30; Stop 03/26/17 at 19:32; Status DC Trazodone HCl (Desyrel) 100 mg QHS PO ; Start 03/26/17 at 21:00; Stop at 21:00; Status DC Sertraline HCl (Zoloft) 50 mg DAILY PO Last administered on 04/10/17 07:59; Start 03/27/17 at 09:00 Mirtazapine (Remeron) 7.5 mg QHS PO Last administered on 03/30/17 19:38; Start 03/26/17 at 21:00; Stop 03/31/17 at 19:34; Status DC Trazodone HCl (Desyrel) 100 mg QHS PO Last administered on 04/09/17 19:21; Start 03/26/17 at 21:00 Trazodone HCl (Desyrel) 100 mg PRN QHS PRN PO Insomnia Last administered on 21:41; Start 03/26/17 at 19:30 Quetiapine Fumarate (SEROquel) 12.5 mg [id number] PO Last administered on 03/30/17 13:48; Start 03/28/17 at 09:00; Stop 03/31/17 at 02:54; Status DC Quetiapine Fumarate (SEROquel) 25 mg STK-MED ONCE .ROUTE ; Start 03/28/17 at 08: 02; Stop 03/28/17 at 08:03; Status DC Cyanocobalamin (Vitamin B-12) 1,000 mcg [id number] IM Last administered on 15:51; Start 03/28/17 at 14:00 Vitamin D (Vitamin D3) 50,000 unit WEEKLY PO Last administered on 04/04/17 08: 33; Start 03/28/17 at 14:00 Divalproex Sodium (Depakote Er) 500 mg QHS PO Last administered on 04/01/17 18 :38; Start 03/29/17 at 21:00; Stop 04/02/17 at 19:42; Status DC Quetiapine Fumarate (SEROquel) 12.5 mg DAILYWSUP PO ; Start 03/31/17 at 17:00; Stop 03/31/17 at 17:00; Status DC Quetiapine Fumarate (SEROquel) 12.5 mg TID@0900,1400,1700 PO Last administered on 04/10/17 17:53; Start 03/31/17 at 09:00; Stop 04/10/17 at 18:35; Status DC Mirtazapine (Remeron) 15 mg QHS PO Last administered on 04/09/17 19:21; Start 03/31/17 at 21:00 Melatonin 3 mg QHS PO Last administered on 04/09/17 19:21; Start 04/02/17 at 21:00 Divalproex Sodium (Depakote Sprinkles) 500 mg HS PO Last administered on 19:58; Start 04/02/17 at 21:00; Stop 04/05/17 at 11:28; Status DC Carbidopa/Levodopa (Sinemet 25/100) 2 tab BID PO Last administered on 07:58; Start 04/02/17 at 21:00 Magnesium Oxide (Magnesium Oxide) 400 mg BID PO Last administered on 07:59; Start 04/03/17 at 21:00 Medroxyprogesterone Acetate (Provera) 2.5 mg DAILY PO Last administered on 07:59; Start 04/07/17 at 09:00 Quetiapine Fumarate (SEROquel) 12.5 mg DAILY@1400 PO ; Start 04/11/17 at 14:00 Quetiapine Fumarate (SEROquel) 25 mg BID@0900,1700 PO ; Start 04/11/17 at 09:00 Active Scripts Active Reported Prilosec Otc (Omeprazole Magnesium) 20 Mg Tablet.dr 20 Mg PO DAILY [place] 3 1,000 Mg Softgel ([place]-3 Fatty Acids/Fish Oil) 1 Each Capsule 1,000 Mg PO DAILY Namenda (Memantine Hcl) 10 Mg Tablet 10 Mg PO BID Lisinopril 20 Mg Tablet 20 Mg PO DAILY Keppra (Levetiracetam) 500 Mg Tablet 500 Mg PO BID Hydrochlorothiazide Tablet (Hydrochlorothiazide) 12.5 Mg Tablet 12.5 Mg PO DAILY Aricept (Donepezil Hcl) 10 Mg Tablet 10 Mg PO QHS Celexa (Citalopram Hydrobromide) 10 Mg Tablet 10 Mg PO DAILY Sinemet Cr 50-200 Tablet (Carbidopa/Levodopa) 1 Each Tablet.er 1 Tab PO BID I have reviewed the current psychotropics carefully including drug interactions. Risk benefit ratio favors no change other than as noted in my dictated progress note. Diagnosis: Problems: (1) Alzheimer's dementia (2) Anxiety disorder (3) Impulse control disorder (4) Major depressive disorder, recurrent episode (5) Major neurocognitive disorder, due to vascular disease, with behavioral disturbance, mild (6) Parkinson's disease (7) Vascular dementia with behavioral disturbance OSMANY KEYES MD Apr 10, 2017 19:52
[2017-04-10] MEDS: MELATONIN 3 MG TABLET PO SCH (20:11)
[2017-04-10] MEDS: MIRTAZAPINE 15 MG TABLET PO SCH (20:11)
[2017-04-10] MEDS: DONEPEZIL HCL 10 MG TABLET PO SCH (20:11)
[2017-04-10] MEDS: traZODone 100 MG TABLET. PO SCH (20:12)
[2017-04-11 05:42] VITALS: BP 112/70
[2017-04-11] MEDS: hydroCHLOROthiazide 12.5 MG CAPSULE PO SCH (07:40)
[2017-04-11] MEDS: MAGNESIUM OXIDE 400 MG TABLET PO SCH ×2 (07:40→19:41)
[2017-04-11] MEDS: MEMANTINE 10 MG TABLET. PO SCH ×2 (07:40→19:41)
[2017-04-11] MEDS: OMEGA-3 FATTY ACIDS/FISH OIL 1,000 MG CAPSULE. PO SCH (07:40)
[2017-04-11] MEDS: SERTRALINE 50 MG TABLET. PO SCH (07:40)
[2017-04-11] MEDS: CARBIDOPA/LEVODOPA 25/100MG TABLET PO SCH ×2 (07:40→19:41)
[2017-04-11] MEDS: LISINOPRIL 20 MG TABLET PO SCH (07:40)
[2017-04-11] MEDS: PANTOPRAZOLE 40 MG TABLET. PO SCH (07:41)
[2017-04-11] MEDS: QUEtiapine 25 MG TABLET. PO SCH ×3 (07:43→17:29)
[2017-04-11] MEDS: CHOLECALCIFEROL (VITAMIN D3) 50,000 UNIT CAPSULE PO SCH (07:43)
--- NOTE | 2017-04-11 09:35 | PN ---
DATE: 04/09/2017 PSYCHIATRIC PROGRESS NOTE This late entry 04/09/2017 covers elements not covered in my initial note of 04/09/2017. I met with the patient on the evening of 04/09/2017. The patient remains confused, ambulating better on his own, but sexually inappropriate. He goes up to the female nursing staff, touches their arms at times somewhat inappropriately, received Zyprexa in the evening to help with his agitation. REVIEW OF SYSTEMS: No CV, , pulmonary, eye, ENT system symptoms on review. Reliability poor. MENTAL STATUS EXAMINATION: Oriented to himself. Insight, judgment, recent and remote memory, attention, concentration, fund of knowledge poor, consistent with his diagnosis mentioned in my initial note. PLAN: Continue current psychotropics. Reviewed drug interactions. Risk/benefit ratio favors no further change. MAN Diana KEYES MD DR: MARAL/quinton JOB#: [id number] / [id number]
[2017-04-11 16:01] VITALS: BP 124/68
[2017-04-11] MEDS: MELATONIN 3 MG TABLET PO SCH (19:41)
[2017-04-11] MEDS: DONEPEZIL HCL 10 MG TABLET PO SCH (19:41)
[2017-04-11] MEDS: MIRTAZAPINE 15 MG TABLET PO SCH (19:41)
[2017-04-11] MEDS: traZODone 100 MG TABLET. PO SCH (19:41)
--- NOTE | 2017-04-11 19:59 | PDOC ---
Exam Note: Je Note: Please also refer to the separate dictated note~for this date of service dictated separately.~Patient seen individually. Discussed the patient with Nursing staff reviewed the chart.~Reviewed interim history and current functioning. Reviewed vital signs,~Labs/ Radiology~and current medications noted below. Continue current treatment with the changes noted in the dictated addendum note Assessment: Vital Signs: Vital Signs Date Time Temp Pulse Resp B/P (MAP) Pulse Ox O2 Delivery O2 Flow Rate FiO2 04/11/17 16:01 98.5 69 18 124/68 (86) 95 04/08/17 15:58 Room Air I&O Intake and Output 04/11/17 07:00 Intake Total 1080 ml Balance 1080 ml Intake Oral 1080 ml # Bowel Movements 1 Current Medications: Meds: Current Medications Influenza Virus Vaccine Quadrival (Fluarix Quad 3878-5401 Syringe) 0.5 ml ONCE ONCE VAX IM ; Start 03/26/17 at 09:00; Stop 03/26/17 at 19:21; Status DC Acetaminophen (Tylenol) 650 mg PRN Q6HRS PRN PO PAIN / TEMP; Start 03/26/17 at 03:00 Multi-Ingredient Ointment (Analgesic [place]) 1 mary PRN QID PRN TP MUSCLE PAIN; Start 03/26/17 at 03:00 Al Hydroxide/Mg Hydroxide (Mylanta Plus Xs) 15 ml PRN AFTMEALHC PRN PO DYSPEPSIA; Start 03/26/17 at 03:00 Magnesium Hydroxide (Milk Of Magnesia) 2,400 mg PRN QHS PRN PO CONSTIPATION; Start 03/26/17 at 03:00 Citalopram Hydrobromide (CeleXA) 10 mg DAILY PO Last administered on 10:37; Start 03/26/17 at 09:00; Stop 03/26/17 at 19:27; Status DC Donepezil HCl (Aricept) 10 mg QHS PO Last administered on 04/11/17 19:41; Start 03/26/17 at 21:00 Memantine (Namenda) 10 mg BID PO Last administered on 04/11/17 19:41; Start 03/26/17 at 09:00 Carbidopa/Levodopa (Sinemet Cr) 1 tab.sa BID PO Last administered on 11/6/17at 09:08; Start 03/26/17 at 09:00; Stop 04/02/17 at 19:48; Status DC Levetiracetam (Keppra) 500 mg BID PO Last administered on 03/29/17 07:12; Start 03/26/17 at 09:00; Stop 03/29/17 at 17:44; Status DC Lisinopril (Prinivil) 20 mg DAILY PO Last administered on 04/11/17 07:40; Start 03/26/17 at 09:00 Hydrochlorothiazide (Microzide) 12.5 mg DAILY PO Last administered on 07:40; Start 03/26/17 at 09:00 Fish Oil (Fish Oil) 1,000 mg DAILY PO Last administered on 04/11/17 07:40; Start 03/26/17 at 09:00 Pantoprazole Sodium (Protonix) 40 mg DAILYAC PO Last administered on 07:41; Start 03/26/17 at 07:30 Olanzapine (ZyPREXA ZYDIS) 2.5 mg PRN Q2HR PRN PO PSYCHOSIS Last administered on 04/11/17 15:31; Start 03/26/17 at 06:45 Trazodone HCl (Desyrel) 50 mg QHS PO ; Start 03/26/17 at 21:00; Stop 03/26/17 at 21:00; Status DC Trazodone HCl (Desyrel) 50 mg PRN QHS PRN PO INSOMNIA; Start 03/26/17 at 06:45 ; Stop 03/26/17 at 19:27; Status DC Influenza Virus Vaccine Quadrival (Fluarix Quad [id number] Syringe) 0.5 ml ONCE ONCE VAX IM Last administered on 03/28/17 15:51; Start 03/28/17 at 09:00; Stop 03/28/17 at 09:01; Status DC Trazodone HCl (Desyrel) 100 mg PRN QHS PRN PO INSOMNIA; Start 03/26/17 at 19: 30; Stop 03/26/17 at 19:32; Status DC Trazodone HCl (Desyrel) 100 mg QHS PO ; Start 03/26/17 at 21:00; Stop at 21:00; Status DC Sertraline HCl (Zoloft) 50 mg DAILY PO Last administered on 04/11/17 07:40; Start 03/27/17 at 09:00 Mirtazapine (Remeron) 7.5 mg QHS PO Last administered on 03/30/17 19:38; Start 03/26/17 at 21:00; Stop 03/31/17 at 19:34; Status DC Trazodone HCl (Desyrel) 100 mg QHS PO Last administered on 04/11/17 19:41; Start 03/26/17 at 21:00 Trazodone HCl (Desyrel) 100 mg PRN QHS PRN PO Insomnia Last administered on 21:41; Start 03/26/17 at 19:30 Quetiapine Fumarate (SEROquel) 12.5 mg [id number] PO Last administered on 03/30/17 13:48; Start 03/28/17 at 09:00; Stop 03/31/17 at 02:54; Status DC Quetiapine Fumarate (SEROquel) 25 mg STK-MED ONCE .ROUTE ; Start 03/28/17 at 08: 02; Stop 03/28/17 at 08:03; Status DC Cyanocobalamin (Vitamin B-12) 1,000 mcg [id number] IM Last administered on 15:51; Start 03/28/17 at 14:00 Vitamin D (Vitamin D3) 50,000 unit WEEKLY PO Last administered on 04/11/17 07 :43; Start 03/28/17 at 14:00 Divalproex Sodium (Depakote Er) 500 mg QHS PO Last administered on 04/01/17 18 :38; Start 03/29/17 at 21:00; Stop 04/02/17 at 19:42; Status DC Quetiapine Fumarate (SEROquel) 12.5 mg DAILYWSUP PO ; Start 03/31/17 at 17:00; Stop 03/31/17 at 17:00; Status DC Quetiapine Fumarate (SEROquel) 12.5 mg TID@0900,1400,1700 PO Last administered on 04/10/17 17:53; Start 03/31/17 at 09:00; Stop 04/10/17 at 18:35; Status DC Mirtazapine (Remeron) 15 mg QHS PO Last administered on 04/11/17 19:41; Start 03/31/17 at 21:00 Melatonin 3 mg QHS PO Last administered on 04/11/17 19:41; Start 04/02/17 at 21:00 Divalproex Sodium (Depakote Sprinkles) 500 mg HS PO Last administered on 19:58; Start 04/02/17 at 21:00; Stop 04/05/17 at 11:28; Status DC Carbidopa/Levodopa (Sinemet 25/100) 2 tab BID PO Last administered on 19:41; Start 04/02/17 at 21:00 Magnesium Oxide (Magnesium Oxide) 400 mg BID PO Last administered on 19:41; Start 04/03/17 at 21:00 Medroxyprogesterone Acetate (Provera) 2.5 mg DAILY PO Last administered on 20:11; Start 04/07/17 at 09:00 Quetiapine Fumarate (SEROquel) 12.5 mg DAILY@1400 PO Last administered on 04/11 12:59; Start 04/11/17 at 14:00 Quetiapine Fumarate (SEROquel) 25 mg BID@0900,1700 PO Last administered on 17:29; Start 04/11/17 at 09:00 Active Scripts Active Reported Prilosec Otc (Omeprazole Magnesium) 20 Mg Tablet.dr 20 Mg PO DAILY [place] 3 1,000 Mg Softgel ([place]-3 Fatty Acids/Fish Oil) 1 Each Capsule 1,000 Mg PO DAILY Namenda (Memantine Hcl) 10 Mg Tablet 10 Mg PO BID Lisinopril 20 Mg Tablet 20 Mg PO DAILY Keppra (Levetiracetam) 500 Mg Tablet 500 Mg PO BID Hydrochlorothiazide Tablet (Hydrochlorothiazide) 12.5 Mg Tablet 12.5 Mg PO DAILY Aricept (Donepezil Hcl) 10 Mg Tablet 10 Mg PO QHS Celexa (Citalopram Hydrobromide) 10 Mg Tablet 10 Mg PO DAILY Sinemet Cr 50-200 Tablet (Carbidopa/Levodopa) 1 Each Tablet.er 1 Tab PO BID I have reviewed the current psychotropics carefully including drug interactions. Risk benefit ratio favors no change other than as noted in my dictated progress note. Diagnosis: Problems: (1) Alzheimer's dementia (2) Anxiety disorder (3) Impulse control disorder (4) Major depressive disorder, recurrent episode (5) Major neurocognitive disorder, due to vascular disease, with behavioral disturbance, mild (6) Parkinson's disease (7) Vascular dementia with behavioral disturbance OSMANY KEYES MD Apr 11, 2017 19:59
[2017-04-12 05:45] VITALS: BP 124/76
--- NOTE | 2017-04-12 06:13 | PN ---
DATE: 04/10/2017 PSYCHIATRIC PROGRESS NOTE This late entry 04/10/2017 covers elements, not covered in my initial note of 04/10/2017. I met with the patient in the evening of 04/10/2017. The patient has been somewhat delusional, agitated, anxious, restless, distractible, making sexually inappropriate comments to nursing staff, slept 8-1/2 hours previous evening. REVIEW OF SYSTEMS: No CV, , pulmonary, eye, ENT system symptoms on review. Reliability poor. MENTAL STATUS EXAM: Oriented to himself. Insight, judgment, recent and remote memory, attention, concentration, fund of knowledge poor, consistent with his diagnosis mentioned in my initial note. PLAN: Increase the Seroquel from 12.5 mg t.i.d. to 25 mg in the morning and 1700 and 12.5 continue at 2:00 p.m. Maintain the rest of the psychotropics unchanged noted in my initial note. MAN Diana KEYES MD DR: MARAL/quinton JOB#: [id number] / [id number]
[2017-04-12] MEDS: MEMANTINE 10 MG TABLET. PO SCH ×2 (08:03→19:16)
[2017-04-12] MEDS: QUEtiapine 25 MG TABLET. PO SCH ×3 (08:03→16:27)
[2017-04-12] MEDS: PANTOPRAZOLE 40 MG TABLET. PO SCH (08:03)
[2017-04-12] MEDS: CARBIDOPA/LEVODOPA 25/100MG TABLET PO SCH ×2 (08:03→19:16)
[2017-04-12] MEDS: hydroCHLOROthiazide 12.5 MG CAPSULE PO SCH (08:04)
[2017-04-12] MEDS: SERTRALINE 50 MG TABLET. PO SCH (08:04)
[2017-04-12] MEDS: MAGNESIUM OXIDE 400 MG TABLET PO SCH ×2 (08:04→19:16)
[2017-04-12] MEDS: OMEGA-3 FATTY ACIDS/FISH OIL 1,000 MG CAPSULE. PO SCH (08:04)
[2017-04-12] MEDS: LISINOPRIL 20 MG TABLET PO SCH (08:04)
[2017-04-12 16:51] VITALS: BP 123/63
[2017-04-12] MEDS: DONEPEZIL HCL 10 MG TABLET PO SCH (19:16)
[2017-04-12] MEDS: traZODone 100 MG TABLET. PO SCH (19:16)
[2017-04-12] MEDS: MIRTAZAPINE 15 MG TABLET PO SCH (19:16)
[2017-04-12] MEDS: MELATONIN 3 MG TABLET PO SCH (19:16)
--- NOTE | 2017-04-12 20:16 | PDOC ---
Exam Note: Je Note: Please also refer to the separate dictated note~for this date of service dictated separately.~Patient seen individually. Discussed the patient with Nursing staff reviewed the chart.~Reviewed interim history and current functioning. Reviewed vital signs,~Labs/ Radiology~and current medications noted below. Continue current treatment with the changes noted in the dictated addendum note Assessment: Vital Signs: Vital Signs Date Time Temp Pulse Resp B/P (MAP) Pulse Ox O2 Delivery O2 Flow Rate FiO2 04/12/17 16:51 97.9 84 16 123/63 (83) 96 Room Air I&O Intake and Output 04/12/17 07:00 Intake Total 1400 ml Balance 1400 ml Intake Oral 1400 ml Current Medications: Meds: Current Medications Influenza Virus Vaccine Quadrival (Fluarix Quad [id number] Syringe) 0.5 ml ONCE ONCE VAX IM ; Start 03/26/17 at 09:00; Stop 03/26/17 at 19:21; Status DC Acetaminophen (Tylenol) 650 mg PRN Q6HRS PRN PO PAIN / TEMP; Start 03/26/17 at 03:00 Multi-Ingredient Ointment (Analgesic [place]) 1 mary PRN QID PRN TP MUSCLE PAIN; Start 03/26/17 at 03:00 Al Hydroxide/Mg Hydroxide (Mylanta Plus Xs) 15 ml PRN AFTMEALHC PRN PO DYSPEPSIA; Start 03/26/17 at 03:00 Magnesium Hydroxide (Milk Of Magnesia) 2,400 mg PRN QHS PRN PO CONSTIPATION Last administered on 04/12/17 16:27; Start 03/26/17 at 03:00 Citalopram Hydrobromide (CeleXA) 10 mg DAILY PO Last administered on 10:37; Start 03/26/17 at 09:00; Stop 03/26/17 at 19:27; Status DC Donepezil HCl (Aricept) 10 mg QHS PO Last administered on 04/12/17 19:16; Start 03/26/17 at 21:00 Memantine (Namenda) 10 mg BID PO Last administered on 04/12/17 19:16; Start 03/26/17 at 09:00 Carbidopa/Levodopa (Sinemet Cr) 1 tab.sa BID PO Last administered on 11/6/17at 09:08; Start 03/26/17 at 09:00; Stop 04/02/17 at 19:48; Status DC Levetiracetam (Keppra) 500 mg BID PO Last administered on 03/29/17 07:12; Start 03/26/17 at 09:00; Stop 03/29/17 at 17:44; Status DC Lisinopril (Prinivil) 20 mg DAILY PO Last administered on 04/12/17 08:04; Start 03/26/17 at 09:00 Hydrochlorothiazide (Microzide) 12.5 mg DAILY PO Last administered on 08:04; Start 03/26/17 at 09:00 Fish Oil (Fish Oil) 1,000 mg DAILY PO Last administered on 04/12/17 08:04; Start 03/26/17 at 09:00 Pantoprazole Sodium (Protonix) 40 mg DAILYAC PO Last administered on 08:03; Start 03/26/17 at 07:30 Olanzapine (ZyPREXA ZYDIS) 2.5 mg PRN Q2HR PRN PO PSYCHOSIS Last administered on 04/11/17 15:31; Start 03/26/17 at 06:45 Trazodone HCl (Desyrel) 50 mg QHS PO ; Start 03/26/17 at 21:00; Stop 03/26/17 at 21:00; Status DC Trazodone HCl (Desyrel) 50 mg PRN QHS PRN PO INSOMNIA; Start 03/26/17 at 06:45 ; Stop 03/26/17 at 19:27; Status DC Influenza Virus Vaccine Quadrival (Fluarix Quad [id number] Syringe) 0.5 ml ONCE ONCE VAX IM Last administered on 03/28/17 15:51; Start 03/28/17 at 09:00; Stop 03/28/17 at 09:01; Status DC Trazodone HCl (Desyrel) 100 mg PRN QHS PRN PO INSOMNIA; Start 03/26/17 at 19: 30; Stop 03/26/17 at 19:32; Status DC Trazodone HCl (Desyrel) 100 mg QHS PO ; Start 03/26/17 at 21:00; Stop at 21:00; Status DC Sertraline HCl (Zoloft) 50 mg DAILY PO Last administered on 04/12/17 08:04; Start 03/27/17 at 09:00 Mirtazapine (Remeron) 7.5 mg QHS PO Last administered on 03/30/17 19:38; Start 03/26/17 at 21:00; Stop 03/31/17 at 19:34; Status DC Trazodone HCl (Desyrel) 100 mg QHS PO Last administered on 04/12/17 19:16; Start 03/26/17 at 21:00 Trazodone HCl (Desyrel) 100 mg PRN QHS PRN PO Insomnia Last administered on 21:41; Start 03/26/17 at 19:30 Quetiapine Fumarate (SEROquel) 12.5 mg [id number] PO Last administered on 03/30/17 13:48; Start 03/28/17 at 09:00; Stop 03/31/17 at 02:54; Status DC Quetiapine Fumarate (SEROquel) 25 mg STK-MED ONCE .ROUTE ; Start 03/28/17 at 08: 02; Stop 03/28/17 at 08:03; Status DC Cyanocobalamin (Vitamin B-12) 1,000 mcg [id number] IM Last administered on 15:51; Start 03/28/17 at 14:00 Vitamin D (Vitamin D3) 50,000 unit WEEKLY PO Last administered on 04/11/17 07 :43; Start 03/28/17 at 14:00 Divalproex Sodium (Depakote Er) 500 mg QHS PO Last administered on 04/01/17 18 :38; Start 03/29/17 at 21:00; Stop 04/02/17 at 19:42; Status DC Quetiapine Fumarate (SEROquel) 12.5 mg DAILYWSUP PO ; Start 03/31/17 at 17:00; Stop 03/31/17 at 17:00; Status DC Quetiapine Fumarate (SEROquel) 12.5 mg TID@0900,1400,1700 PO Last administered on 04/10/17 17:53; Start 03/31/17 at 09:00; Stop 04/10/17 at 18:35; Status DC Mirtazapine (Remeron) 15 mg QHS PO Last administered on 04/12/17 19:16; Start 03/31/17 at 21:00 Melatonin 3 mg QHS PO Last administered on 04/12/17 19:16; Start 04/02/17 at 21:00 Divalproex Sodium (Depakote Sprinkles) 500 mg HS PO Last administered on 19:58; Start 04/02/17 at 21:00; Stop 04/05/17 at 11:28; Status DC Carbidopa/Levodopa (Sinemet 25/100) 2 tab BID PO Last administered on 19:16; Start 04/02/17 at 21:00 Magnesium Oxide (Magnesium Oxide) 400 mg BID PO Last administered on 19:16; Start 04/03/17 at 21:00 Medroxyprogesterone Acetate (Provera) 2.5 mg DAILY PO Last administered on 08:03; Start 04/07/17 at 09:00 Quetiapine Fumarate (SEROquel) 12.5 mg DAILY@1400 PO Last administered on 04/12 14:02; Start 04/11/17 at 14:00 Quetiapine Fumarate (SEROquel) 25 mg BID@0900,1700 PO Last administered on 16:27; Start 04/11/17 at 09:00 Active Scripts Active Reported Prilosec Otc (Omeprazole Magnesium) 20 Mg Tablet.dr 20 Mg PO DAILY [place] 3 1,000 Mg Softgel ([place]-3 Fatty Acids/Fish Oil) 1 Each Capsule 1,000 Mg PO DAILY Namenda (Memantine Hcl) 10 Mg Tablet 10 Mg PO BID Lisinopril 20 Mg Tablet 20 Mg PO DAILY Keppra (Levetiracetam) 500 Mg Tablet 500 Mg PO BID Hydrochlorothiazide Tablet (Hydrochlorothiazide) 12.5 Mg Tablet 12.5 Mg PO DAILY Aricept (Donepezil Hcl) 10 Mg Tablet 10 Mg PO QHS Celexa (Citalopram Hydrobromide) 10 Mg Tablet 10 Mg PO DAILY Sinemet Cr 50-200 Tablet (Carbidopa/Levodopa) 1 Each Tablet.er 1 Tab PO BID I have reviewed the current psychotropics carefully including drug interactions. Risk benefit ratio favors no change other than as noted in my dictated progress note. Diagnosis: Problems: (1) Alzheimer's dementia (2) Anxiety disorder (3) Impulse control disorder (4) Major depressive disorder, recurrent episode (5) Major neurocognitive disorder, due to vascular disease, with behavioral disturbance, mild (6) Parkinson's disease (7) Vascular dementia with behavioral disturbance OSMANY KEYES MD Apr 12, 2017 20:16
[2017-04-13 05:55] VITALS: BP 128/72
[2017-04-13] MEDS: CARBIDOPA/LEVODOPA 25/100MG TABLET PO SCH ×2 (08:11→19:28)
[2017-04-13] MEDS: SERTRALINE 50 MG TABLET. PO SCH (08:12)
[2017-04-13] MEDS: LISINOPRIL 20 MG TABLET PO SCH (08:12)
[2017-04-13] MEDS: QUEtiapine 25 MG TABLET. PO SCH ×4 (08:12→16:57)
[2017-04-13] MEDS: PANTOPRAZOLE 40 MG TABLET. PO SCH (08:12)
[2017-04-13] MEDS: MEMANTINE 10 MG TABLET. PO SCH ×2 (08:12→19:28)
[2017-04-13] MEDS: OMEGA-3 FATTY ACIDS/FISH OIL 1,000 MG CAPSULE. PO SCH (08:12)
[2017-04-13] MEDS: MAGNESIUM OXIDE 400 MG TABLET PO SCH ×2 (08:13→19:28)
[2017-04-13] MEDS: hydroCHLOROthiazide 12.5 MG CAPSULE PO SCH (08:13)
[2017-04-13 16:04] VITALS: BP 128/61
[2017-04-13] MEDS: MIRTAZAPINE 15 MG TABLET PO SCH (19:27)
[2017-04-13] MEDS: DONEPEZIL HCL 10 MG TABLET PO SCH (19:28)
[2017-04-13] MEDS: traZODone 100 MG TABLET. PO SCH (19:28)
[2017-04-13] MEDS: MELATONIN 3 MG TABLET PO SCH (19:29)
--- NOTE | 2017-04-13 20:00 | PDOC ---
Exam Note: Je Note: Please also refer to the separate dictated note~for this date of service dictated separately.~Patient seen individually. Discussed the patient with Nursing staff reviewed the chart.~Reviewed interim history and current functioning. Reviewed vital signs,~Labs/ Radiology~and current medications noted below. Continue current treatment with the changes noted in the dictated addendum note Assessment: Vital Signs: Vital Signs Date Time Temp Pulse Resp B/P (MAP) Pulse Ox O2 Delivery O2 Flow Rate FiO2 04/13/17 16:04 97.6 61 18 128/61 (83) 96 Room Air I&O Intake and Output 04/13/17 07:00 Intake Total 1860 ml Balance 1860 ml Intake Oral 1860 ml # Voids 2 # Bowel Movements 1 Current Medications: Meds: Current Medications Influenza Virus Vaccine Quadrival (Fluarix Quad [id number] Syringe) 0.5 ml ONCE ONCE VAX IM ; Start 03/26/17 at 09:00; Stop 03/26/17 at 19:21; Status DC Acetaminophen (Tylenol) 650 mg PRN Q6HRS PRN PO PAIN / TEMP; Start 03/26/17 at 03:00 Multi-Ingredient Ointment (Analgesic [place]) 1 mary PRN QID PRN TP MUSCLE PAIN; Start 03/26/17 at 03:00 Al Hydroxide/Mg Hydroxide (Mylanta Plus Xs) 15 ml PRN AFTMEALHC PRN PO DYSPEPSIA; Start 03/26/17 at 03:00 Magnesium Hydroxide (Milk Of Magnesia) 2,400 mg PRN QHS PRN PO CONSTIPATION Last administered on 04/12/17 16:27; Start 03/26/17 at 03:00 Citalopram Hydrobromide (CeleXA) 10 mg DAILY PO Last administered on 10:37; Start 03/26/17 at 09:00; Stop 03/26/17 at 19:27; Status DC Donepezil HCl (Aricept) 10 mg QHS PO Last administered on 04/13/17 19:28; Start 03/26/17 at 21:00 Memantine (Namenda) 10 mg BID PO Last administered on 04/13/17 19:28; Start 03/26/17 at 09:00 Carbidopa/Levodopa (Sinemet Cr) 1 tab.sa BID PO Last administered on 04/02/17 09:08; Start 03/26/17 at 09:00; Stop 04/02/17 at 19:48; Status DC Levetiracetam (Keppra) 500 mg BID PO Last administered on 03/29/17 07:12; Start 03/26/17 at 09:00; Stop 03/29/17 at 17:44; Status DC Lisinopril (Prinivil) 20 mg DAILY PO Last administered on 04/13/17 08:12; Start 03/26/17 at 09:00 Hydrochlorothiazide (Microzide) 12.5 mg DAILY PO Last administered on 08:13; Start 03/26/17 at 09:00 Fish Oil (Fish Oil) 1,000 mg DAILY PO Last administered on 04/13/17 08:12; Start 03/26/17 at 09:00 Pantoprazole Sodium (Protonix) 40 mg DAILYAC PO Last administered on 08:12; Start 03/26/17 at 07:30 Olanzapine (ZyPREXA ZYDIS) 2.5 mg PRN Q2HR PRN PO PSYCHOSIS Last administered on 04/11/17 15:31; Start 03/26/17 at 06:45 Trazodone HCl (Desyrel) 50 mg QHS PO ; Start 03/26/17 at 21:00; Stop 03/26/17 at 21:00; Status DC Trazodone HCl (Desyrel) 50 mg PRN QHS PRN PO INSOMNIA; Start 03/26/17 at 06:45 ; Stop 03/26/17 at 19:27; Status DC Influenza Virus Vaccine Quadrival (Fluarix Quad [id number] Syringe) 0.5 ml ONCE ONCE VAX IM Last administered on 03/28/17 15:51; Start 03/28/17 at 09:00; Stop 03/28/17 at 09:01; Status DC Trazodone HCl (Desyrel) 100 mg PRN QHS PRN PO INSOMNIA; Start 03/26/17 at 19: 30; Stop 03/26/17 at 19:32; Status DC Trazodone HCl (Desyrel) 100 mg QHS PO ; Start 03/26/17 at 21:00; Stop at 21:00; Status DC Sertraline HCl (Zoloft) 50 mg DAILY PO Last administered on 04/13/17 08:12; Start 03/27/17 at 09:00 Mirtazapine (Remeron) 7.5 mg QHS PO Last administered on 03/30/17 19:38; Start 03/26/17 at 21:00; Stop 03/31/17 at 19:34; Status DC Trazodone HCl (Desyrel) 100 mg QHS PO Last administered on 04/13/17 19:28; Start 03/26/17 at 21:00 Trazodone HCl (Desyrel) 100 mg PRN QHS PRN PO Insomnia Last administered on 21:41; Start 03/26/17 at 19:30 Quetiapine Fumarate (SEROquel) 12.5 mg BID92 PO Last administered on 03/30/17 13:48; Start 03/28/17 at 09:00; Stop 03/31/17 at 02:54; Status DC Quetiapine Fumarate (SEROquel) 25 mg STK-MED ONCE .ROUTE ; Start 03/28/17 at 08: 02; Stop 03/28/17 at 08:03; Status DC Cyanocobalamin (Vitamin B-12) 1,000 mcg [id number] IM Last administered on 15:51; Start 03/28/17 at 14:00 Vitamin D (Vitamin D3) 50,000 unit WEEKLY PO Last administered on 04/11/17 07 :43; Start 03/28/17 at 14:00 Divalproex Sodium (Depakote Er) 500 mg QHS PO Last administered on 04/01/17 18 :38; Start 03/29/17 at 21:00; Stop 04/02/17 at 19:42; Status DC Quetiapine Fumarate (SEROquel) 12.5 mg DAILYWSUP PO ; Start 03/31/17 at 17:00; Stop 03/31/17 at 17:00; Status DC Quetiapine Fumarate (SEROquel) 12.5 mg TID@0900,1400,1700 PO Last administered on 04/10/17 17:53; Start 03/31/17 at 09:00; Stop 04/10/17 at 18:35; Status DC Mirtazapine (Remeron) 15 mg QHS PO Last administered on 04/13/17 19:27; Start 03/31/17 at 21:00 Melatonin 3 mg QHS PO Last administered on 04/13/17 19:29; Start 04/02/17 at 21:00 Divalproex Sodium (Depakote Sprinkles) 500 mg HS PO Last administered on 19:58; Start 04/02/17 at 21:00; Stop 04/05/17 at 11:28; Status DC Carbidopa/Levodopa (Sinemet 25/100) 2 tab BID PO Last administered on 19:28; Start 04/02/17 at 21:00 Magnesium Oxide (Magnesium Oxide) 400 mg BID PO Last administered on 19:28; Start 04/03/17 at 21:00 Medroxyprogesterone Acetate (Provera) 2.5 mg DAILY PO Last administered on 08:13; Start 04/07/17 at 09:00 Quetiapine Fumarate (SEROquel) 12.5 mg DAILY@1400 PO Last administered on 04/12 14:02; Start 04/11/17 at 14:00 Quetiapine Fumarate (SEROquel) 25 mg BID@0900,1700 PO Last administered on 16:57; Start 04/11/17 at 09:00 Active Scripts Active Reported Prilosec Otc (Omeprazole Magnesium) 20 Mg Tablet.dr 20 Mg PO DAILY [place] 3 1,000 Mg Softgel ([place]-3 Fatty Acids/Fish Oil) 1 Each Capsule 1,000 Mg PO DAILY Namenda (Memantine Hcl) 10 Mg Tablet 10 Mg PO BID Lisinopril 20 Mg Tablet 20 Mg PO DAILY Keppra (Levetiracetam) 500 Mg Tablet 500 Mg PO BID Hydrochlorothiazide Tablet (Hydrochlorothiazide) 12.5 Mg Tablet 12.5 Mg PO DAILY Aricept (Donepezil Hcl) 10 Mg Tablet 10 Mg PO QHS Celexa (Citalopram Hydrobromide) 10 Mg Tablet 10 Mg PO DAILY Sinemet Cr 50-200 Tablet (Carbidopa/Levodopa) 1 Each Tablet.er 1 Tab PO BID I have reviewed the current psychotropics carefully including drug interactions. Risk benefit ratio favors no change other than as noted in my dictated progress note. Diagnosis: Problems: (1) Alzheimer's dementia (2) Anxiety disorder (3) Impulse control disorder (4) Major depressive disorder, recurrent episode (5) Major neurocognitive disorder, due to vascular disease, with behavioral disturbance, mild (6) Parkinson's disease (7) Vascular dementia with behavioral disturbance OSMANY KEYES MD Apr 13, 2017 20:00
--- NOTE | 2017-04-14 05:09 | PN ---
DATE: 04/11/2017 This is a late entry 04/11, covers elements not covered in my initial note 04/11. SUBJECTIVE: I met with the patient evening of 04/11. The patient slept 6-3/4 hours previous evening, gets agitated, anxious, somewhat paranoid, received Zyprexa at 1530. He was pacing angry then did better after the p.r.n., believing people are living in his home. REVIEW OF SYSTEMS: No CV, , pulmonary, eye, ENT system symptoms on review. Reliability poor. MENTAL STATUS EXAM: Oriented to himself. Insight, judgment, recent and remote memory, attention, concentration, fund of knowledge poor, consistent with his diagnosis mentioned in my initial note. PLAN: No change in psychotropics as mentioned in my initial note. MAN Diana KEYES MD DR: MARAL/quinton JOB#: [id number] / [id number]
--- NOTE | 2017-04-14 05:12 | PN ---
DATE: 04/12/2017 This is a late entry 04/12, covers elements not covered in my initial note 04/12 SUBJECTIVE: The patient was staffed at a treatment team meeting with the entire team in the morning and seen individually in the evening. He remains confused, gets a little anxious, paranoid at times, but redirects, not aggressive. REVIEW OF SYSTEMS: No CV, , pulmonary, eye, ENT system symptoms on review. He followed me around the unit as I went on rounds even after I met with him individually. MENTAL STATUS EXAM: Oriented to himself. Insight, judgment, recent and remote memory, attention, concentration, fund of knowledge poor, consistent with his diagnosis mentioned in my initial note. PLAN: No change in psychotropics from my initial note. MAN Diana KEYES MD DR: MARAL/quinton JOB#: [id number] / [id number]
[2017-04-14 05:47] VITALS: BP 136/72
[2017-04-14] MEDS: CARBIDOPA/LEVODOPA 25/100MG TABLET PO SCH ×2 (07:29→19:32)
[2017-04-14] MEDS: OMEGA-3 FATTY ACIDS/FISH OIL 1,000 MG CAPSULE. PO SCH (07:30)
[2017-04-14] MEDS: MEMANTINE 10 MG TABLET. PO SCH ×2 (07:30→19:32)
[2017-04-14] MEDS: hydroCHLOROthiazide 12.5 MG CAPSULE PO SCH (07:30)
[2017-04-14] MEDS: LISINOPRIL 20 MG TABLET PO SCH (07:30)
[2017-04-14] MEDS: SERTRALINE 50 MG TABLET. PO SCH (07:30)
[2017-04-14] MEDS: QUEtiapine 25 MG TABLET. PO SCH ×3 (07:30→17:32)
[2017-04-14] MEDS: PANTOPRAZOLE 40 MG TABLET. PO SCH (07:31)
[2017-04-14] MEDS: MAGNESIUM OXIDE 400 MG TABLET PO SCH ×2 (07:31→19:32)
[2017-04-14 15:57] VITALS: BP 121/65
[2017-04-14] MEDS: traZODone 100 MG TABLET. PO SCH (19:32)
[2017-04-14] MEDS: MIRTAZAPINE 15 MG TABLET PO SCH (19:32)
[2017-04-14] MEDS: MELATONIN 3 MG TABLET PO SCH (19:32)
[2017-04-14] MEDS: DONEPEZIL HCL 10 MG TABLET PO SCH (19:32)
--- NOTE | 2017-04-14 21:11 | PDOC ---
Exam Note: Je Note: Please also refer to the separate dictated note~for this date of service dictated separately.~Patient seen individually. Discussed the patient with Nursing staff reviewed the chart.~Reviewed interim history and current functioning. Reviewed vital signs,~Labs/ Radiology~and current medications noted below. Continue current treatment with the changes noted in the dictated addendum note Assessment: Vital Signs: Vital Signs Date Time Temp Pulse Resp B/P (MAP) Pulse Ox O2 Delivery O2 Flow Rate FiO2 04/14/17 15:57 98.0 68 18 121/65 (83) 97 04/13/17 16:04 Room Air I&O Intake and Output 04/14/17 07:00 Intake Total 1200 ml Balance 1200 ml Intake Oral 1200 ml # Bowel Movements 2 Current Medications: Meds: Current Medications Influenza Virus Vaccine Quadrival (Fluarix Quad 4094-7939 Syringe) 0.5 ml ONCE ONCE VAX IM ; Start 03/26/17 at 09:00; Stop 03/26/17 at 19:21; Status DC Acetaminophen (Tylenol) 650 mg PRN Q6HRS PRN PO PAIN / TEMP; Start 03/26/17 at 03:00 Multi-Ingredient Ointment (Analgesic [place]) 1 mary PRN QID PRN TP MUSCLE PAIN; Start 03/26/17 at 03:00 Al Hydroxide/Mg Hydroxide (Mylanta Plus Xs) 15 ml PRN AFTMEALHC PRN PO DYSPEPSIA; Start 03/26/17 at 03:00 Magnesium Hydroxide (Milk Of Magnesia) 2,400 mg PRN QHS PRN PO CONSTIPATION Last administered on 04/12/17 16:27; Start 03/26/17 at 03:00 Citalopram Hydrobromide (CeleXA) 10 mg DAILY PO Last administered on 10:37; Start 03/26/17 at 09:00; Stop 03/26/17 at 19:27; Status DC Donepezil HCl (Aricept) 10 mg QHS PO Last administered on 04/14/17 19:32; Start 03/26/17 at 21:00 Memantine (Namenda) 10 mg BID PO Last administered on 04/14/17 19:32; Start 03/26/17 at 09:00 Carbidopa/Levodopa (Sinemet Cr) 1 tab.sa BID PO Last administered on 04/02/17 09:08; Start 03/26/17 at 09:00; Stop 04/02/17 at 19:48; Status DC Levetiracetam (Keppra) 500 mg BID PO Last administered on 03/29/17 07:12; Start 03/26/17 at 09:00; Stop 03/29/17 at 17:44; Status DC Lisinopril (Prinivil) 20 mg DAILY PO Last administered on 04/14/17 07:30; Start 03/26/17 at 09:00 Hydrochlorothiazide (Microzide) 12.5 mg DAILY PO Last administered on 07:30; Start 03/26/17 at 09:00 Fish Oil (Fish Oil) 1,000 mg DAILY PO Last administered on 04/14/17 07:30; Start 03/26/17 at 09:00 Pantoprazole Sodium (Protonix) 40 mg DAILYAC PO Last administered on 07:31; Start 03/26/17 at 07:30 Olanzapine (ZyPREXA ZYDIS) 2.5 mg PRN Q2HR PRN PO PSYCHOSIS Last administered on 04/14/17 19:32; Start 03/26/17 at 06:45 Trazodone HCl (Desyrel) 50 mg QHS PO ; Start 03/26/17 at 21:00; Stop 03/26/17 at 21:00; Status DC Trazodone HCl (Desyrel) 50 mg PRN QHS PRN PO INSOMNIA; Start 03/26/17 at 06:45 ; Stop 03/26/17 at 19:27; Status DC Influenza Virus Vaccine Quadrival (Fluarix Quad 3143-9120 Syringe) 0.5 ml ONCE ONCE VAX IM Last administered on 03/28/17 15:51; Start 03/28/17 at 09:00; Stop 03/28/17 at 09:01; Status DC Trazodone HCl (Desyrel) 100 mg PRN QHS PRN PO INSOMNIA; Start 03/26/17 at 19: 30; Stop 03/26/17 at 19:32; Status DC Trazodone HCl (Desyrel) 100 mg QHS PO ; Start 03/26/17 at 21:00; Stop at 21:00; Status DC Sertraline HCl (Zoloft) 50 mg DAILY PO Last administered on 04/14/17 07:30; Start 03/27/17 at 09:00 Mirtazapine (Remeron) 7.5 mg QHS PO Last administered on 03/30/17 19:38; Start 03/26/17 at 21:00; Stop 03/31/17 at 19:34; Status DC Trazodone HCl (Desyrel) 100 mg QHS PO Last administered on 04/14/17 19:32; Start 03/26/17 at 21:00 Trazodone HCl (Desyrel) 100 mg PRN QHS PRN PO Insomnia Last administered on 21:41; Start 03/26/17 at 19:30 Quetiapine Fumarate (SEROquel) 12.5 mg [id number] PO Last administered on 03/30/17 13:48; Start 03/28/17 at 09:00; Stop 03/31/17 at 02:54; Status DC Quetiapine Fumarate (SEROquel) 25 mg STK-MED ONCE .ROUTE ; Start 03/28/17 at 08: 02; Stop 03/28/17 at 08:03; Status DC Cyanocobalamin (Vitamin B-12) 1,000 mcg [id number] IM Last administered on 15:51; Start 03/28/17 at 14:00 Vitamin D (Vitamin D3) 50,000 unit WEEKLY PO Last administered on 04/11/17 07 :43; Start 03/28/17 at 14:00 Divalproex Sodium (Depakote Er) 500 mg QHS PO Last administered on 04/01/17 18 :38; Start 03/29/17 at 21:00; Stop 04/02/17 at 19:42; Status DC Quetiapine Fumarate (SEROquel) 12.5 mg DAILYWSUP PO ; Start 03/31/17 at 17:00; Stop 03/31/17 at 17:00; Status DC Quetiapine Fumarate (SEROquel) 12.5 mg TID@0900,1400,1700 PO Last administered on 04/10/17 17:53; Start 03/31/17 at 09:00; Stop 04/10/17 at 18:35; Status DC Mirtazapine (Remeron) 15 mg QHS PO Last administered on 04/14/17 19:32; Start 03/31/17 at 21:00 Melatonin 3 mg QHS PO Last administered on 04/14/17 19:32; Start 04/02/17 at 21:00 Divalproex Sodium (Depakote Sprinkles) 500 mg HS PO Last administered on 19:58; Start 04/02/17 at 21:00; Stop 04/05/17 at 11:28; Status DC Carbidopa/Levodopa (Sinemet 25/100) 2 tab BID PO Last administered on 19:32; Start 04/02/17 at 21:00 Magnesium Oxide (Magnesium Oxide) 400 mg BID PO Last administered on 19:32; Start 04/03/17 at 21:00 Medroxyprogesterone Acetate (Provera) 2.5 mg DAILY PO Last administered on 07:30; Start 04/07/17 at 09:00; Stop 04/14/17 at 18:45; Status DC Quetiapine Fumarate (SEROquel) 12.5 mg DAILY@1400 PO Last administered on 04/14 14:35; Start 04/11/17 at 14:00 Quetiapine Fumarate (SEROquel) 25 mg BID@0900,1700 PO Last administered on 17:32; Start 04/11/17 at 09:00 Medroxyprogesterone Acetate (Provera) 5 mg DAILY PO ; Start 04/15/17 at 09:00 Active Scripts Active Reported Prilosec Otc (Omeprazole Magnesium) 20 Mg Tablet.dr 20 Mg PO DAILY [place] 3 1,000 Mg Softgel ([place]-3 Fatty Acids/Fish Oil) 1 Each Capsule 1,000 Mg PO DAILY Namenda (Memantine Hcl) 10 Mg Tablet 10 Mg PO BID Lisinopril 20 Mg Tablet 20 Mg PO DAILY Keppra (Levetiracetam) 500 Mg Tablet 500 Mg PO BID Hydrochlorothiazide Tablet (Hydrochlorothiazide) 12.5 Mg Tablet 12.5 Mg PO DAILY Aricept (Donepezil Hcl) 10 Mg Tablet 10 Mg PO QHS Celexa (Citalopram Hydrobromide) 10 Mg Tablet 10 Mg PO DAILY Sinemet Cr 50-200 Tablet (Carbidopa/Levodopa) 1 Each Tablet.er 1 Tab PO BID I have reviewed the current psychotropics carefully including drug interactions. Risk benefit ratio favors no change other than as noted in my dictated progress note. Diagnosis: Problems: (1) Alzheimer's dementia (2) Anxiety disorder (3) Impulse control disorder (4) Major depressive disorder, recurrent episode (5) Major neurocognitive disorder, due to vascular disease, with behavioral disturbance, mild (6) Parkinson's disease (7) Vascular dementia with behavioral disturbance OSMANY KEYES MD Apr 14, 2017 21:11
[2017-04-15 06:05] VITALS: BP 120/78
[2017-04-15 07:50] LABS: BASO # 0.1 x10^3/uL (0.0-0.2); BASO % 1 % (0-3); EOS # 0.5 x10^3/uL (0.0-0.7); EOS % 5 % (0-3); HEMATOCRIT 41.5 % (39.0-53.0); HEMOGLOBIN 14.3 g/dL (13.0-17.5); LYMPH # 2.7 x10^3/uL (1.0-4.8); LYMPH % 29 % (24-48); MEAN CORPUSCULAR HEMOGLOBIN 32 pg (25-35); MEAN CORPUSCULAR HGB CONC 34 g/dL (31-37); MEAN CORPUSCULAR VOLUME 94 fL (79-100); MONO # 1.2 x10^3/uL (0.0-1.1); MONO % 13 % (0-9); NEUT # 4.8 x10^3uL (1.8-7.7); NEUT % 52 % (31-73); PLATELET COUNT 258 x10^3/uL (140-400); RED BLOOD COUNT 4.42 x10^6/uL (4.30-5.70); RED CELL DISTRIBUTION WIDTH 13.6 % (11.5-14.5); WHITE BLOOD COUNT 9.3 x10^3/uL (4.0-11.0)
[2017-04-15] MEDS: OMEGA-3 FATTY ACIDS/FISH OIL 1,000 MG CAPSULE. PO SCH (08:04)
[2017-04-15] MEDS: MAGNESIUM OXIDE 400 MG TABLET PO SCH ×2 (08:05→19:50)
[2017-04-15] MEDS: QUEtiapine 25 MG TABLET. PO SCH ×3 (08:05→16:29)
[2017-04-15] MEDS: PANTOPRAZOLE 40 MG TABLET. PO SCH (08:05)
[2017-04-15] MEDS: MEMANTINE 10 MG TABLET. PO SCH ×2 (08:05→19:50)
[2017-04-15] MEDS: SERTRALINE 50 MG TABLET. PO SCH (08:05)
[2017-04-15] MEDS: CARBIDOPA/LEVODOPA 25/100MG TABLET PO SCH ×2 (08:06→19:51)
[2017-04-15] MEDS: hydroCHLOROthiazide 12.5 MG CAPSULE PO SCH (08:06)
[2017-04-15] MEDS: LISINOPRIL 20 MG TABLET PO SCH (08:06)
[2017-04-15 08:11] LABS: ALBUMIN/GLOBULIN RATIO 0.8 (1.0-1.7); CALCIUM 9.1 mg/dL (8.5-10.1); GFR 71.2; MAGNESIUM 1.8 mg/dL (1.8-2.4); POTASSIUM 4.3 mmol/L (3.5-5.1); TOTAL BILIRUBIN 0.4 mg/dL (0.2-1.0); TOTAL PROTEIN 6.7 g/dL (6.4-8.2)
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
--- NOTE | 2017-04-15 12:03 | PN ---
DATE: 04/15/2017 This is a late entry 04/14/2017 covers elements not covered in my initial note 04/14/2017. I met with the patient in the evening of 04/14/2017, patient slept 6-1/2 hours previous evening. Has been sexually inappropriate per nursing report, agitated at 3:00 p.m. again. Paranoid, somewhat suspicious, delusional, believing his daughter was to coming to discharge him which is similar to what happened the day before. No CV, , pulmonary, eye, ENT system symptoms on review. He is wearing his red hat, [employer] [place] [employer], and seems to be proud of this. MENTAL STATUS EXAM: Oriented to himself. Insight, judgment, recent and remote memory, attention, concentration, fund of knowledge poor, consistent with his diagnosis unchanged from initial note. PLAN: Increase Provera to 5 mg a day. Rest unchanged from initial note. MAN Diana KEYES MD DR: MARAL/quinton JOB#: [id number] / [id number]
[2017-04-15] MEDS ORDERED: MIRT15TA PO (15:33)
[2017-04-15] MEDS ORDERED: OLAN2.5T3 PO (15:34)
[2017-04-15] MEDS ORDERED: SERT50TA8 PO (15:37)
[2017-04-15] MEDS ORDERED: QUET25TA5 PO ×2 (15:37→15:39)
[2017-04-15] MEDS ORDERED: ACET325T9 PO (15:50)
[2017-04-15] MEDS ORDERED: CARB1TAB2 PO (15:51)
[2017-04-15] MEDS ORDERED: CHOL500016 PO (15:51)
[2017-04-15] MEDS ORDERED: CYAN10002 IJ (15:53)
[2017-04-15 16:03] VITALS: BP 128/75
[2017-04-15] MEDS: MIRTAZAPINE 15 MG TABLET PO SCH (19:50)
[2017-04-15] MEDS: traZODone 100 MG TABLET. PO SCH (19:50)
[2017-04-15] MEDS: DONEPEZIL HCL 10 MG TABLET PO SCH (19:50)
[2017-04-15] MEDS: MELATONIN 3 MG TABLET PO SCH (19:51)
--- NOTE | 2017-04-15 20:15 | PDOC ---
Exam Note: Je Note: Please also refer to the separate dictated note~for this date of service dictated separately.~Patient seen individually. Discussed the patient with Nursing staff reviewed the chart.~Reviewed interim history and current functioning. Reviewed vital signs,~Labs/ Radiology~and current medications noted below. Continue current treatment with the changes noted in the dictated addendum note Assessment: Vital Signs: Vital Signs Date Time Temp Pulse Resp B/P (MAP) Pulse Ox O2 Delivery O2 Flow Rate FiO2 04/15/17 16:03 98.4 69 18 128/75 (92) 96 04/13/17 16:04 Room Air I&O Intake and Output 04/15/17 07:00 Intake Total 1440 ml Balance 1440 ml Intake Oral 1440 ml Labs: Laboratory Tests Test 04/15/17 07:38 White Blood Count 9.3 x10^3/uL (4.0-11.0) Red Blood Count 4.42 x10^6/uL (4.30-5.70) Hemoglobin 14.3 g/dL (13.0-17.5) Hematocrit 41.5 % (39.0-53.0) Mean Corpuscular Volume 94 fL (79-100) Mean Corpuscular Hemoglobin 32 pg (25-35) Mean Corpuscular Hemoglobin Concent 34 g/dL (31-37) Red Cell Distribution Width 13.6 % (11.5-14.5) Platelet Count 258 x10^3/uL (140-400) Neutrophils (%) (Auto) 52 % (31-73) Lymphocytes (%) (Auto) 29 % (24-48) Monocytes (%) (Auto) 13 % (0-9) H Eosinophils (%) (Auto) 5 % (0-3) H Basophils (%) (Auto) 1 % (0-3) Neutrophils # (Auto) 4.8 x10^3uL (1.8-7.7) Lymphocytes # (Auto) 2.7 x10^3/uL (1.0-4.8) Monocytes # (Auto) 1.2 x10^3/uL (0.0-1.1) H Eosinophils # (Auto) 0.5 x10^3/uL (0.0-0.7) Basophils # (Auto) 0.1 x10^3/uL (0.0-0.2) Sodium Level 138 mmol/L (136-145) Potassium Level 4.3 mmol/L (3.5-5.1) Chloride Level 103 mmol/L (98-107) Carbon Dioxide Level 31 mmol/L (21-32) Anion Gap 4 (6-14) L Blood Urea Nitrogen 12 mg/dL (8-26) Creatinine 1.0 mg/dL (0.7-1.3) Estimated GFR (Cockcroft-Gault) 71.2 BUN/Creatinine Ratio 12 (6-20) Glucose Level 97 mg/dL (70-99) Calcium Level 9.1 mg/dL (8.5-10.1) Magnesium Level 1.8 mg/dL (1.8-2.4) Total Bilirubin 0.4 mg/dL (0.2-1.0) Aspartate Amino Transferase (AST) 25 U/L (15-37) Alanine Aminotransferase (ALT) 36 U/L (16-63) Alkaline Phosphatase 53 U/L (46-116) Total Protein 6.7 g/dL (6.4-8.2) Albumin 3.0 g/dL (3.4-5.0) L Albumin/Globulin Ratio 0.8 (1.0-1.7) L Current Medications: Meds: Current Medications Influenza Virus Vaccine Quadrival (Fluarix Quad 9641-1454 Syringe) 0.5 ml ONCE ONCE VAX IM ; Start 03/26/17 at 09:00; Stop 03/26/17 at 19:21; Status DC Acetaminophen (Tylenol) 650 mg PRN Q6HRS PRN PO PAIN / TEMP; Start 03/26/17 at 03:00 Multi-Ingredient Ointment (Analgesic [place]) 1 mary PRN QID PRN TP MUSCLE PAIN; Start 03/26/17 at 03:00 Al Hydroxide/Mg Hydroxide (Mylanta Plus Xs) 15 ml PRN AFTMEALHC PRN PO DYSPEPSIA; Start 03/26/17 at 03:00 Magnesium Hydroxide (Milk Of Magnesia) 2,400 mg PRN QHS PRN PO CONSTIPATION Last administered on 04/12/17t 16:27; Start 03/26/17 at 03:00 Citalopram Hydrobromide (CeleXA) 10 mg DAILY PO Last administered on 10:37; Start 03/26/17 at 09:00; Stop 03/26/17 at 19:27; Status DC Donepezil HCl (Aricept) 10 mg QHS PO Last administered on 04/15/17 19:50; Start 03/26/17 at 21:00 Memantine (Namenda) 10 mg BID PO Last administered on 04/15/17 19:50; Start 03/26/17 at 09:00 Carbidopa/Levodopa (Sinemet Cr) 1 tab.sa BID PO Last administered on 04/02/17 09:08; Start 03/26/17 at 09:00; Stop 04/02/17 at 19:48; Status DC Levetiracetam (Keppra) 500 mg BID PO Last administered on 03/29/17 07:12; Start 03/26/17 at 09:00; Stop 03/29/17 at 17:44; Status DC Lisinopril (Prinivil) 20 mg DAILY PO Last administered on 04/15/17 08:06; Start 03/26/17 at 09:00 Hydrochlorothiazide (Microzide) 12.5 mg DAILY PO Last administered on 08:06; Start 03/26/17 at 09:00 Fish Oil (Fish Oil) 1,000 mg DAILY PO Last administered on 04/15/17 08:04; Start 03/26/17 at 09:00 Pantoprazole Sodium (Protonix) 40 mg DAILYAC PO Last administered on 08:05; Start 03/26/17 at 07:30 Olanzapine (ZyPREXA ZYDIS) 2.5 mg PRN Q2HR PRN PO PSYCHOSIS Last administered on 04/14/17 19:32; Start 03/26/17 at 06:45 Trazodone HCl (Desyrel) 50 mg QHS PO ; Start 03/26/17 at 21:00; Stop 03/26/17 at 21:00; Status DC Trazodone HCl (Desyrel) 50 mg PRN QHS PRN PO INSOMNIA; Start 03/26/17 at 06:45 ; Stop 03/26/17 at 19:27; Status DC Influenza Virus Vaccine Quadrival (Fluarix Quad [id number] Syringe) 0.5 ml ONCE ONCE VAX IM Last administered on 03/28/17 15:51; Start 03/28/17 at 09:00; Stop 03/28/17 at 09:01; Status DC Trazodone HCl (Desyrel) 100 mg PRN QHS PRN PO INSOMNIA; Start 03/26/17 at 19: 30; Stop 03/26/17 at 19:32; Status DC Trazodone HCl (Desyrel) 100 mg QHS PO ; Start 03/26/17 at 21:00; Stop at 21:00; Status DC Sertraline HCl (Zoloft) 50 mg DAILY PO Last administered on 04/15/17 08:05; Start 03/27/17 at 09:00 Mirtazapine (Remeron) 7.5 mg QHS PO Last administered on 03/30/17 19:38; Start 03/26/17 at 21:00; Stop 03/31/17 at 19:34; Status DC Trazodone HCl (Desyrel) 100 mg QHS PO Last administered on 04/15/17 19:50; Start 03/26/17 at 21:00 Trazodone HCl (Desyrel) 100 mg PRN QHS PRN PO Insomnia Last administered on 21:41; Start 03/26/17 at 19:30 Quetiapine Fumarate (SEROquel) 12.5 mg [id number] PO Last administered on 03/30/17 13:48; Start 03/28/17 at 09:00; Stop 03/31/17 at 02:54; Status DC Quetiapine Fumarate (SEROquel) 25 mg STK-MED ONCE .ROUTE ; Start 03/28/17 at 08: 02; Stop 03/28/17 at 08:03; Status DC Cyanocobalamin (Vitamin B-12) 1,000 mcg [id number] IM Last administered on 15:51; Start 03/28/17 at 14:00 Vitamin D (Vitamin D3) 50,000 unit WEEKLY PO Last administered on 04/11/17 07 :43; Start 03/28/17 at 14:00 Divalproex Sodium (Depakote Er) 500 mg QHS PO Last administered on 04/01/17 18 :38; Start 03/29/17 at 21:00; Stop 04/02/17 at 19:42; Status DC Quetiapine Fumarate (SEROquel) 12.5 mg DAILYWSUP PO ; Start 03/31/17 at 17:00; Stop 03/31/17 at 17:00; Status DC Quetiapine Fumarate (SEROquel) 12.5 mg TID@0900,1400,1700 PO Last administered on 04/10/17 17:53; Start 03/31/17 at 09:00; Stop 04/10/17 at 18:35; Status DC Mirtazapine (Remeron) 15 mg QHS PO Last administered on 04/15/17 19:50; Start 03/31/17 at 21:00 Melatonin 3 mg QHS PO Last administered on 04/15/17 19:51; Start 04/02/17 at 21:00 Divalproex Sodium (Depakote Sprinkles) 500 mg HS PO Last administered on 19:58; Start 04/02/17 at 21:00; Stop 04/05/17 at 11:28; Status DC Carbidopa/Levodopa (Sinemet 25/100) 2 tab BID PO Last administered on 19:51; Start 04/02/17 at 21:00 Magnesium Oxide (Magnesium Oxide) 400 mg BID PO Last administered on 19:50; Start 04/03/17 at 21:00 Medroxyprogesterone Acetate (Provera) 2.5 mg DAILY PO Last administered on 07:30; Start 04/07/17 at 09:00; Stop 04/14/17 at 18:45; Status DC Quetiapine Fumarate (SEROquel) 12.5 mg DAILY@1400 PO Last administered on 04/15 13:24; Start 04/11/17 at 14:00 Quetiapine Fumarate (SEROquel) 25 mg BID@0900,1700 PO Last administered on 16:29; Start 04/11/17 at 09:00 Medroxyprogesterone Acetate (Provera) 5 mg DAILY PO Last administered on 08:07; Start 04/15/17 at 09:00 Active Scripts Active Reported Cyanocobalamin Injection (Cyanocobalamin (Vitamin B-12)) 1,000 Mcg/1 Ml Vial 1, 000 Mcg IJ [id number] Vitamin D3 (Cholecalciferol (Vitamin D3)) 5,000 Unit Tablet 1 Tab PO WEEKLY Sinemet 25-100 Mg Tablet (Carbidopa/Levodopa) 1 Each Tablet 2 Tab PO BID Tylenol (Acetaminophen) 325 Mg Tablet 650 Mg PO PRN Q6HRS PRN Seroquel (Quetiapine Fumarate) 25 Mg Tablet 12.5 Mg PO [id number] Sertraline Hcl 50 Mg Tablet 50 Mg PO DAILY Seroquel (Quetiapine Fumarate) 25 Mg Tablet 25 Mg PO [id number],1700 Zyprexa (Olanzapine) 2.5 Mg Tablet 2.5 Mg PO PRN Q2HR PRN Remeron (Mirtazapine) 15 Mg Tablet 1 Tab PO QHS Prilosec Otc (Omeprazole Magnesium) 20 Mg Tablet.dr 20 Mg PO DAILY [place] 3 1,000 Mg Softgel ([place]-3 Fatty Acids/Fish Oil) 1 Each Capsule 1,000 Mg PO DAILY Namenda (Memantine Hcl) 10 Mg Tablet 10 Mg PO BID Lisinopril 20 Mg Tablet 20 Mg PO DAILY Keppra (Levetiracetam) 500 Mg Tablet 500 Mg PO BID Hydrochlorothiazide Tablet (Hydrochlorothiazide) 12.5 Mg Tablet 12.5 Mg PO DAILY Aricept (Donepezil Hcl) 10 Mg Tablet 10 Mg PO QHS Celexa (Citalopram Hydrobromide) 10 Mg Tablet 10 Mg PO DAILY Sinemet Cr 50-200 Tablet (Carbidopa/Levodopa) 1 Each Tablet.er 1 Tab PO BID I have reviewed the current psychotropics carefully including drug interactions. Risk benefit ratio favors no change other than as noted in my dictated progress note. Diagnosis: Problems: (1) Alzheimer's dementia (2) Anxiety disorder (3) Impulse control disorder (4) Major depressive disorder, recurrent episode (5) Major neurocognitive disorder, due to vascular disease, with behavioral disturbance, mild (6) Parkinson's disease (7) Vascular dementia with behavioral disturbance OSMANY KEYES MD Apr 15, 2017 20:15
[2017-04-16] MEDS ORDERED: CHOL500050 PO (02:15)
[2017-04-16] MEDS ORDERED: MAGN400O7 PO (02:18)
[2017-04-16] MEDS ORDERED: MAG30ORA2 PO (02:18)
[2017-04-16] MEDS ORDERED: MELA3TAB2 PO (02:19)
[2017-04-16] MEDS ORDERED: MAGN400T22 PO (02:19)
[2017-04-16] MEDS ORDERED: METH29OI TP (02:20)
[2017-04-16] MEDS ORDERED: MEDR5TAB PO (02:23)
[2017-04-16] MEDS ORDERED: TRAZ-90 PO ×2 (02:24)
[2017-04-16 05:55] VITALS: BP 151/80
[2017-04-16] MEDS: OMEGA-3 FATTY ACIDS/FISH OIL 1,000 MG CAPSULE. PO SCH (07:52)
[2017-04-16] MEDS: PANTOPRAZOLE 40 MG TABLET. PO SCH (07:52)
[2017-04-16] MEDS: MEMANTINE 10 MG TABLET. PO SCH (07:52)
[2017-04-16] MEDS: MAGNESIUM OXIDE 400 MG TABLET PO SCH (07:52)
[2017-04-16] MEDS: SERTRALINE 50 MG TABLET. PO SCH (07:52)
[2017-04-16 07:53] VITALS: BP 151/80
[2017-04-16] MEDS: CARBIDOPA/LEVODOPA 25/100MG TABLET PO SCH (07:53)
[2017-04-16] MEDS: QUEtiapine 25 MG TABLET. PO SCH (07:53)
[2017-04-16] MEDS: hydroCHLOROthiazide 12.5 MG CAPSULE PO SCH (07:53)
[2017-04-16] MEDS: LISINOPRIL 20 MG TABLET PO SCH (07:53)
--- NOTE | 2017-04-16 09:54 | PDOC ---
Exam Note: Je Note: Please also refer to the separate dictated note~for this date of service dictated separately.~Patient seen individually. Discussed the patient with Nursing staff reviewed the chart.~Reviewed interim history and current functioning. Reviewed vital signs,~Labs/ Radiology~and current medications noted below. Continue current treatment with the changes noted in the dictated addendum note Assessment: Vital Signs: Vital Signs Date Time Temp Pulse Resp B/P (MAP) Pulse Ox O2 Delivery O2 Flow Rate FiO2 04/16/17 07:53 55 151/80 04/16/17 05:55 98.3 16 94 04/13/17 16:04 Room Air I&O Intake and Output 04/16/17 06:59 Intake Total 960 ml Balance 960 ml Intake Oral 960 ml Current Medications: Meds: Current Medications Influenza Virus Vaccine Quadrival (Fluarix Quad [id number] Syringe) 0.5 ml ONCE ONCE VAX IM ; Start 03/26/17 at 09:00; Stop 03/26/17 at 19:21; Status DC Acetaminophen (Tylenol) 650 mg PRN Q6HRS PRN PO PAIN / TEMP; Start 03/26/17 at 03:00 Multi-Ingredient Ointment (Analgesic [place]el[place]) 1 jerilyn PRN QID PRN TP MUSCLE PAIN; Start 03/26/17 at 03:00 Al Hydroxide/Mg Hydroxide (Mylanta Plus Xs) 15 ml PRN AFTMEALHC PRN PO DYSPEPSIA; Start 03/26/17 at 03:00 Magnesium Hydroxide (Milk Of Magnesia) 2,400 mg PRN QHS PRN PO CONSTIPATION Last administered on 04/12/17 16:27; Start 03/26/17 at 03:00 Citalopram Hydrobromide (CeleXA) 10 mg DAILY PO Last administered on 10:37; Start 03/26/17 at 09:00; Stop 03/26/17 at 19:27; Status DC Donepezil HCl (Aricept) 10 mg QHS PO Last administered on 04/15/17 19:50; Start 03/26/17 at 21:00 Memantine (Namenda) 10 mg BID PO Last administered on 04/16/17 07:52; Start 03/26/17 at 09:00 Carbidopa/Levodopa (Sinemet Cr) 1 tab.sa BID PO Last administered on 04/02/17 09:08; Start 03/26/17 at 09:00; Stop 04/02/17 at 19:48; Status DC Levetiracetam (Keppra) 500 mg BID PO Last administered on 03/29/17 07:12; Start 03/26/17 at 09:00; Stop 03/29/17 at 17:44; Status DC Lisinopril (Prinivil) 20 mg DAILY PO Last administered on 04/16/17 07:53; Start 03/26/17 at 09:00 Hydrochlorothiazide (Microzide) 12.5 mg DAILY PO Last administered on 07:53; Start 03/26/17 at 09:00 Fish Oil (Fish Oil) 1,000 mg DAILY PO Last administered on 04/16/17 07:52; Start 03/26/17 at 09:00 Pantoprazole Sodium (Protonix) 40 mg DAILYAC PO Last administered on 07:52; Start 03/26/17 at 07:30 Olanzapine (ZyPREXA ZYDIS) 2.5 mg PRN Q2HR PRN PO PSYCHOSIS Last administered on 04/14/17 19:32; Start 03/26/17 at 06:45 Trazodone HCl (Desyrel) 50 mg QHS PO ; Start 03/26/17 at 21:00; Stop 03/26/17 at 21:00; Status DC Trazodone HCl (Desyrel) 50 mg PRN QHS PRN PO INSOMNIA; Start 03/26/17 at 06:45 ; Stop 03/26/17 at 19:27; Status DC Influenza Virus Vaccine Quadrival (Fluarix Quad [id number] Syringe) 0.5 ml ONCE ONCE VAX IM Last administered on 03/28/17 15:51; Start 03/28/17 at 09:00; Stop 03/28/17 at 09:01; Status DC Trazodone HCl (Desyrel) 100 mg PRN QHS PRN PO INSOMNIA; Start 03/26/17 at 19: 30; Stop 03/26/17 at 19:32; Status DC Trazodone HCl (Desyrel) 100 mg QHS PO ; Start 03/26/17 at 21:00; Stop at 21:00; Status DC Sertraline HCl (Zoloft) 50 mg DAILY PO Last administered on 04/16/17 07:52; Start 03/27/17 at 09:00 Mirtazapine (Remeron) 7.5 mg QHS PO Last administered on 03/30/17 19:38; Start 03/26/17 at 21:00; Stop 03/31/17 at 19:34; Status DC Trazodone HCl (Desyrel) 100 mg QHS PO Last administered on 04/15/17 19:50; Start 03/26/17 at 21:00 Trazodone HCl (Desyrel) 100 mg PRN QHS PRN PO Insomnia Last administered on 21:41; Start 03/26/17 at 19:30 Quetiapine Fumarate (SEROquel) 12.5 mg [id number] PO Last administered on 03/30/17 13:48; Start 03/28/17 at 09:00; Stop 03/31/17 at 02:54; Status DC Quetiapine Fumarate (SEROquel) 25 mg STK-MED ONCE .ROUTE ; Start 03/28/17 at 08: 02; Stop 03/28/17 at 08:03; Status DC Cyanocobalamin (Vitamin B-12) 1,000 mcg [id number] IM Last administered on 15:51; Start 03/28/17 at 14:00 Vitamin D (Vitamin D3) 50,000 unit WEEKLY PO Last administered on 04/11/17 07 :43; Start 03/28/17 at 14:00 Divalproex Sodium (Depakote Er) 500 mg QHS PO Last administered on 04/01/17 18 :38; Start 03/29/17 at 21:00; Stop 04/02/17 at 19:42; Status DC Quetiapine Fumarate (SEROquel) 12.5 mg DAILYWSUP PO ; Start 03/31/17 at 17:00; Stop 03/31/17 at 17:00; Status DC Quetiapine Fumarate (SEROquel) 12.5 mg TID@0900,1400,1700 PO Last administered on 04/10/17 17:53; Start 03/31/17 at 09:00; Stop 04/10/17 at 18:35; Status DC Mirtazapine (Remeron) 15 mg QHS PO Last administered on 04/15/17 19:50; Start 03/31/17 at 21:00 Melatonin 3 mg QHS PO Last administered on 04/15/17 19:51; Start 04/02/17 at 21:00 Divalproex Sodium (Depakote Sprinkles) 500 mg HS PO Last administered on 19:58; Start 04/02/17 at 21:00; Stop 04/05/17 at 11:28; Status DC Carbidopa/Levodopa (Sinemet 25/100) 2 tab BID PO Last administered on 07:53; Start 04/02/17 at 21:00 Magnesium Oxide (Magnesium Oxide) 400 mg BID PO Last administered on 07:52; Start 04/03/17 at 21:00 Medroxyprogesterone Acetate (Provera) 2.5 mg DAILY PO Last administered on 07:30; Start 04/07/17 at 09:00; Stop 04/14/17 at 18:45; Status DC Quetiapine Fumarate (SEROquel) 12.5 mg DAILY@1400 PO Last administered on 04/15 13:24; Start 04/11/17 at 14:00 Quetiapine Fumarate (SEROquel) 25 mg BID@0900,1700 PO Last administered on 07:53; Start 04/11/17 at 09:00 Medroxyprogesterone Acetate (Provera) 5 mg DAILY PO Last administered on 07:54; Start 04/15/17 at 09:00 Active Scripts Active Reported Trazodone Hcl 100 Mg Tablet 100 Mg PO PRN QHS PRN Trazodone Hcl 100 Mg Tablet 100 Mg PO QHS Provera (Medroxyprogesterone Acetate) 5 Mg Tablet 5 Mg PO DAILY Analgesic [place] (Methyl Salicylate/Menthol) 28 Gm Oint...g. 1 Jerilyn TP PRN QID PRN Melatonin 3 Mg Tablet 3 Mg PO QHS Mag-Oxide (Magnesium Oxide) 400 Mg Tablet 400 Mg PO BID Milk Of Magnesia (Magnesium Hydroxide) 400 Mg/5 Ml Oral.susp 2,400 Mg PO PRN QHS PRN Mag-Al Plus Xs Suspension (Mag Hydrox/Al Hydrox/Simeth) 30 Ml Oral.susp 15 Ml PO PRN AFTMEALHC PRN Vitamin D3 (Cholecalciferol (Vitamin D3)) 50,000 Unit Capsule 50,000 Unit PO WEEKLY Cyanocobalamin Injection (Cyanocobalamin (Vitamin B-12)) 1,000 Mcg/1 Ml Vial 1, 000 Mcg IJ [id number] Vitamin D3 (Cholecalciferol (Vitamin D3)) 5,000 Unit Tablet 1 Tab PO WEEKLY Sinemet 25-100 Mg Tablet (Carbidopa/Levodopa) 1 Each Tablet 2 Tab PO BID Tylenol (Acetaminophen) 325 Mg Tablet 650 Mg PO PRN Q6HRS PRN Seroquel (Quetiapine Fumarate) 25 Mg Tablet 12.5 Mg PO [id number] Sertraline Hcl 50 Mg Tablet 50 Mg PO DAILY Seroquel (Quetiapine Fumarate) 25 Mg Tablet 25 Mg PO BID9,1700 Zyprexa (Olanzapine) 2.5 Mg Tablet 2.5 Mg PO PRN Q2HR PRN Remeron (Mirtazapine) 15 Mg Tablet 1 Tab PO QHS Prilosec Otc (Omeprazole Magnesium) 20 Mg Tablet.dr 20 Mg PO DAILY Cool 3 1,000 Mg Softgel (Cool-3 Fatty Acids/Fish Oil) 1 Each Capsule 1,000 Mg PO DAILY Namenda (Memantine Hcl) 10 Mg Tablet 10 Mg PO BID Lisinopril 20 Mg Tablet 20 Mg PO DAILY Keppra (Levetiracetam) 500 Mg Tablet 500 Mg PO BID Hydrochlorothiazide Tablet (Hydrochlorothiazide) 12.5 Mg Tablet 12.5 Mg PO DAILY Aricept (Donepezil Hcl) 10 Mg Tablet 10 Mg PO QHS Celexa (Citalopram Hydrobromide) 10 Mg Tablet 10 Mg PO DAILY Sinemet Cr 50-200 Tablet (Carbidopa/Levodopa) 1 Each Tablet.er 1 Tab PO BID I have reviewed the current psychotropics carefully including drug interactions. Risk benefit ratio favors no change other than as noted in my dictated progress note. Diagnosis: Problems: (1) Vascular dementia with behavioral disturbance (2) Parkinson's disease (3) Major neurocognitive disorder, due to vascular disease, with behavioral disturbance, mild (4) Major depressive disorder, recurrent episode (5) Impulse control disorder (6) Anxiety disorder OSMANY KEYES MD Apr 16, 2017 09:54
--- NOTE | 2017-04-16 13:16 | DS ---
DATE OF DISCHARGE: 04/16/2017 DISCHARGE SUMMARY/PSYCHIATRIC PROGRESS NOTE This note covers elements not covered in my initial note of 04/16/2017. REASON FOR ADMISSION: Please refer to the admission history for details. Briefly, the patient is an 86-year-old male referred to us from [facility] where he presented from home on account of increased agitation, aggression, being combative with his daughters. He was exit seeking, attempting to ask strangers for a ride to [place]. He was at risk for injury to self due to elopement next to her highway. He was trying to drive and he is extremely confused, unaware of his surroundings. All of the above were deemed dangerous to a significant extent for him. Doctors were unable to manage him due to his worsening dementia and delusions and he is referred for inpatient psychiatric stabilization. 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 SIGNIFICANT FINDINGS AND CLINICAL COURSE: Following admission, the patient was seen daily individually by myself, followed medically per Dr. Castellanos/Dr. Chamberlain. He would constantly wear his red hat, Make Genny Greater Again, was very proud of this, was paranoid, delusional, irritable, labile, very forgetful with short-term memory deficits. Adjustments were made in his psychotropics. He seemed to respond to a combination of Namenda 10 mg b.i.d.; Zoloft 50 mg a day; Aricept 10 mg at bedtime; Zyprexa p.r.n.; trazodone 100 mg at bedtime, may repeat x 1; Remeron 15 mg at bedtime; Seroquel 12.5 mg at 1400 and 25 mg at 0900 and 1700; melatonin 3 mg at bedtime; Provera 5 mg a day. Provera was started because he was sexually inappropriate with the staff and other patients and somewhat sexually aggressive and seemed to respond to this. CONDITION AT DISCHARGE: Improved. REVIEW OF SYSTEMS: Prior to discharge on 04/16/2017, no CV, , pulmonary, eye, ENT system symptoms on review. Reliability poor. MENTAL STATUS EXAM: Oriented to himself. Insight, judgment, recent and remote memory, attention, concentration, fund of knowledge poor, consistent with his diagnosis mentioned in my initial note. FINAL DIAGNOSES: Major neurocognitive disorder, Alzheimer, vascular with depression, delusion, behavioral disturbance; anxiety disorder, unspecified; impulse control disorder, unspecified. Rest unchanged from admission. DISCHARGE MEDICATIONS: Please refer to the MRAD. DISCHARGE INSTRUCTIONS: His outpatient psychiatric and medical followup at the residential. Time for discharge day management greater than 30 minutes. MAN Diana KEYES MD DR: MARAL/quinton JOB#: [id number] / [id number]
--- NOTE | 2017-04-16 23:14 | PN ---
DATE: 04/15/2017 This is a late entry 04/15/2017, covers the elements not covered in my initial note 04/15/2017. I met with the patient evening of 04/15/2017. The patient remains confused, gets a little agitated at times, but redirects. REVIEW OF SYSTEMS: No CV, , pulmonary, eye, ENT system symptoms on review. Reliability poor. MENTAL STATUS EXAM: Oriented to himself. Insight, judgment, recent and remote memory, attention, concentration, fund of knowledge poor, consistent with his diagnosis. The patient was wearing his red hat, make Genny great again. , wears most of the day. IMPRESSION: Unchanged from initial note. PLAN: No change from the psychiatric standpoint from my initial note, may need to increase, schedule Seroquel if agitation persists or Provera if sexual aggression resurfaces. MAN Diana KEYES MD DR: MARAL/quinton JOB#: [id number] / [id number]
== END 2017-04-16 11:00 | DRG 884 ==
LOC: GEROPSY 02:35
PROVIDERS: ADMIT Psychiatry & Neurology Psychiatry; ATTEND Psychiatry & Neurology Psychiatry
DX: F01.51 Vascular dementia, unspecified severity, with behavioral disturbance (principal); G30.9 Alzheimer's disease, unspecified; G20 Parkinson's disease; E83.42 Hypomagnesemia; C61 Malignant neoplasm of prostate; F22 Delusional disorders; F02.81 Dementia in other diseases classified elsewhere, unspecified severity, with behavioral disturbance; R17 Unspecified jaundice; F33.9 Major depressive disorder, recurrent, unspecified; F41.9 Anxiety disorder, unspecified; K21.9 Gastro-esophageal reflux disease without esophagitis; G40.909 Epilepsy, unspecified, not intractable, without status epilepticus; E78.5 Hyperlipidemia, unspecified; I10 Essential (primary) hypertension; F63.9 Impulse disorder, unspecified; E53.8 Deficiency of other specified B group vitamins; G47.9 Sleep disorder, unspecified; Z88.0 Allergy status to penicillin; Z79.899 Other long term (current) drug therapy
CPT/HCPCS: 36415; 80053; 80061; 80164; 81001; 82306; 82607; 83036; 83540; 83550; 83735; 84436; 84443; 84480; 85025; 86592; 86593; 90686; 93005; J3420